=== PATIENT | female | born 1995 | race African-American/Black ===

== ENCOUNTER 2023-12-11 12:52 | Emergency (ER) | payer BC, SELFPAY ==
--- NOTE | ~2023-12-11 | US_ITS ---
EXAMINATION: US OB <=14 wk fetus w TV INDICATION: cramping, bleeding, abnormal US TECHNIQUE: Sonography of the pelvis was performed by transabdominal and transvaginal techniques. COMPARISON: None. RESULT: Uterus: 9.9 x 5.8 x 6.2 cm. Anteverted. Small volume endometrial fluid. Homogenous myometrium. Intrauterine gestational sac: Single present. Mean Sac Diameter: 0.96 cm, corresponding gestational age 5 week 5 days. Yolk sac: Not visualized. Embryo: Not seen. Subgestational hematoma: Absent . Right ovary: 2.5 x 0.7 x 1.5 cm. Vascular flow is present. Large ovarian cyst measuring 12.5 cm x 10.3 x 9.8, mostly anechoic, increased through transmission, thin imperceptible wall, thin avascular septum. Left ovary: 4.3 x 2.5 x 3.1 cm. Vascular flow is present. 1.2 cm simple cyst or dominant follicle. Pelvis free fluid: None. IMPRESSION: Intrauterine of uncertain viability, possibly due to early gestational age. Estimated Gestational Age: 5 weeks, 5 days by mean gestational sac diameter. GUILLE by ultrasound 5. Small volume endometrial fluid, likely blood given the history of hemorrhage. 12.5 cm minimally complicated right ovarian cyst, likely benign. Recommend serial beta-hCG and short-term follow-up ultrasound to establish viability, at which time t he the right ovarian cyst can also be reassessed. Typically the follow-up recommendation for such a c yst would be in 2-6 months so additional follow-up may be required after the viability scan. Reviewed, dictated and finalized at location K. IMPRESSION: Intrauterine of uncertain viability, possibly due to early gestationa l age. Estimated Gestational Age: 5 weeks, 5 days by mean gestational sac diameter. E DD by ultrasound 08/07/24. Small volume endometrial fluid, likely blood given the history of hemorrhage. 12.5 cm minimally complicated right ovarian cyst, likely benign. Recommend serial beta-hCG and short-term follow-up ultrasound to establish viab ility, at which time the the right ovarian cyst can also be reassessed. Typical ly the follow-up recommendation for such a cyst would be in 2-6 months so addit ional follow-up may be required after the viability scan.
[2023-12-11 12:57] VITALS: BP 149/93; PULSE 99; RESP 20; TEMP 36.8; O2SAT 100
--- NOTE | 2023-12-11 13:00 | ED.RECABL ---
HPI - Recheck/Abnormal Lab/Rx General Chief Complaint: Recheck/Abnormal Lab/Rx Stated Complaint: request US for Time Seen by Provider: 12/11/23 13:00 Focused HPI: This is a 28-year-old female, about 8 weeks by LMP, that presents to the emergency department for an abnormal outpatient ultrasound. Reports she has had positive serum test with her OB. She went today for an elective outpatient OB ultrasound which did not show an intrauterine . She was prompted to be seen in the ER. She has been having some spotting and mild cramping. GENERAL: Well-appearing, well-nourished, and in no acute distress. HEAD: Normocephalic, atraumatic. CHEST: Clear to auscultation. ?No respiratory distress. HEART: Regular rate and rhythm.? NEURO: ?Alert and oriented x3. Patient screened in triage and initial orders placed.? ?Additional care and disposition to be based upon?diagnostic testing and treatment. Source: patient Mode of arrival: ambulatory Limitations: no limitations Related Data Allergies Allergy/AdvReac Type Severity Reaction Status Date / Time No Known Allergies Allergy Verified 12/11/23 12:59 Review of Systems Review of Systems: CONSTITUTIONAL: Denies fever GASTROINTESTINAL: Reports pelvic cramping. All systems reviewed & are unremarkable except as noted in HPI and below PMFSH Past Medical History Medical History (Updated 12/11/23 @ 16:31 by Raquel Dooley PA-C) History of hypertension Social History Social History (Updated 12/11/23 @ 13:29 by Raquel Dooley PA-C) Substance use: never Exam Narrative: GENERAL: Well-appearing, well-nourished, and in no acute distress. HEAD: Normocephalic, atraumatic. EYES: EOMI. CHEST: Clear to auscultation. No respiratory distress. No wheezes rales or rhonchi HEART: Regular rate and rhythm. No murmur heard. Normal peripheral pulses. ABDOMEN: Soft, nontender, nondistended, normal active bowel sounds. EXTREMITIES: Normal range of motion. No edema. SKIN: Warm, dry, no rash. NEURO: No focal deficits. Alert and oriented x3. PSYCH: Normal mood and affect Course Course Emergency Course: patient updated on workup and agrees with plan of care Vital Signs Vital signs: Vital Signs Temperature 98.3 F 12/11/23 12:57 Pulse Rate 99 12/11/23 12:57 Respiratory Rate 20 12/11/23 12:57 Blood Pressure 149/93 H 12/11/23 12:57 Pulse Oximetry 100 12/11/23 12:57 Oxygen Delivery Room Air 12/11/23 12:57 Temperature 98.3 F 12/11/23 12:57 Pulse Rate 99 12/11/23 12:57 Respiratory Rate 20 12/11/23 12:57 Blood Pressure 149/93 H 12/11/23 12:57 Pulse Oximetry 100 12/11/23 12:57 Oxygen Delivery Room Air 12/11/23 12:57 MDM - Recheck/Abnormal Lab/Rx MDM Narrative Medical decision making narrative: Patient presents to the emergency department for an abnormal outpatient ultrasound. Has had positive serum test with her OB. Had an elective outpatient ultrasound imaging center which did not show an intrauterine . She was prompted to be seen in the ER. She is afebrile and nontoxic appearing. CBC and metabolic panel without concerning findings. Quantitative beta-hCG 24,869. Patient is O positive. She was reporting some mild spotting. Obstetric ultrasound shows intrauterine of uncertain viability. Also shows an ovarian cyst. Patient reports this is known to her. Patient updated on her workup and agrees with plan of care. Will be given order for repeat quantitative beta hCG. Instructed to have close follow-up with her OB and on pelvic rest. She was given warnings to return to the ER Differential Diagnosis Differential diagnosis: Likely other ( miscarriage, threatened miscarriage, ovarian cyst) Lab Data Attestation: I reviewed the patient's lab results. 12/11/23 13:17 12/11/23 13:17 Labs: Lab Results 12/11/23 Range/Units 13:17 WBC 5.5 (4.5-10.0) K
[2023-12-11 13:29] LABS: Basophils Percent Auto 0.5 % (0.2-1.2); Eosinophils Absolute Auto 0.1 K/mm3 (0-0.3); Eosinophils Percent Auto 1.6 % (0-4.4); Hemoglobin 13.6 g/dL (12.0-15.0); Immature Granulocyte Absolute 0.02 K/mm3 (0.00-0.031); Immature Granulocyte Percent A 0.4 % (0-0.5); Lymphocytes Absolute Auto 1.47 K/mm3 (0.9-3.2); Lymphocytes Percent Auto 26.6 % (18.3-44.2); Mean Corpuscular HGB Conc 32.4 g/dl (32-36); Mean Corpuscular Hemoglobin 26.3 pg (26-34); Mean Corpuscular Volume 81.1 fl (80-100); Mean Platelet Volume 9.3 fl (7.4-10.4); Monocytes Absolute Auto 0.5 K/mm3 (0.1-0.6); Monocytes Percent Auto 8.9 % (2.6-8.5); Neutrophils Absolute Auto 3.4 K/mm3 (1.3-6.7); Platelet Count Result 283 k/mm3 (150-375); Red Blood Count 5.18 M/mm3 (4.2-5.4); Red Cell Distribution Width 13.3 % (11.5-14.5); White Blood Count 5.5 K/mm3 (4.5-10.0)
[2023-12-11 13:43] LABS: Alanine Aminotransferase 32 U/L (6-35); Albumin Level 4.8 g/dL (3.5-5.1); Alkaline Phosphatase 55 U/L (38-126); Anion Gap 11 mmol/L (4-12); Aspartate Amino Transferase 29 U/L (14-36); Bilirubin,Total 1.2 mg/dL (0.2-1.3); Blood Urea Nitrogen 7 mg/dL (7-17); Calcium 9.6 mg/dL (8.4-10.2); Carbon Dioxide 21 mmol/L (22-30); Chloride 105 mmol/L (98-107); Estimated CRCL calculation 93 ml/min; Estimated Glomerular Filt Rate > 60; Glucose 82 mg/dL (65-110); Potassium 3.8 mmol/L (3.4-5.0); Sodium 137 mmol/L (137-145)
[2023-12-11 16:41] VITALS: BP 129/83; PULSE 71; RESP 16; TEMP 36.8; O2SAT 100
== END 2023-12-11 16:35 | disposition home or self-care (01) ==
PROVIDERS: Emergency Provider Physician Assistant
DX: O20.9 Hemorrhage in early pregnancy, unspecified (principal); O34.81 Maternal care for other abnormalities of pelvic organs, first trimester; N83.201 Unspecified ovarian cyst, right side; Z3A.01 Less than 8 weeks gestation of pregnancy
CPT/HCPCS: 36415; 76801; 76817; 80053; 84702; 85025; 85461; 86850; 86900; 86901; 99284

== ENCOUNTER 2024-04-24 17:32 | Emergency (ER) | payer BC, SELFPAY ==
[2024-04-24 17:39] VITALS: BP 167/100; PULSE 95; RESP 16; TEMP 36.4; O2SAT 100
[2024-04-24 18:38] VITALS: BP 154/95; PULSE 98; RESP 16; O2SAT 99
[2024-04-24 19:23] VITALS: BP 135/85; PULSE 85; RESP 20; TEMP 36.6; O2SAT 99
[2024-04-24 19:24] VITALS: PULSE 85
[2024-04-24 20:12] LABS: Add Urine Microscopic? YES; Appearance Urine Clear (Clear); Bacteria Urine None Seen /hpf; Bilirubin Urine Negative (Negative); Blood Urine Negative (Negative); Color Urine Yellow (Yellow); Glucose Urine UA Negative (Negative); Ketones Urine Negative (Negative); Leukocyte Esterase Ur Trace LEU/UL (Negative); Nitrate Urine Negative (Negative); Non Pathogenic Casts 0-2; Protein Urine Negative (Negative); RBC Urine 0-2 /hpf (0-2); Specific Grav Ur 1.012 (1.001-1.035); Squamous Epithelial Cell Urine Few /hpf (Few); Urobilinogen Urine 0.2 mg/dL (<2.0); WBC Urine 0-5 /hpf (0-3)
--- NOTE | 2024-04-24 20:25 | ED.RECABL ---
HPI - Recheck/Abnormal Lab/Rx General Chief Complaint: Recheck/Abnormal Lab/Rx Stated Complaint: htn 6 weeks Time Seen by Provider: 04/24/24 19:24 Source: patient Mode of arrival: ambulatory Limitations: no limitations History of Present Illness HPI narrative: This is a 29-year-old female, with history of preeclampsia, who presents to emergency department at recommendation of her OB for elevated blood pressure. The patient states earlier today she had a headache. Her blood pressure the time was 160/100. She took 20 mg of oral labetalol at the recommendation of her OB and presented for evaluation. She states her headache has since resolved. She denies lower extremity swelling, chest pain, shortness of breath, change of vision and has no other complaints at this time. Related Data Allergies Allergy/AdvReac Type Severity Reaction Status Date / Time No Known Allergies Allergy Verified 12/11/23 12:59 Review of Systems Review of Systems: All systems reviewed & are unremarkable except as noted in HPI and below PMFSH Past Medical History Medical History History of hypertension Preeclampsia Surgical History Surgical History No significant past surgical history Social History Social History Smoking status: Never smoker Alcohol intake: never Substance use: never Exam Narrative: GENERAL: Well-developed, well-nourished, and in no acute distress. HEAD: Normocephalic, atraumatic. EYES: PERRLA and EOMI. CHEST: Clear to auscultation. No respiratory distress. No wheezes rales or rhonchi HEART: Regular rate and rhythm. No murmur heard. Normal peripheral pulses. ABDOMEN: Soft, nontender, nondistended, normal active bowel sounds. EXTREMITIES: Normal range of motion. No edema. SKIN: Warm, dry, no rash. NEURO: Alert and oriented x3. No focal deficit. Moving all 4 limbs spontaneously PSYCH: Normal mood and affect. Course Course Emergency Course: 20:30 - UA demonstrates trace leukocyte esterase but is otherwise unremarkable, including negative for bacteria and protein. The patient's blood pressure improved to 135/85 with most recent measurement of 144/85. I discussed the patient with on-call OB physician, Dr. Ramon who agrees with outpatient follow-up. I discussed the findings and recommendations with The patient. Discussed return and emergency precautions including signs/symptoms of stroke, preeclampsia and eclampsia. The patient voiced understanding and agreement with the plan. All questions answered to her satisfaction. Vital Signs Vital signs: Vital Signs Temperature 97.6 F 04/24/24 17:39 Pulse Rate 95 04/24/24 17:39 Respiratory Rate 16 04/24/24 17:39 Blood Pressure 167/100 H 04/24/24 17:39 Pulse Oximetry 100 04/24/24 17:39 Temperature 97.8 F 04/24/24 19:23 Pulse Rate 85 04/24/24 19:24 Respiratory Rate 20 04/24/24 19:23 Blood Pressure 135/85 04/24/24 19:23 Pulse Oximetry 99 04/24/24 19:23 MDM - Recheck/Abnormal Lab/Rx MDM Narrative Medical decision making narrative: Plan: Labs, observation, reassess Differential Diagnosis Differential diagnosis: Likely other (Preeclampsia, hypertension, other) Lab Data Labs: Lab Results 04/24/24 Range/Units 19:39 Urine Color Yellow (Yellow) Urine Appearance Clear (Clear) Urine pH 7.0 (5.0-9.0) Ur Specific [place] 1.012 (1.001-1.035) Urine Protein Negative (Negative) mg/dL Urine Glucose (UA) Negative (Negative) mg/dL Urine Ketones Negative (Negative) mg/dL Ur Blood (Man) Negative (Negative) Urine Nitrate Negative (Negative) Urine Bilirubin Negative (Negative) Urine Urobilinogen 0.2 (<2.0) mg/dL Leukocyte Esterase Rfl Trace H (Negative) ERIN/UL Urine RBC 0-2 (0-2) /hpf Urine WBC 0-5 (0-3) /hpf Ur Squamous Epith Cells Few (Few) /hpf Urine Bacteria None seen /hpf Urine Casts 0-2 Discharge Plan Discharge Clinical Impression: Hypertension Patient Disposition: Home, Self-Care Condition: Stable Instructions: Antibiotic Form, Hypertension During (ED) Additional Instructions: You were seen in the emergency department. Your blood pressure improved with use of labetalol. Your urinalysis is not concerning for injury to the kidneys and your exam is not concerning other changes concerning for preeclampsia. I discussed your findings with your OB team. I recommend continued use of labetalol and follow-up with your OB. If you develop change/loss of vision, lower extremity swelling, chest pain, shortness of breath, bleeding, or if you have other emergent concerns for life, limb, or eyesight, return to the emergency department. Patient Language: [place] Follow-up/Referrals: Mesfin Kirk MD [Physician] - 1 Week UNKNOWN,DOCTOR [Primary Care Provider] - Time of Disposition: 20:32
== END 2024-04-24 20:40 | disposition home or self-care (01) ==
PROVIDERS: Emergency Provider Preventive Medicine Aerospace Medicine
DX: O16.1 Unspecified maternal hypertension, first trimester (principal); Z3A.01 Less than 8 weeks gestation of pregnancy
CPT/HCPCS: 81001; 99284

== ENCOUNTER 2024-09-03 12:04 | Outpatient (CLI) | payer OTHER, SELFPAY ==
--- NOTE | 2024-09-03 | ECG_ITS ---
Test Date: 2024-09-03 12:27:05 Measurements Intervals [place] Rate: 88 P: 55 WI: 159 QRS: 33 QRSD: 77 T: 5 QT: 357 QTc: 433 Interpretive Statements SINUS RHYTHM POSSIBLE LEFT ATRIAL ENLARGEMENT [-0.1mV P-WAVE IN V1/V2] NONSPECIFIC ST AND T-WAVE ABNORMALITY No previous ECG available for comparison Electronically Signed On 09-03-2024 15:49:59 MEDICAL RADIATION DOSIMETRIST by Yamileth Starr M.D.
--- OUTSIDE RECORDS SUMMARY | 2024-09-03 13:36 | XMS_ITS | Clinical Summary ---
Author Organization [facility] Address [address] [place] [address] Care Team Providers Care Digital Pre Press Operator Name Role Phone Unavailable Primary Care Provider Unavailabl e Source Comments [facility],non-owned Affiliates and Associated Physician Practices is amultiple site organization consisting of ambulatory clinics and hospital sitesin [place], [place], [place] and [place]. This disclosure is being madepursuant to the Care Everywhere program and may not contain all information available regarding this patient. Last updated 18.[facility] Allergies No known active allergies Medications * Be aware that medications may not be up to date on this document. Alwaysverify current medications with the patient. Medication Sig Dispensed Refills Start Date End Date Status Vit-DSS-Fe Fum-FA ( VITAMIN WITH IRON) tabletIndications:Pre gnancy Take 1 (one) tablet by mouth once daily Reasons: Active iron polysaccharides (NIFEREX 150) 150 MG capsule Take 1 (one) capsule by mouth once daily 100 capsule 09/19/2020 Active Additional Information Patient not taking.Reported on 12/20/2023 ibuprofen (MOTRIN) 600 MG tablet Take 1 (one) tablet by mouth every 6 hours as needed for Pain 40 tablet 1 09/19/2020 Active Additional Information Patient not taking.Reported on 12/20/2023 docusate sodium (COLACE) 100 MG capsule Take 1 (one) capsule by mouth 2 times daily 60 capsule 1 09/19/2020 Active Additional Information Patient not taking.Reported on 12/20/2023 amLODIPine (Norvasc) 10 MG tablet Take 1 (one) tablet by mouth once daily 07/26/2023 Active Active Problems Problem Noted Date Diagnosed Date Pre-eclampsia in third trimester 09/16/2020 Elevated blood pressure read ing without diagnosis of hypertension 09/15/2020 Chest pain 09/15/2020 Gestational diabetes mellitus (GDM), antepartum 08/31/2020 Overview (09/01/2020): GCT: 183, 08/09 GTT: 96, 187, 160, 166, 08/12 Assessment & Plan (09/15/2020 4:57 PM CDT): Accelerated AC noted two weeks ago, overall EFW: 0g, 73%. Hyperglycemia noted with fasting glucoses. Sporadic after meal elevations. Completing testing with primary [facility] twice weekly. Strong efforts with dietary changes. MFM recommendations: 1. Encouraged to check glucose 4x daily, fasting and one hour after each meal. 2. Close contact with our CDE, on at least a weekly basis. 3. Recommend twice daily kick counts--explained. 4. Twice weekly NST from 34 or 36 weeks until delivery, depending if medications are needed for treatment of GDM. BPP to be added at 36 weeks due to co-morbidity of obesity. 5. Serial Ultrasound assessment of growth every 3-4 weeks is recommended, with a reassessment between 37-38 weeks for mode of delivery planning. 6. Recommend initiation of delivery at 39 weeks. 7. Encourage 2 hour GTT at 4 weeks PP, to be reviewed at 6 week PP exam. 8. recommended and encouraged today, reviewed both maternal and benefits. Assessment & Plan (09/01/2020 12:32 PM OBSTETRICS TECH): Accelerated AC noted today, overall EFW: 0g, 73%. ADRIANA: 14.9cm. To begin glucose monitoring today. Has been making dietary modifications for the past 3 weeks. MFM recommendations: 1. Encouraged to check glucose 4x daily, fasting and one hour after each meal. Reviewed what fasting glucoses show us in comparison to after meal check in terms of effects on the fetus. 2. Close contact with our CDE, on at least a weekly basis. 3. Recommend twice daily kick counts--explained. 4. Twice weekly NST from 34 or 36 weeks until delivery, depending if medications are needed for treatment of GDM. BPP to be added at 36 weeks due to co-morbidity of obesity. 5. Serial Ultrasound assessment of growth every 3-4 weeks is recommended, with a reassessment between 37-38 weeks for mode of delivery planning. 6. Recommend initiation of delivery at 39 weeks. 7. Encourage 2 hour GTT at 4 weeks PP, to be reviewed at 6 week PP exam. 8. recommended and encouraged today, reviewed both maternal and benefits. Supervision of high-risk of young prim igravida 08/31/2020 Overview (08/31/2020): Dating: LMP c/w 8w4d u/s with CRL of 2.18cm, making GUILLE: 10/29/20 summary: O+/Imm/-/-HIV NR GC/CT: neg/neg 2/8: H/H: 10.9/32.3, HIV and TP-PA NR Obesity affecting , antepartum 09/01/19 Assessment & Plan (09/15/2020 5:10 PM CDT): Total weight gain thus far: 16 pounds Mild range blood pressure in office today. Negative urine protein, denies symptoms of preeclampsia. Complaints of intermittent chest pain today in office MFM recommendations: 1. Limit weight gain to 0-15 pounds. Active weight loss is not encouraged. 2. Reviewed healthy dietary choices today with patient in combination with CDE. 3. Serial growth ultrasounds. 4. Weekly testing to include 8 point BPP recommended at 36 weeks. 5. Educated on preeclampsia warnings today, handout also provided. 6. Late to care for ASA benefit. 7. DVT warnings reviewed and when to seek medical evaluation. 8. Sent to [facility] for evaluation of chest pain complaints, report called to Roselyn CEVALLOS in [place]. Primary OB also alerted of patient's complaints and I talked with Peyton at Dr. Portillo office. Assessment & Plan (09/01/2020 12:44 PM OBSTETRICS TECH): Total weight gain thus far: 12 pounds Normotensive. Negative urine protein or for preeclampsia symptoms. MFM recommendations: 1. Limit weight gain to 0-15 pounds. Active weight loss is not encouraged. 2. Reviewed healthy dietary choices today with patient in combination with CDE. 3. Serial growth ultrasounds. 4. Weekly testing to include 8 point BPP recommended at 36 weeks. 5. Educated on preeclampsia warnings today, handout also provided. 6. Late to care for ASA benefit. 7. DVT warnings reviewed and when to seek medical evaluation. Prediabetes 07/02/2019 Overview (09/15/2020): No treatment offered at time of diagnosis by PCP, no available Hemoglobin A1c available for review. Last hemoglobin A1c: 5.7%, 2018 Assessment & Plan (09/01/2020 12:29 PM OBSTETRICS TECH): No treatment offered at time of diagnosis by PCP, no available Hemoglobin A1c available for review. M recommendations: 1. Sent with lab requistion today for hemoglobin A1c, CMP. 2. Requested records from patient's PCP Dr. Kimble. 3. Consider echocardiogram if A1c is elevated, not all imaging obtained today. Irregular menses Resolved Problems Problem Noted Date Diagnosed Date Resolved Date Obesity 09/01/2020 Immunizations Name Administration Dates Next Due MMR 09/18/2020(Deferred: See Comment s - Pt rubella immunes) TDAP (7yrs+) 09/18/2020(Deferred: - taken at 28 weeks per pt) Family History Medical History Relation Name Comments Pulmonary Embolism Maternal Aunt treated with dialysis Sickle Cell Trait Sister 1 Relation Name Status Comments Brother Alive Maternal Aunt Sister 1 Alive Sister 2 Alive half-brother Alive Social History Tobacco Use Types Packs/Day Years Used Date Smoking Tobacco: Never Smokeless Tobacco: Never Alcohol Use Standard Drinks/Week Comments Not Currently 0 (1 standard drink = 0.6 oz pur e alcohol) AUDIT-C Answer Date Recorded Q1: How often do you have a drink containing alc ohol? Monthly or less 12/19/2023 Q2: How many drinks containi ng alcohol do you have on a typical day when you are drinking? 1 or 2 12/19/2023 Q3: How often do you have si x or more drinks on one occasion? Never 12/19/2023 Overall Financial Resource Strain (CARDIA) Answe r Date Recorded How hard is it for you to pa y for the very basics like food, housing, medical care, and heating? Not very hard 12/20/2023 [facility] Occupat ional [facility] - Occupational Stress Questionnaire Answer Date Recorded Do you feel stress - tense, restless, nervous, or anxious, or unable to sleep at night because your mind is troubled all the time - these days? Not at all 12/20/2023 Hunger Vital Sign Answer Date Recorded Within the past 12 months, y ou worried that your food would run out before you got the money to buy more. Never true 12/20/19 24 Within the past 12 months, t he food you bought just didn't last and you didn't have money to get more. Never true 12/20/2023 PRAPARE - Transportation Answer Date Re corded In the past 12 months, has l ack of transportation kept you from medical appointments or from getting medications? No 12/01 In the past 12 months, has l ack of transportation kept you from meetings, work, or from getting things needed for daily living? No 12/20/2023 Housing Stability Vital Sign Answer Lamont e Recorded In the last 12 months, was t here a time when you were not able to pay the mortgage or rent on time? No 12/20/2023 In the last 12 months, how many places have you lived? 1 12/20/2023 In the last 12 months, was t here a time when you did not have a steady place to sleep or slept in a half-way (including now)? No 12/20/2023 [place] Depression Scale Answer Date Recorded [place] Depression Scale Total 0 12/20/2023 The thought of harming myself has occurred to me . Never 12/20/2023 Sex and Gender Information Value Date Recorded Sex Assigned at Female 03/21/2021 1:30 PM CDT Gender Identity Female 03/21/2021 1:30 PM CDT Sexual Orientation Straight 03/21/2021 1: 30 PM CDT Last Filed Vital Signs Vital Sign Reading Time Taken Comments Blood Pressure 135/87 12/20/2023 11:33 AM CDT Pulse 84 12/20/2023 11:33 AM CDT Temperature 36.8 C (98.2 F) 09/19/2020 12:30 PM CDT Respiratory Rate 16 12/20/2023 11:33 AM CDT Oxygen Saturation 98% 09/19/2020 12:30 PM CDT Inhaled Oxygen Concentration - - Weight 108.4 kg (239 lb) 12/20/2023 11:33 AM CDT Height 154.9 cm (5' 1 ) 12/20/2023 11:33 AM CDT Body Mass Index 45.16 12/20/2023 11:33 AM CDT Plan of Treatment Health Maintenance Due Date Last Done Comments PAP SMEAR 1997 HIV SCREENING 02/06/2012 DTAP/TDAP/TD VACCINES (1 - Tdap) 02/06/2016 HEPATITIS B VACCINE (1 of 3 - 19+ 3-dose series) 02/06/2016 COVID-19 VACCINE (1 - 2023- season) 2024 INFLUENZA VACCINE (#1) 2024 3, 05/07/2022, 06/01/2020, Additional history exists DEPRESSION SCREENING 07/02/2024 12/20/2023 ZOSTER VACCINE (1 of 2) 2047 HEPATITIS C SCREENING Completed 09/16/2020 HIB VACCINE Aged Out No longer eligi ble based on patient's age to complete this topic HPV VACCINE Aged Out No longer eligi ble based on patient's age to complete this topic MENINGOCOCCAL (Group B) VACCINE Aged Out No longer eligible based on patient's age to complete this topic MENINGOCOCCAL VACCINE Aged Out No geovani adrienne eligible based on patient's age to complete this topic PNEUMOCOCCAL VACCINE Aged Out No long er eligible based on patient's age to complete this topic Procedures Procedure Name Priority Date/Time Associated Diagnosis Comments HEPATITIS SCREEN ACUTE Routine 09/16/2020 8:09 AM CDT from Last 3 Months or Most Recently Relevant to Health Maintenance Results * HEPATITIS SCREEN ACUTE (09/16/2020 8:09 AM CDT) HAV Antibody IgM Non Reactive Non Reactive 09/16/2020 10:17 AM CDT [facility] HBsAg Non Reactive Non Reactive 09/16/2020 10:17 AM CDT [facility] HBc Antibody IgM Non Reactive Non Reactive 09/16/2020 10:17 AM CDT [facility] HCV Antibody Screen Non Reactive Non Reactive 09/16/2020 10:17 AM CDT [facility] Blood BLOOD SPECIMEN / Unknown Lab Venipuncture / Unknown 09/16/2020 8:09 AM CDT 09/16/2020 9:22 AM CDT Narrative [facility] - 09/16/2020 10:17 AM CDT Non Reactive - Antibodies to Hepatitis C virus (HCV) were not detected, result does not exclude early acute HCV infection. Jamie Leija MD LAB - CHEMISTRY [facility] [address] [place] [address] from Last 3 Months or Most Recently Relevant to Health Maintenance Advance Directives * Full Code (Latest Code Status on File) Date Activated Date Inactivated Comments 09/16/2020 12:00 PM 09/19/2020 2:43 PM * Full Code Date Activated Date Inactivated Comments 09/15/2020 8:25 PM 09/16/2020 12:00 PM * Full Code Date Activated Date Inactivated Comments 09/15/2020 4:53 PM 09/15/2020 8:25 PM
--- OUTSIDE RECORDS SUMMARY | 2024-09-03 13:36 | XMS_ITS | Data Portability ---
Author Organization [facility] [address] [place] [address] Care Team Providers Care Shoe Lay Out Planner Name Role Phone EMMETT TORRE Primary Care Provider Assessment Encounter Date Assessment Date Assessment LastModified by Organization Details LastModified Time 01/18/2023 01/18/2023 27yo F w/ a PMH of dermoid cyst, DM2, HTN and morbid obesity presenting for back pain. [email or web address] Not available 01/22/2023 01:46:09 11/16/2023 11/16/2023 Will refer to high risk mfm due to hx htn. [email or web address] Not available 11/16/2023 14:36:43 12/14/2023 12/14/2023 After discussion about SAB risks, blighted ovum, early normal , etc we will have her keep her US apt for 12/27 at this point. We will discuss changing her BP med after that US shows viability [email or web address] Not available 12/14/2023 12:27:44 Plan of Treatment Reminders Order Date Submit Date Provider Last Modified By Organization Details Last Modified Time Details Appointments None recorde d. Lab HCG, intact + beta subunit , quant, serum or plasma 2023 024 [facility], [address] [address], [place], [address], 16:14:48 prenata l panel 2023 024 [facility], [address] [facility] [address], [place], [address], 4 16:14:42 drug screen, urine 2023 024 [facility], [address], [place], [address], 4 16:14:47 hemoglo bin S (hbs), presenc e, blood 2023 024 [facility], [address], [place], [address], 4 16:14:49 varicel la zoster virus IgG Ab, QN, IA, serum 2023 024 [facility], [address], [place], [address], 4 16:14:51 trichom onas vaginal is RNA 2023 024 [facility], [address], [place], [address], 4 16:14:46 hsv (1+2) igg, serum 2023 024 [facility], [address], [place], [address], 4 16:14:43 mycopla sma genital ium DNA, QL, KETURAH+pro be, urine 2023 024 [facility], [address], [place], [address], 4 16:14:45 rapid strep group A, throat 2022 023 ROBERT In-Office Order, Internal Use Only DO Not Attach Compendium DO Not Attach Compendium, Do Not Delete/merge, [id number] 3 15:03:09 rapid strep group A, throat 2022 023 [email or web address] In-Office Order, Internal Use Only DO Not Attach Compendium DO Not Attach Compendium, Do Not Delete/merge, [id number] 3 19:16:56 influen za virus A + B + SARS-Co V-2 (COVID1 9) Ag panel, rapid IA, upper respira tory specime n 2022 023 [email or web address] In-Office Order, Internal Use Only DO Not Attach Compendium DO Not Attach Compendium, Do Not Delete/merge, [id number] 3 19:16:56 Referral materna l & medicin e referra l 2023 024 [facility], [address] [place] [address], [address], 4 15:34:14 Procedures None recorde d. Surgeries None recorde d. Imaging US, obstetr ic, 1st trimest er 2023 024 [email or web address] Joni [facility]uling, [address] [facility], [place], [address], 4 10:21:32 Medication Orders ondanse adam 8 mg disinte grating tablet 2023 024 [facility], [address] [facility], [place], [address], 4 12:28:45 Prenata l 28 mg iron-80 0 mcg tablet 2023 024 [facility], [address] [facility], [place], [address], 4 12:39:31 amoxici llin 875 mg tablet 2022 023 [id number], [address] [facility], [place], [address], 4 11:10:56 cyclobe nzaprin e 5 mg tablet 2022 023 [email or web address] [id number], [address] [facility], [place], [address], 12:13:40 Patient TargetsNo targets recorded. Patient Instructions Encounter Date Encounter Id Patient Instructions Last Modified By Organization Details Last Modified Time 01/18/2023 [id number] back stretches: exercises [email or web address] Not available 01/22/2023 01:45:57 shoulder stretches: exercises [email or web address] Not available 01/22/2023 01:45:57 neck spasm: exercises [email or web address] Not available 01/22/2023 01:45:57 A healthy lifestyle: care instructions [email or web address] Not available 01/19/2023 11:26:15 Attending Physician Addendum I did not personally see or examine the patient with the resident. I was physically present to provide indirect supervision through entire encounter. I have reviewed the documentation and agree with the history, physical findings, work-up, and medical decision making as recorded. Mari Valentine MD [email or web address] Not available 01/22/2023 09:40:51 03/20/2023 [id number] Attending Physician Attestation I did not personally see or examine the patient with the resident. I was physically present to provide indirect supervision through entire encounter. I have reviewed the documentation and agree with the history, physical findings, work-up, and medical decision making as recorded. Jose Enrique Whittington MD [email or web address] Not available 03/20/2023 18:20:50 03/26/2023 [id number] On the date of this encounter, I was immediately available to assist the resident/fellow in the care of the patient, and have reviewed and agree with the resident s findings and plan of care. ~MD Tania [email or web address] Not available 03/26/2023 12:37:07 11/16/2023 [id number] extreme nausea and vomiting in : care instructions [email or web address] Not available 11/16/2023 12:28:39 high-risk : care instructions [email or web address] Not available 11/16/2023 12:28:40 Reason for Referral Maternal & Medicine Re ferral for High risk Referring Physician: Ericka Lamas, Communications Department Chair, Encounter Date: 11/16/2023 Results Created Date Observation Date Name Description Value Unit Range Abnormal Flag Note LastModifiedBy Organization Detail LastModifiedTime 03/20/2003/20/2023 influ myesha virus A + B + SARS- CoV-2 (COVI D19) Ag panel , rapid IA, upper respi rator y speci men Flu A negati ve Not Available In-Office Order Internal Use Only DO Not Attach Compendium DO Not Attach Compendium, Do Not Delete/merge, [id number] 03/20/2023 17:19:50 03/20/20 23 03/20/2023 influ myesha virus A + B + SARS- CoV-2 (COVI D19) Ag panel , rapid IA, upper respi rator y speci men Flu B negati ve Not Available In-Office Order Internal Use Only DO Not Attach Compendium DO Not Attach Compendium, Do Not Delete/merge, 03/20/2023 17:19:50 03/20/20 23 03/20/2023 influ myesha virus A + B + SARS- CoV-2 (COVI D19) Ag panel , rapid IA, upper respi rator y speci men Rapid SARS CoV 2 Ag, QL IA, respiratory specimen negati ve Not Available In-Office Order Internal Use Only DO Not Attach Compendium DO Not Attach Compendium, Do Not Delete/merge, 03/20/2023 17:19:50 03/20/20 23 03/20/2023 rapid strep group A, throa t Strep negati ve Not Available In-Office Order Internal Use Only DO Not Attach Compendium DO Not Attach Compendium, Do Not Delete/merge, 03/20/2023 16:57:58 03/26/20 23 03/26/2023 rapid strep group A, throa t Strep negati ve Not Available In-Office Order Internal Use Only DO Not Attach Compendium DO Not Attach Compendium, Do Not Delete/merge, 03/26/2023 12:05:12 11/16/19 24 11/20/2023 HGB FRACT IONAT ION CASCA DE HGB F 0.0 % 0.0-2. 0 Not Available [facility] [address] [facility] [address], [place], [address], 11/21/2023 16:14:41 11/16/19 24 11/20/2023 HGB FRACT IONAT ION CASCA DE HGB A 60.7 % 96.4-9 8.8 below low normal Not Available [facility] ([facility]) [address] [facility] [address], [place], [address], 11/21/2023 16:14:41 11/16/19 24 11/20/2023 HGB FRACT IONAT ION CASCA DE HGB A2 3.2 % 1.8-3. 2 Not Available [facility] ([facility]) [address] [facility] [address], [place], [address], 11/21/2023 16:14:41 11/16/19 24 11/20/2023 HGB FRACT IONAT ION CASCA DE HGB S 36.1 % 0.0 above high normal Not Available [facility] ([facility]) [address] [facility] [address], [place], [address], 11/21/2023 16:14:41 11/16/19 24 11/20/2023 HGB FRACT IONAT ION CASCA DE interpretati on: Commen t Hemog dejah rodriguez rn and lamine ntrat ions are consi stent with sickl e cell trait (hete rozyg ous). Sugge st clini ivette and hemat ologi c corre latio n. Sickl e Trait Inter preta tion Range s Hgb A 50.0 - 70.0% Hgb S 30.0 - 45.0% Hgb A2 1.8 - 4.0% Not Available [facility] ([facility]) [address] [facility] [address], [place], [address], 11/21/2023 16:14:41 11/16/19 24 11/17/2023 INTER PRETA TION: interpretati on: Commen t Not infec lion with HCV unles s early or acute infec tion is suspe cted (whic h may be delay ed in an immun ocomp romis ed indiv idual ), or other evide nce exist s to indic ate HCV infec tion. Not Available [facility] ([facility]) [address] [facility] [address], [place], [address], 11/21/2023 16:14:41 11/16/19 24 11/17/2023 PREGN SHELBIE, INITI AL SCREE N HBsAg screen NEGATI VE negati ve Not Available [facility] ([facility]) [address] [facility] [address], [place], [address], 11/21/2023 16:14:42 11/16/19 24 11/17/2023 PREGN SHELBIE, INITI AL SCREE N HCV Ab NON REACTI VE nonrea ctive Not Available [facility] ([facility]) [address] [facility] [address], [place], [address], 11/21/2023 16:14:42 11/16/19 24 11/17/2023 PREGN SHELBIE, INITI AL SCREE N RPR NON REACTI VE nonrea ctive Not Available [facility] ([facility]) [address] [place], [address], 11/21/2023 16:14:42 11/16/19 24 11/17/2023 PREGN SHELBIE, INITI AL SCREE N rubella antibodies, IgG 3.83 index immune >0.99 Non-i mmune <0.90 Equiv ocal 0.90 - 0.99 Immun e >0.99 Not Available [facility] ([facility]) [address] [place], [address], 11/21/2023 16:14:42 11/16/19 24 11/17/2023 PREGN SHELBIE, INITI AL SCREE N ABO grouping O Not Available [facility] ([facility]) [address] [place], [address], 11/21/2023 16:14:42 11/16/19 24 11/17/2023 PREGN SHELBIE, INITI AL SCREE N Rh factor POSITI VE Pleas e note: Prior recor ds for this patie nt's ABO / Rh type are not avail able for addit ional verif icati on. Not Available [facility] ([facility]) [address] [facility] [address], [place], [address], 11/21/2023 16:14:42 11/16/19 24 11/17/2023 PREGN SHELBIE, INITI AL SCREE N antibody screen NEGATI VE negati ve Not Available [facility] ([facility]) [address] [facility] [address], [place], [address], 11/21/2023 16:14:42 11/16/19 24 11/17/2023 PREGN SHELBIE, INITI AL SCREE N HIV Ab/P24 Ag screen NON REACTI VE nonrea ctive HIV Negat alexandra HIV-1 /HIV- 2 antib odies and HIV-1 p24 antig en were NOT detec lion. There is no labor atory evide nce of HIV infec tion. Not Available [facility] ([facility]) [address] [facility] [address], [place], [address], 11/21/2023 16:14:42 11/16/19 24 11/17/2023 PREGN SHELBIE, INITI AL SCREE N WBC 5.5 x10e3 /uL 3.4-10 .8 Not Available [facility] ([facility]) [address] [facility] [address], [place], [address], 11/21/2023 16:14:42 11/16/19 24 11/17/2023 PREGN SHELBIE, INITI AL SCREE N RBC 4.64 x10e6 /uL 3.77-5 .28 Not Available [facility] ([facility]) [address] [place], [address], 11/21/2023 16:14:42 11/16/19 24 11/17/2023 PREGN SHELBIE, INITI AL SCREE N hemoglobin 12.1 g/dL 11.1-1 5.9 Not Available [facility] ([facility]) [address] [facility] [address], [place], [address], 11/21/2023 16:14:42 11/16/19 24 11/17/2023 PREGN SHELBIE, INITI AL SCREE N hematocrit 36.8 % 34.0-4 6.6 Not Available [facility] ([facility]) [address] [place], [address], 11/21/2023 16:14:42 11/16/19 24 11/17/2023 PREGN SHELBIE, INITI AL SCREE N MCV 79 fL 79-97 Not Available [facility] ([facility]) [address] [place], [address], 11/21/2023 16:14:42 11/16/19 24 11/17/2023 PREGN SHELBIE, INITI AL SCREE N MCH 26.1 pg 26.6-3 3.0 below low normal Not Available [facility] ([facility]) [address] [place], [address], 11/21/2023 16:14:42 11/16/19 24 11/17/2023 PREGN SHELBIE, INITI AL SCREE N MCHC 32.9 g/dL 31.5-3 5.7 Not Available [facility] ([facility]) [address] [place], [address], 11/21/2023 16:14:42 11/16/19 24 11/17/2023 PREGN SHELBIE, INITI AL SCREE N RDW 13.2 % 11.7-1 5.4 Not Available [facility] ([facility]) [address] [place], [address], 11/21/2023 16:14:42 11/16/19 24 11/17/2023 PREGN SHELBIE, INITI AL SCREE N platelets 326 x10e3 /uL 150-45 0 Not Available [facility] ([facility]) [address] [place], [address], 11/21/2023 16:14:42 11/16/19 24 11/17/2023 PREGN SHELBIE, INITI AL SCREE N neutrophils 60 % notest ab. Not Available [facility] ([facility]) [address] [facility] [address], [place], [address], 11/21/2023 16:14:42 11/16/19 24 11/17/2023 PREGN SHELBIE, INITI AL SCREE N lymphs 28 % notest ab. Not Available [facility] ([facility]) [address] [facility] [address], [place], [address], 11/21/2023 16:14:42 11/16/19 24 11/17/2023 PREGN SHELBIE, INITI AL SCREE N monocytes 8 % notest ab. Not Available [facility] ([facility]) [address] [facility] [address], [place], [address], 11/21/2023 16:14:42 11/16/19 24 11/17/2023 PREGN SHELBIE, INITI AL SCREE N eos 2 % notest ab. Not Available [facility] ([facility]) [address] [facility] [address], [place], [address], 11/21/2023 16:14:42 11/16/19 24 11/17/2023 PREGN SHELBIE, INITI AL SCREE N basos 1 % notest ab. Not Available [facility] ([facility]) [address] [facility] [address], [place], [address], 11/21/2023 16:14:42 11/16/19 24 11/17/2023 PREGN SHELBIE, INITI AL SCREE N neutrophils (absolute) 3.4 x10e3 /uL 1.4-7. 0 Not Available [facility] ([facility]) [address] [place], [address], 11/21/2023 16:14:42 11/16/19 24 11/17/2023 PREGN SHELBIE, INITI AL SCREE N lymphs (absolute) 1.6 x10e3 /uL 0.7-3. 1 Not Available [facility] ([facility]) [address] [place], [address], 11/21/2023 16:14:42 11/16/19 24 11/17/2023 PREGN SHELBIE, INITI AL SCREE N monocytes(ab solute) 0.4 x10e3 /uL 0.1-0. 9 Not Available [facility] ([facility]) [address] [place], [address], 11/21/2023 16:14:42 11/16/19 24 11/17/2023 PREGN SHELBIE, INITI AL SCREE N eos (absolute) 0.1 x10e3 /uL 0.0-0. 4 Not Available [facility] ([facility]) [address] [facility] [address], [place], [address], 11/21/2023 16:14:42 11/16/19 24 11/17/2023 PREGN SHELBIE, INITI AL SCREE N baso (absolute) 0.0 x10e3 /uL 0.0-0. 2 Not Available [facility] ([facility]) [address] [place], [address], 11/21/2023 16:14:42 11/16/19 24 11/17/2023 PREGN SHELBIE, INITI AL SCREE N immature granulocytes 1 % notest ab. Not Available [facility] ([facility]) [address] [place], [address], 11/21/2023 16:14:42 11/16/19 24 11/17/2023 PREGN SHELBIE, INITI AL SCREE N immature grans (abs) 0.0 x10e3 /uL 0.0-0. 1 Not Available [facility] ([facility]) [address] [place], [address], 11/21/2023 16:14:42 11/16/19 24 11/17/2023 PREGN SHELBIE, INITI AL SCREE N specific gravity 1.019 1.005- 1.030 Not Available [facility] ([facility]) [address] [place], [address], 11/21/2023 16:14:42 11/16/19 24 11/17/2023 PREGN SHELBIE, INITI AL SCREE N pH 6.0 5.0-7. 5 Not Available [facility] ([facility]) [address] [place], [address], 11/21/2023 16:14:42 11/16/19 24 11/17/2023 PREGN SHELBIE, INITI AL SCREE N urine-color YELLOW yellow Not Available [facility] ([facility]) [address] [place], [address], 11/21/2023 16:14:42 11/16/19 24 11/17/2023 PREGN SHELBIE, INITI AL SCREE N appearance CLEAR clear Not Available [facility] ([facility]) [address] [place], [address], 11/21/2023 16:14:42 11/16/19 24 11/17/2023 PREGN SHELBIE, INITI AL SCREE N WBC esterase TRACE negati ve abnormal Not Available [facility] ([facility]) [address] [place], [address], 11/21/2023 16:14:42 11/16/19 24 11/17/2023 PREGN SHELBIE, INITI AL SCREE N protein NEGATI VE negati ve/tra ce Not Available [facility] ([facility]) [address] [place], [address], 11/21/2023 16:14:42 11/16/19 24 11/17/2023 PREGN SHELBIE, INITI AL SCREE N glucose NEGATI VE negati ve Not Available [facility] ([facility]) [address] [place], [address], 11/21/2023 16:14:42 11/16/19 24 11/17/2023 PREGN SHELBIE, INITI AL SCREE N ketones NEGATI VE negati ve Not Available [facility] ([facility]) [address] [place], [address], 11/21/2023 16:14:42 11/16/19 24 11/17/2023 PREGN SHELBIE, INITI AL SCREE N occult blood NEGATI VE negati ve Not Available [facility] ([facility]) [address] [place], [address], 11/21/2023 16:14:42 11/16/19 24 11/17/2023 PREGN SHELBIE, INITI AL SCREE N bilirubin NEGATI VE negati ve Not Available [facility] ([facility]) [address] [place], [address], 11/21/2023 16:14:42 11/16/19 24 11/17/2023 PREGN SHELBIE, INITI AL SCREE N urobilinogen ,semi-qn 1.0 mg/dL 0.2-1. 0 Not Available [facility] ([facility]) [address] [place], [address], 11/21/2023 16:14:42 11/16/19 24 11/17/2023 PREGN SHELBIE, INITI AL SCREE N nitrite, urine NEGATI VE negati ve Not Available [facility] ([facility]) [address] [place], [address], 11/21/2023 16:14:42 11/16/19 24 11/17/2023 PREGN SHELBIE, INITI AL SCREE N microscopic examination SEE BELOW: Micro scopi c was indic ated and was perfo rmed. Not Available [facility] ([facility]) [address] [place], [address], 11/21/2023 16:14:42 11/16/19 24 11/18/2023 PREGN SHELBIE, INITI AL SCREE N urine culture,pren atal, w/gbs FINAL REPORT Not Available [facility] ([facility]) [address] [facility] [address], [place], [address], 11/21/2023 16:14:42 11/16/19 24 11/21/2023 PREGN SHELBIE, INITI AL SCREE N chlamydia trachomatis, KETURAH NEGATI VE negati ve Not Available [facility] ([facility]) [address] [facility] [address], [place], [address], 11/21/2023 16:14:42 11/16/19 24 11/21/2023 PREGN SHELBIE, INITI AL SCREE N neisseria gonorrhoeae, KETURAH NEGATI VE negati ve Not Available [facility] ([facility]) [address] [facility] [address], [place], [address], 11/21/2023 16:14:42 11/16/19 24 11/17/2023 HSV 1 AND 2 AB, IGG hsv 1 IgG, type spec <0.91 index 0.00-0 .90 Negat alexandra <0.91 Equiv ocal 0.91 - 1.09 Posit alexandra >1.09 Note: Negat alexandra indic ates no antib odies detec lion to HSV-1 . Equiv ocal may sugge st early infec tion. If clini jovanna appro priat e, retes t at later date. Posit alexandra indic ates antib odies detec lion to HSV-1 . Not Available [facility] ([facility]) [address] [facility] [address], [place], [address], 11/21/2023 16:14:43 11/16/19 24 11/17/2023 HSV 1 AND 2 AB, IGG hsv 2 IgG, type spec <0.91 Negat alexandra <0.91 Equiv ocal 0.91 - 1.09 Posit alexandra >1.09 HSV-2 Antib jessica Inter preta tion: Curre nt guide lines and recom menda tions do not recom mend routi ne scree carlyn for HSV-2 in asymp tomat ic indiv idual s, inclu ding those that are pregn ant. A negat alexandra antib jessica resul t indic ates no detec table antib odies to HSV-2 were found . If recen t expos ure is suspe cted, retes t in 4 to 6 weeks . Equiv ocal sampl es shoul d be retes lion in 4 to 6 weeks . A posit alexandra resul t indic ates the prese nce of detec table IgG antib jessica to HSV-2 . FALSE POSIT ALEXANDRA RESUL TS MAY OCCUR . Repea t testi ng, or testi ng by a diffe rent carolo jimi, may be indic ated in some setti ngs (e.g. patie nts with low likel ihood of HSV infec tion) . If clini jovanna appro priat e, retes t 4 to 6 weeks later . HSV-2 IgG antib jessica testi ng resul ts shoul d be clini jovanna corre lated . Not Available [facility] ([facility]) [address] [place], [address], 11/21/2023 16:14:43 11/16/19 24 11/21/2023 M GENIT ALIUM KETURAH, URINE mycoplasma genitalium KETURAH NEGATI VE negati ve Not Available [facility] ([facility]) [address] [place], [address], 11/21/2023 16:14:45 11/16/19 24 11/21/2023 TRICH VAG BY KETURAH trich vag by KETURAH NEGATI VE negati ve Not Available [facility] ([facility]) [address] [place], [address], 11/21/2023 16:14:46 11/16/19 24 11/17/2023 MICRO SCOPI C EXAMI NATIO N WBC 0-5 /hpf 0-5 Not Available [facility] ([facility]) [address] [place], [address], 11/21/2023 16:14:47 11/16/19 24 11/17/2023 MICRO SCOPI C EXAMI NATIO N RBC None seen /hpf 0-2 Not Available [facility] ([facility]) [address] [facility], [place], [address], 11/21/2023 16:14:47 11/16/19 24 11/17/2023 MICRO SCOPI C EXAMI NATIO N epithelial cells (non renal) 0-10 /hpf 0-10 Not Available [facility] ([facility]) [address] [facility], [place], [address], 11/21/2023 16:14:47 11/16/19 24 11/17/2023 MICRO SCOPI C EXAMI NATIO N casts None seen /lpf nonese en Not Available [facility] ([facility]) [address] [facility] [address], [place], [address], 11/21/2023 16:14:47 11/16/19 24 11/17/2023 MICRO SCOPI C EXAMI NATIO N bacteria None seen nonese en/few Not Available [facility] ([facility]) [address] [facility] [address], [place], [address], 11/21/2023 16:14:47 11/16/19 24 11/17/2023 [id number] 9 10 DRUG- BUND amphetamines , urine NEGATI VE NG/mL cutoff =1000 Amphe tamin e test inclu sonal Amphe tamin e and Metha mphet amine . Not Available [facility] ([facility]) [address] [facility] [address], [place], [address], 11/21/2023 16:14:47 11/16/19 24 11/17/2023 [id number] 9 10 DRUG- BUND barbiturates NEGATI VE NG/mL cutoff =200 Not Available [facility] ([facility]) [address] [facility] [address], [place], [address], 11/21/2023 16:14:47 11/16/19 24 11/17/2023 [id number] 9 10 DRUG- BUND benzodiazepi duc NEGATI VE NG/mL cutoff =200 Not Available [facility] ([facility]) [address] [place], [address], 11/21/2023 16:14:47 11/16/19 24 11/17/2023 [id number] 9 10 DRUG- BUND cannabinoid NEGATI VE NG/mL cutoff =50 Not Available [facility] ([facility]) [address] [place], [address], 11/21/2023 16:14:47 11/16/19 24 11/17/2023 [id number] 9 10 DRUG- BUND cocaine (metab.) NEGATI VE NG/mL cutoff =300 Not Available [facility] ([facility]) [address] [place], [address], 11/21/2023 16:14:47 11/16/19 24 11/17/2023 [id number] 9 10 DRUG- BUND methaqualone NEGATI VE NG/mL cutoff =300 Not Available [facility] ([facility]) [address] [place], [address], 11/21/2023 16:14:47 11/16/19 24 11/17/2023 [id number] 9 10 DRUG- BUND opiates NEGATI VE NG/mL cutoff =2000 Opiat e test inclu sonal Codei ne and Morph ine only. Not Available [facility] ([facility]) [address] [place], [address], 11/21/2023 16:14:47 11/16/19 24 11/17/2023 [id number] 9 10 DRUG- BUND phencyclidin e NEGATI VE NG/mL cutoff =25 Not Available [facility] ([facility]) [address] [place], [address], 11/21/2023 16:14:47 11/16/19 24 11/17/2023 [id number] 9 10 DRUG- BUND methadone screen, urine NEGATI VE NG/mL cutoff =300 Not Available [facility] ([facility]) [address] [place], [address], 11/21/2023 16:14:47 11/16/19 24 11/17/2023 [id number] 9 10 DRUG- BUND propoxyphene , urine NEGATI VE NG/mL cutoff =300 Not Available [facility] ([facility]) [address] [place], [address], 11/21/2023 16:14:47 11/16/19 24 11/17/2023 HCG,B ETA SUBUN IT, QNT HCG,beta subunit,qnt, serum 622 mIU/m L Femal e (Non- pregn ant) 0 - 5 (Post menop ausal ) 0 - 8 Femal e (Preg nant) Weeks of Gesta tion 3 6 - 71 4 10 - 750 5 984 - 7692 6 158 - 31929 7 2717 -1518 63 8 00600 -9349 71 9 27937 -5399 10 10 27342 -7290 77 12 85371 -6144 12 14 92632 - 11457 15 68698 - 11184 16 5876 - 38691 17 0005 - 63657 18 5356 - 53368 Venancio ECLIA metho dolog y Not Available [facility] ([facility]) [address] [place], [address], 11/21/2023 16:14:48 11/16/19 24 11/19/2023 HB SOLU + RFLX FRAC hemoglobin (HGB) solubility POSITI VE negati ve abnormal Not Available [facility] ([facility]) [address] [place], [address], 11/21/2023 16:14:49 11/16/19 24 11/18/2023 RESUL T result 1 Commen t Mixed uroge nital lilia Great er than 100,0 00 colon y formi ng units per mL Not Available [facility] ([facility]) [address] [place], [address], 11/21/2023 16:14:51 11/16/19 24 11/17/2023 VARIC KINDRA- ZOSTE R V AB, IGG varicella zoster IgG 2100 index immune >165 Negat alexandra <135 Equiv ocal 135 - 165 Posit alexandra >165 A posit alexandra resul t gener ally indic ates expos ure to the patho gen or admin istra tion of speci fic immun oglob ulins , but it is not indic ation of activ e infec tion or stage of disea se. Not Available [facility] ([facility]) [address] [facility] [address], [place], [address], 11/21/2023 16:14:51 12/24/19 24 12/25/2023 HCG,B ETA SUBUN IT, QNT HCG,beta subunit,qnt, serum 8415 mIU/m L Femal e (Non- pregn ant) 0 - 5 (Post menop ausal ) 0 - 8 Femal e (Preg nant) Weeks of Gesta tion 3 6 - 71 4 10 - 750 5 217 - 7138 6 158 - 85846 7 3697 -1635 63 8 89794 -1495 71 9 57259 -1514 10 10 21247 1862 77 12 24585 -7286 12 14 25821 - 88196 15 51850 - 6644777 16 9040 97881 17 3475 - 04745 18 8029 - 77250 Venancio ECLIA metho dolog y Not Available [facility] ([facility]) [address] [facility] [address], [place], [address], 12/25/2023 16:13:14 12/26/19 24 12/27/2023 HCG,B ETA SUBUN IT, QNT HCG,beta subunit,qnt, serum 6499 mIU/m L Femal e (Non- pregn ant) 0 - 5 (Post menop ausal ) 0 - 8 Femal e (Preg nant) Weeks of Gesta tion 3 6 - 71 4 10 - 750 5 217 - 7138 6 158 - 69101 7 3697 -1635 63 8 46814 -1495 71 9 05041 -1514 10 10 36986 -1869 77 12 30628 -2106 12 14 04295 - 28305 15 49701 - 88218 16 9040 40395 17 8175 - 45100 18 8099 - 08337 Venancio ECLIA metho dolog y Not Available [facility] ([facility]) [address] [facility] [address], [place], [address], 12/27/2023 11:14:17 01/02/20 24 01/03/2024 HCG,B ETA SUBUN IT, QNT HCG,beta subunit,qnt,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 Tested BP Systolic BP Type 86 L arm 139 sitting Fetus Heart Rate Present Fetus Movement Comments Menstrual History Last Menstrual Date Menses Monthly On Bcp Conception Prior Menses Frequency Hcg Plus Date Menarche Onset Age 0410/14/2023 Genetic Screening And Infection History Question Response Note Patient's Age Will Be 35 Yea rs Or Older At Estimated Date of Delivery false Thalassemia (Yemeni, Tajik, Mediterranean, Or Background): MCV < 80 false Neural Tube Defect (Meningom yelocele, Spina Bifida, Or Anencephaly) false Congenital Heart Defect false Down Syndrome false Jl-Sachs (eg, Jain, Cajun , Somali-Welsh) false Nahun Disease false Sickle Cell Disease Or Trait () false mom's sister has trait Hemophilia Or Other Blood Disorders false Muscular Dystrophy false Cystic Fibrosis false Ephraim's Chorea false Mental Retardation/Autism true retard ation- dad's sister- also cerebral palsy If Yes, Was Person Tested For Fragile X? false unknown Other Inherited Genetic Or C hromosomal Disorder false Maternal Metabolic Disorder (eg, Type 1 Diabetes, PKU) false Patient Or Baby's Father Had A Child With Defects Not Listed Above false Recurrent Loss, Or A Stillbirth false Medications (including Suppl ements, Vitamins, Herbs, OTC Drugs), Illicit/Recreational Drugs, Alcohol true If Yes, Agent(s) And Strength/Dosage true claritin, amlodipine, vit d 50k units Any Other Genetic History false Live With Someone With TB Or Exposed To TB false Patient Or Partner Has Histo ry Of Genital Herpes false Rash Or Viral Illness Since Last Menstrual Period false History Of STD, Gonorrhea, C hlamydia, HPV, Syphilis false Other Infection History false History of HIV false History of Hepatitis false Prior GBS-infected child false Plans and Education First Trimester Discussed Date Discussion Item Discussion Note Discuss ed By 11/16/2023 Anticipated course of care deldredsmit 11/16/2023 Alcohol deldredsmit 11/16/2023 Intimate partner violence de ldredsmith 11/16/2023 Environmental/work hazards d eldredsmit 11/16/2023 Screening for aneuploidy del dredsmit 11/16/2023 Nutrition counseling ; special diet; dietary precautions (mercury, listeriosis) deldredsmit 11/16/2023 Childbirth classes/hospital facilities deldredsmith 11/16/2023 [facility] and other [facility]23 Risk factors identif ied by history [facility] 11/16/2023 Weight gain counseling [facility]/16/2023 Exercise [facility] 11/16/2023 Teratogens [facility] 11/16/2023 Use of any medicatio ns (including supplements, vitamins, herbs, or OTC drugs) [facility] 11/16/20[facility] 11/16/2023 Sexual activity [facility] 11/16/2023 Tobacco/smoking cess ation counseling (ask, advise, assess, assist, and arrange) [facility] 11/16/2023 Illicit/recreational drugs [facility] 11/16/2023 Dental care [facility] 11/16/2023 Travel [facility] 11/16/2023 Seat belt use [facility] 11/16/2023 Indications for ultrasonography [facility] 11/16/2023 Avoidance of saunas or hot tubs [facility] 11/16/2023 Toxoplasmosis precautions (cats/raw meat) [facility] Second Trimester Discussed Date Discussion Item Discussion Note Discuss ed By 11/16/2023 Selecting a care provider [facility] 11/16/[address] anning/tubal sterilization [facility] 11/16/2023 Depression screening (when indicated) [facility] 11/16/2023 [facility] 11/16/2023 Signs and symptoms of labor [facility] 11/16/2023 Intimate partner violence de ldredsmith 11/16/2023 Tobacco/smoking cess ation counseling (ask, advise, assess, assist, and arrange) [facility] Third Trimester Discussed Date Discussion Item Discussion Note Discuss ed By Delivery Information Delivery Date Delivery Type Labor Anesthesia Weeks Gestation Incision Type Labor Labor Length Hrs Delivered By Post Complications Tubal Sterilization Discharge Date Comments Discharge Information Feeding Method Contraceptive Method Maternal HG B and HCT Levels Ob Episode Information Episode Created Date Number of Fetuses Patient Bloodtype Patient rh Status Prepregnancy Weight lbs Domestic Partner Domestic Partner Phone Father Name Geriatric Social Work Professor Status 08/31/20 20 1 O Positive CLOSED Fetus Data First Name Last Name Admitted to NICU Weight (g) Sex Living Outcome Pediatric Complications Fetus ID Race Codes Race Delivery Type Madely nn Phelp s true 2404.03 78 F true Prematur e [id number] 2053- Black or Afric an Ameri can Vaginal Problems Problem Notes Quad screen declined 0 Problem Name Start Date End Date Resolution Snomed Code Not e Gestational diabetes mellitus 08/12/2020 [id number] [facility] treating. NSTs/BPPs at [facility]. IOL @ 39 wks Hirsutism [id number] Bacteriuria 03/16/2020 [id number] GBS, Tx 'd Administration of influenza vaccine 05/31/2020 [id number] Morbid obesity [id number] BMI = 43 Aaron Calculation Initial Aaron Date Initial Exam Date Initial Exam Provider Initial Ultrasound Date Last Menstrual Period Date Ultra Sound Weeks Gestation 10/29/2020 03/01/2020 03/23/2020 01/23/2020 8 Eighteen To Twenty Week Aaron Update Ultra Sound Date Fundal Height At Umbil Quickening Date Ultra Sound Latest Weeks Gestation Final Aaron Confirmed By Final Aaron Confirmed Date Final Aaron Date Ultra Sound Latest Days Gestation 0 [id number] 04/01/2020 10/30/19 21 0 Pre- Flowsheet Flowsheet Date 03/01/2020 Magallanes Score Blood Edema Fundus Height Fundus Units Glucose Ketones Leukocytes Nitrite Labor Signs Protein Cervic Dilation Cervic Effacement Cervic Station Type Weight in lbs Pre/Post Dialysis Refused BP Diastolic BP Location Tested BP Systolic BP Type Fetus Heart Rate Present Fetus Movement Comments Rx PNVs sent. Flowsheet Date 03/15/2020 Magallanes Score Blood Edema Fundus Height Fundus Units Glucose Ketones Leukocytes Nitrite Labor Signs Protein Cervic Dilation Cervic Effacement Cervic Station Type Weight in lbs Pre/Post Dialysis Refused With clothes 233.271385399846 BP Diastolic BP Location Tested BP Systolic BP Type 80 136 sitting Fetus Heart Rate Present Fetus Movement Comments folder given. Pren atal labs plus HbA1c ordered. Dating US ordered. Expected weight gain discussed, handout given. Telephone visit in 4 weeks. Flowsheet Date 04/12/2020 Magallanes Score Blood Edema Fundus Height Fundus Units Glucose Ketones Leukocytes Nitrite Labor Signs Protein Cervic Dilation Cervic Effacement Cervic Station Type Weight in lbs Pre/Post Dialysis Refused BP Diastolic BP Location Tested BP Systolic BP Type Fetus Heart Rate Present Fetus Movement Comments Telephone visit due to COVID -19 pandemic. Pt. without complaints. US c/w dates. labs reviewed, dwp. Pt. quest did not run UDS. Pt. to leave urine sample at [facility]. Order faxed. Pt. already called re GBS bacteruria and Rx at pharmacy. Telephone visit in 4 weeks, dwp. Flowsheet Date 05/10/2020 Magallanes Score Blood Edema Fundus Height Fundus Units Glucose Ketones Leukocytes Nitrite Labor Signs Protein Cervic Dilation Cervic Effacement Cervic Station Type Weight in lbs Pre/Post Dialysis Refused BP Diastolic BP Location Tested BP Systolic BP Type Fetus Heart Rate Present Fetus Movement Comments Telephone visit due to COVID -19 pandemic. Pt. doing well. RTO 3 weeks. Quad screen, flu shot, anatomy US order next visit, dwp. Flowsheet Date 05/31/2020 Magallanes Score Blood Edema Fundus Height Fundus Units Glucose Ketones Leukocytes Nitrite Labor Signs Protein Cervic Dilation Cervic Effacement Cervic Station none neg Type Weight in lbs Pre/Post Dialysis Refused With clothes 239.509281075633 BP Diastolic BP Location Tested BP Systolic BP Type 78 126 sitting Fetus Heart Rate Present A 145 Present Fetus Movement A No Comments Quad screen discussed, decli mark. Flu shot discussed, given. Anatomy US ordered. Telephone visit four weeks. Flowsheet Date 06/29/2020 Magallanes Score Blood Edema Fundus Height Fundus Units Glucose Ketones Leukocytes Nitrite Labor Signs Protein Cervic Dilation Cervic Effacement Cervic Station Type Weight in lbs Pre/Post Dialysis Refused BP Diastolic BP Location Tested BP Systolic BP Type Fetus Heart Rate Present Fetus Movement Comments Telephone visit due to COVID -19 pandemic. Pt. doing well. She had COVID 06/10/20 but did not get very sick. Continued covid precautions advised. PT. expressed understanding. RTO 5 weeks. Third trimester labs, TdaP next visit. Flowsheet Date 08/09/2020 Magallanes Score Blood Edema Fundus Height Fundus Units Glucose Ketones Leukocytes Nitrite Labor Signs Protein Cervic Dilation Cervic Effacement Cervic Station none neg Type Weight in lbs Pre/Post Dialysis Refused Weight 249.49782422390 BP Diastolic BP Location Tested BP Systolic BP Type 82 130 sitting Fetus Heart Rate Present A 140 Present Fetus Movement A Yes Comments Third trimester labs today. TdaP discussed, given. Anatomy US still incomplete and ADRIANA = low/normal. Repeat ordered. PT labor prec/kick counts discussed. RTO 2 weeks. Flowsheet Date 08/23/2020 Magallanes Score Blood Edema Fundus Height Fundus Units Glucose Ketones Leukocytes Nitrite Labor Signs Protein Cervic Dilation Cervic Effacement Cervic Station Type Weight in lbs Pre/Post Dialysis Refused Weight 247.763876987969 BP Diastolic BP Location Tested BP Systolic BP Type 80 130 sitting Fetus Heart Rate Present Fetus Movement Comments Elevated three hour GTT. Dx GDM d/w pt. Need to reduce carbohydrates discussed. ACOG handout given. Referral to [facility] generated. Pt. has not had repeat US yet. Will get one at [facility]. PT labor prec/kick counts discussed. RTO 2 weeks. Flowsheet Date 09/06/2020 Magallanes Score Blood Edema Fundus Height Fundus Units Glucose Ketones Leukocytes Nitrite Labor Signs Protein Cervic Dilation Cervic Effacement Cervic Station none neg Type Weight in lbs Pre/Post Dialysis Refused Weight 250.070851776656 BP Diastolic BP Location Tested BP Systolic BP Type 80 120 sitting Fetus Heart Rate Present A 140 Present Fetus Movement A Yes Comments Saw [facility] 09/01/20. glc QID. Say s glucose is all over the place. She has phone visit with DM nurse on 09/08/20. NSTs/BPPs weekly, dwp, ordered. PT labor prec/kick counts discussed. RTO 2 weeks. Flowsheet Date 09/27/2020 Magallanes Score Blood Edema Fundus Height Fundus Units Glucose Ketones Leukocytes Nitrite Labor Signs Protein Cervic Dilation Cervic Effacement Cervic Station Type Weight in lbs Pre/Post Dialysis Refused Weight 233.344961007476 BP Diastolic BP Location Tested BP Systolic BP Type 90 140 sitting Fetus Heart Rate Present Fetus Movement Comments Menstrual History Last Menstrual Date Menses Monthly On Bcp Conception Prior Menses Frequency Hcg Plus Date Menarche Onset Age 0701/23/2020 true false 0 14 Genetic Screening And Infection History Question Response Note Patient's Age Will Be 35 Yea rs Or Older At Estimated Date of Delivery false Thalassemia (Yemeni, Tajik, Mediterranean, Or Background): MCV < 80 false Neural Tube Defect (Meningom yelocele, Spina Bifida, Or Anencephaly) false Congenital Heart Defect false Down Syndrome false Jl-Sachs (eg, Jain, Cajun, Somali-Welsh) f alse Nahun Disease false Sickle Cell Disease Or Trait () false Hemophilia Or Other Blood Disorders false Muscular Dystrophy false Cystic Fibrosis false Ephraim's Chorea false Mental Retardation/Autism false fob si ster Other Inherited Genetic Or Chromosomal Disorder false Maternal Metabolic Disorder (eg, Type 1 Diabetes , PKU) true mob aunt has diabetes Patient Or Baby's Father Had A Child With Defects Not Listed Above false Recurrent Loss, Or A Stillbirth false Medications (including Suppl ements, Vitamins, Herbs, OTC Drugs), Illicit/Recreational Drugs, Alcohol false Any Other Genetic History false Live With Someone With TB Or Exposed To TB false Patient Or Partner Has History Of Genital Herpes false Rash Or Viral Illness Since Last Menstrual Perio d false History Of STD, Gonorrhea, Chlamydia, HPV, Syphi lis false Other Infection History false History of HIV false History of Hepatitis false Prior GBS-infected child false Delivery Information Delivery Date Delivery Type Labor Anesthesia Weeks Gestation Incision Type Labor Labor Length Hrs Delivered By Post Complications Tubal Sterilization Discharge Date Comments 1 [facility] Dr[facility] Anderson 09/19/2020 Discharge Information Feeding Method Contraceptive Method Maternal HG B and HCT Levels Breast
--- OUTSIDE RECORDS SUMMARY | 2024-09-03 13:36 | XMS_ITS | Clinical Summary ---
Author Organization [facility] Address [address] [place] [address] Phone Care Team Providers Care Excel Analyst Name Role Phone Shantel Calero MD Primary Care Provider Allergies No known active allergies Medications No known medications Active Problems Problem Noted Date Diagnosed Date PTSD (post-traumatic stress disorder) 09/13/2021 SAYDA (obstructive sleep apnea) 04/11/2018 Morbid obesity 04/11/2018 Family History Medical History Relation Name Comments No Known Problems Brother 1 No Known Problems Brother 2 No Known Problems Father Lupus Mother No Known Problems Sister 1 No Known Problems Sister 2 No Known Problems Sister 3 No Known Problems Sister 4 Relation Name Status Comments Brother 1 Alive Brother 2 Alive Father Alive Mother Alive Sister 1 Alive Sister 2 Alive Sister 3 Alive Sister 4 Alive Social History Tobacco Use Types Packs/Day Years Used Date Smoking Tobacco: Never Smokeless Tobacco: Never Tobacco Cessation:Counseling Given: Yes Alcohol Use Standard Drinks/Week Comments Yes 0 (1 standard drink = 0.6 oz pur e alcohol) 2x/wk about 2x glasses PHQ-2 Answer Date Recorded Total Score - Questions 1-9 0 08/30 Sexually Active Control Partners Comments Yes None Comments No Sex and Gender Information Value Date Recorded Sex Assigned at Not on file Legal Sex Female 11:14 PM CDT Gender Identity Not on file Sexual Orientation Not on file Last Filed Vital Signs Vital Sign Reading Time Taken Comments Blood Pressure 122/84 04/11/2018 2:36 PM CDT Pulse 83 04/11/2018 2:36 PM CDT Temperature 36.3 C (97.3 F) 04/11/2018 2:36 PM CDT Respiratory Rate 16 04/11/2018 2:36 PM CDT Oxygen Saturation 98% 04/11/2018 2:36 PM CDT Inhaled Oxygen Concentration - - Weight 104.9 kg (231 lb 4.8 oz) 04/11/2018 2:36 PM CDT Height 154.9 cm (5' 1 ) 04/11/2018 2:36 PM CDT Body Mass Index 43.7 04/11/2018 2:36 PM CDT Plan of Treatment Health Maintenance Due Date Last Done Comments Hepatitis C Virus (HCV) Screening 1997 Pap Smear 2018 Influenza Immunization (#1) 2024 12/0 07/2019, 03/20/2017, 05/25/2014, Additional history exists SARS-COV-2 Immunization ( season) 2024 10/26/2020, 10/04/2020 Respiratory Syncytial Virus (RSV) Immunization (Adult) (1 - 1-dose 75+ series) 02/06/2072 Hepatitis B Immunization Completed 998, 1997, 1997 Human Papillomavirus (HPV) Immunization Discontinued 02/16/2009, 02/28/2007 Meningococcal Immunization (ACWY) Completed 04/21/2013, 06/09/2008 DTaP/Tdap/Td Immunization Discontinued 2020, 08/17/2017, 02/28/2007, Additional history exists TdaP Immunization Completed 08/09/2020, , 02/28/2007 Pneumococcal Immunization Combined Aged Out No longer eligible based on patient's age to complete this topic Rotavirus Immunization Aged Out No lo nger eligible based on patient's age to complete this topic Goals Goal Patient Goal Type Associated Problems Recent Progress Patient-Stated? Author I don't want my daughter to have problems because of my trauma. Behavioral Health Improving( 4:17 PM CDT) Yes Odessa Quinn, TOWER CONTROL OPERATOR Note: Goal Reviewed with: patient Readiness to change: Ready to change Department associated with goal: [facility] Steps to achieve goal: will identify and verbalize how she would like her relationships with her daughter to be. will identify three ways/habits/skills she believes may have a positive impact on strengthening the relationship she has with her daughter. 3. Will attend individual and/or group therapy at least 1x/month for 8-10 sessions Trauma Behavioral Health Improving( 4:16 PM CDT) Odessa Rebolledo, ENRIQUE Note: Cheryl will gain insight regarding impact of trauma and gain relief from traumatic stress. Goal Reviewed with: patient today Readiness to change: Ready to change Department associated with goal: [facility] Steps to achieve goal: will share personal trauma story in counseling/psychotherapy sessions. will learn/identify how trauma has impacted personal life, physical health and behavioral health. will identify and practice, at least two, skills/activities/routines, to gain relief from the impact of trauma. Will attend individual or group sessions 1x/mo for at least 8-10 sessions Care Teams Excel Analyst Relationship Specialty Start Date End Date Shantel Calero MD [address] [place] [address] [address] [place] [address] PCP - General Family Medicine 04/03/17
--- OUTSIDE RECORDS SUMMARY | 2024-09-03 13:36 | XMS_ITS | Referral Summary ---
[facility] Address [address] [place] [address] Care Team Providers Care Wire Spinner Name Role Phone Bradly Davis MD Unavailable Kole Shahid MD Unavailable [phone] Ericka Lamas NP Unavailable [phone] Patrick Lopez MD Primary Care Provider + Allergies No known active allergies Medications amLODIPine (NORVASC) 10 mg tablet Take 0.5 tablets (5 mg total) by mouth daily 15 tablet 11 2 Active Additional Information Patient taking differently: 10 mgoral Daily, Reported on 05/08/2023 metFORMIN XR (GLUCOPHAGE XR) 500 mg 24 hr tabletIndicatio ns:PCOS (polycystic ovarian syndrome),Pre-d iabetes Take 1 tablet (500 mg total) by mouth daily 90 tablet 1 3 Active ergocalciferol (VITAMIN D) 50,000 unit capsuleIndicati ons:Vitamin D deficiency Take 1 capsule (50,000 Units total) by mouth once a week 4 capsule 2 3 Active amoxicillin (AMOXIL) 875 mg tablet Take 1 tablet (875 mg total) by mouth every 12 (twelve) hours for 7 days 3 Active cyclobenzaprine (FLEXERIL) 5 mg tablet 3 Active Microgestin 1/20, 21, 1-20 mg-mcg per tablet Take 1 tablet by mouth once daily 21 tablet 4 Active Active Problems Problem Noted Date Diagnosed Date Cyst of right ovary 03/26/2023 PCOS (polycystic ovarian syndrome) 11/28/2022 Assessment & Plan (05/08/2023 3:17 PM STUDENT SERVICES ADVISOR): Chronic problem, not at goal. Unfortunately she was unable to tolerate low dose metformin. She is interested now in considering control, prefers non-implantable option at this time. I sent in rx for OCP, she follows regularly with her SAFETY BELT INSTALLER and is current on her pap smear. AEs discussed. We also reviewed continued need for lifestyle modification with healthy diet and regular exercise as treatment for PCOS. We briefly discussed GLP1a (could see if her insurance covers Wegovy) but she was not interested in injectable therapy. Assessment & Plan (11/28/2022 3:36 PM CDT): Reviewed patient recent hormonal test results Highly suspect PCOS, prediabetes, insulin resistance with morbid obesity - PERES Rx -- DIET and EXERCISE - Recommend to cut back on Sugars and Processed food - learn to eat lot of fresh vegetables and fruits - portion control - lean protein and include fatty fish - cut back on red meat - advise good oral hydration ( water is your best friend ) - work on stress and good quality sleep - medication helps - to stabilize the hormones - be very physically active - include HIIT work outs 5 x weekly and also include weight training 2 x weekly - work on abdominal exercises - start Metformin XR 500 mg oral daily after a meal - do not shave the hair - go for threading or waxing , or laser treatment for hair - patient deferred to try OCPs Pre-diabetes 11/28/2022 Assessment & Plan (11/28/2022 3:35 PM CDT): Recent A1c 5.9% Counseled on diet and exercise increase start metformin XR 500 mg 1 tablet oral daily Recommend to work on healthy weight loss goal Vitamin D deficiency 11/28/2022 Assessment & Plan (11/28/2022 3:40 PM CDT): Severely low vitamin-D levels Worsening Start patient on replacement therapy Abdominal pain 12/18/2021 Morbid obesity with BMI of 40.0-44.9, adult 11/30 Assessment & Plan (11/28/2022 3:35 PM CDT): Counseled on diet and exercise Ascending cholangitis 12/18/2021 Elevated LFTs 12/17/2021 Overview (12/20/2021): Added automatically from request for surgery [id number] SAYDA (obstructive sleep apnea) 04/11/2018 Resolved Problems Problem Noted Date Diagnosed Date Resolved Date Acute cholecystitis 12/17/2021 01/06/20 Overview (12/20/2021): Added automatically from request for surgery [id number] Pre-eclampsia in third trimester 09/16/2020 11/28/2022 Gestational diabetes mellitu s (GDM), antepartum 08/31/2020 11/28/2022 Overview (10/08/2020): GCT: 183, 08/09 GTT: 96, 187, 160, 166, 08/12 Last Assessment & Plan: Accelerated AC noted two weeks ago, overall EFW: 2040g, 73%. Hyperglycemia noted with fasting glucoses. Sporadic after meal elevations. Completing testing with primary Resident Hall Director twice weekly. Strong efforts with dietary changes. [...] encouraged today, reviewed both maternal and benefits. Social History Tobacco Use Types Packs/Day Years Used Date Smoking Tobacco: Never Smokeless Tobacco: Never Tobacco Cessation:Counseling Given: Not Answered AUDIT-C Answer Date Recorded Q1: How often do you have a drink containing alc ohol? Monthly or less 12/18/2021 Average Number of Drinks Not on file 022 Frequency of Binge Drinking Not on file 11/30 Comments No Sex and Gender Information Value Date Recorded Sex Assigned at Not on file Legal Sex Female 1:32 PM STUDENT SERVICES ADVISOR Gender Identity Not on file Sexual Orientation Not on file Last Filed Vital Signs Vital Sign Reading Time Taken Comments Blood Pressure 128/70 05/08/2023 1:44 PM STUDENT SERVICES ADVISOR Pulse 93 05/08/2023 1:44 PM STUDENT SERVICES ADVISOR Temperature 36 C (96.8 F) 01/05/2022 1:04 PM CDT Respiratory Rate 12 11/28/2022 1:20 PM CDT Oxygen Saturation 96% 01/05/2022 1:04 PM CDT Inhaled Oxygen Concentration - - Weight 107.6 kg (237 lb 3.2 oz) 05/08/2023 1:44 PM STUDENT SERVICES ADVISOR Height 157.5 cm (5' 2 ) 05/08/2023 1:44 PM STUDENT SERVICES ADVISOR Body Mass Index 43.38 05/08/2023 1:44 PM STUDENT SERVICES ADVISOR Plan of Treatment Not on file Procedures Procedure Name Priority Date/Time Associated Diagnosis Comments HEPATITIS PANEL, ACUTE STAT 12/18/2021 5:00 AM CDT from Last 3 Months or Most Recently Relevant to Health Maintenance Results * Hepatitis panel, acute (12/18/2021 5:00 AM CDT) Hep A IgM Nonreactive Nonreactive ARIEL GOLDEN (JONI) Comment: Interpretive Data: If Hep A IgM Ab is reported as Equivocal, a new sample should be drawn in two weeks for testing. Current interpretive data was last revised on 19. Testing performed by: [address] [place] [address] Hep B core IgM Nonreactive Nonreactive Ton GOLDEN (JONI) Comment: Interpretive Data If HepB Core IgM Ab is reported as Equivocal, a new sample should be drawn in two weeks for testing. Current interpretive data was last revised on 19. Testing performed by: [address] [address] Hep C Ab Nonreactive Nonreactive ARIEL GOLDEN (JONI) Comment: Interpretive Data Nonreactive: Antibodies to HCV not detected. Does NOT exclude the possibility of recent exposure to HCV. Equivocal: Equivocal for HCV antibodies. Supplemental molecular testing will be automatically performed to determine infection status in accordance with current CDC screening recommendations. Reactive: Positive for HCV antibodies. This may represent current or past HCV infection. Supplemental molecular testing will be automatically performed to determine current infection status in accordance with current CDC screening recommendations. Interpretive data was last revised on 2019. Testing performed by: [facility], [address] [place] [address]., [id number] HepBsAg Nonreactive Nonreactive ARIEL GOLDEN (JONI) Comment:Testing performed by : [address] [address] Blood 12/18/2021 5:00 AM CDT 12/18/2021 1:49 PM CDT Breonna Stallings MD LAB MICROBIOLOGY - GENER AL ORDERABLES Final Result ARIEL GOLDEN (JONI) [facility] [place] [address] from Last 3 Months or Most Recently Relevant to Health Maintenance Insurance [employer] Advance Directives For more information, please contact: [phone] * Full Code (Latest Code Status on File) Date Activated Date Inactivated Comments 12/21/2021 1:48 PM 12/22/2021 7:39 PM * Full Code Date Activated Date Inactivated Comments 12/18/2021 6:27 AM 12/21/2021 1:48 PM Care Teams Wire Spinner Relationship Specialty Start Date End Date Ericka Lamas NP [address] [place] [address] [place] [address] PCP - delivery associate Nurse Practitioner 11/13/22 Patrick Lopez MD [address] [place] [address] [address] [place] [address] PCP - General Family Medicine 01/16/23 Bradly Davis MD Consulting Physician General Surgery 12/22/21 Kole Shahid MD Consulting Physician Gastroenterology 12/22/21
--- OUTSIDE RECORDS SUMMARY | 2024-09-03 13:36 | XMS_ITS | Referral Summary ---
Author Organization [facility] Address [address] [place] [address] Care Team Providers Care Assistant Manager Airside Operations Name Role Phone Unavailable Primary Care Provider Unavailabl e Source Comments [facility],non-owned Affiliates and Associated Physician Practices is amultiple site organization consisting of ambulatory clinics and hospital sitesin [place], [place], [place] and [place]. This disclosure is being madepursuant to the Care Everywhere program and may not contain all information available regarding this patient. Last updated 18.[facility] Allergies No known active allergies Medications * [...] after meal elevations. Completing testing with primary Social Services Coordinator twice weekly. Strong efforts with dietary changes. [...] benefits. Assessment & Plan (09/01/2020 12:32 PM TRAVOGRAPH OPERATOR): Accelerated AC noted today, overall EFW: 0g, [...] to seek medical evaluation. 8. Sent to [facility] for evaluation of chest pain complaints, report called to Roselyn CEVALLOS in [place]. Primary OB also alerted of patient's complaints and I talked with Peyton at Dr. Portillo office. Assessment & Plan (09/01/2020 12:44 PM TRAVOGRAPH OPERATOR): Total weight gain thus far: 12 pounds [...] 2018 Assessment & Plan (09/01/2020 12:29 PM TRAVOGRAPH OPERATOR): No treatment offered at time of diagnosis [...] - taken at 28 weeks per pt) Social History Tobacco Use Types Packs/Day Years [...] care, and heating? Not very hard 12/20/2023 [facility] [place] of Occupat ional Health - Occupational Stress [...] place to sleep or slept in a correction (including now)? No 12/20/2023 [place] Depression Scale Answer Date Recorded [place] Depression Scale Total 0 12/20/2023 The thought [...] Mass Index 45.16 12/20/2023 11:33 AM CDT Functional Status Functional Status Response Date of Assess ment Is person deaf or have serious hearing difficult y? No 09/16/2020 Is person blind or have serious difficulty seein g? No 09/16/2020 Does person have serious dif ficulty walking/climbing stairs? No 09/16/2020 Does person have difficulty dressing/bathing? No 09/16/2020 Does person have difficulty doing errands alone? No 09/16/2020 Cognitive Status Response Date of Assessm ent Does person have difficulty concentrating/remembering/making decisions? No 09/16/2020 Plan of Treatment Not on file Procedures Procedure Name Priority Date/Time Associated Diagnosis Comments HEPATITIS SCREEN ACUTE Routine 09/16/2020 8:09 AM CDT from Last 3 Months or Most Recently Relevant to Health Maintenance Results * HEPATITIS SCREEN ACUTE (09/16/2020 8:09 AM CDT) Pathologist [facility] Antibody IgM Non Reactive Non Reactive 09/16/2020 10:17 AM CDT [facility] HBsAg Non Reactive Non Reactive 09/16/2020 10:17 AM CDT [facility] HBc Antibody IgM Non Reactive Non Reactive 09/16/2020 10:17 AM CDT [facility] HCV Antibody Screen Non Reactive Non Reactive 09/16/2020 10:17 AM CDT [facility] Blood BLOOD SPECIMEN / Unknown Lab Venipuncture / Unknown 09/16/2020 8:09 AM CDT 09/16/2020 9:22 AM CDT Narrative [facility] - 09/16/2020 10:17 AM CDT Non Reactive - Antibodies to Hepatitis C virus (HCV) were not detected, result does not exclude early acute HCV infection. Jamie Leija MD LAB - CHEMISTRY [facility] Organization Address City/State/ZIP Co de Phone Number [facility] [address] [place] [address] from Last 3 Months or Most Recently [...]
--- OUTSIDE RECORDS SUMMARY | 2024-09-03 13:36 | XMS_ITS | Continuity of Care Document ---
Author Organization 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 Discussed plan. Not available 09/03/2024 12:37:39 Plan of Treatment Reminders Order Date Submit Date Provider Last Modified By Organization Details Last Modified Time Details Appointments U/S OB BASELIN E 2024 10:00A M ULTRASOUND Not available Not available Not available OB ROUTINE 2024 10:45A M Yamileth Villegas CNM Not available Not available Not available OB ROUTINE 2024 10:15A M CHAPO DAUGHERTY MD Not available Not available Not available Lab None recorde d. Referral None recorde d. Procedures None recorde d. Surgeries None recorde d. Imaging None recorde d. Medication Orders None recorde d. Patient TargetsNo targets recorded. Patient InstructionsNo instructions recorded. Reason for Referral None Reported. Results Created Date Observation Date Name Description Value Unit Range Abnormal Flag Note LastModifiedBy Organization Detail LastModifiedTime 06/11/2006/11/2024 US, obste tric, nucha l trans lucen cy No observ ation record ed. [facility] [address], [place], [address], 06/11/2024 13:11:53 06/11/20 06/11/2024 US, obste tric, nucha l trans lucen cy No observ ation record ed. [email or web address] [place] [address], [place], [address], 06/12/2024 14:13:26 08/06/19 25 08/06/2024 US, obste tric, 2nd or 3rd trime ster No observ ation record ed. [email or web address] [place] [address], [place], [address], 08/06/2024 13:26:37 08/06/19 25 08/06/2024 US, obste tric, follo w-up No observ ation record ed. [email or web address] [place] [address], [place], [address], 08/12/2024 22:27:50 09/04/19 US, obste tric, follo w-up No observ ation record ed. [email or web address] [place] [address], [place], [address], 09/03/2024 11:45:25 09/04/19 25 09/03/2024 US, obste tric, follo w-up No observ ation record ed. [email or web address] [place] [address], [place], [address], 09/03/2024 12:45:13 Result Notes None recorded. Problems Name Problem SNOMED Code Status Onset Date Resolution Date Notes Provider Name and Address Organization Details Recorded Time 35911041 Active 2023 Romi payne, [facility] 4 12:48:54 Essential hypertens ion 35656762 Active labetalol 600mg TID, 32 week testing, 37 week delivery CHAPO DAUGHERTY MD [address], [place], [address], [facility] 5 12:26:42 Prediabet es 962532423 Active A1c 6.0%, early 1h GCT at 20 weeks Failed early 1hr gtt sched 3hr gtt unable to complete 3hr gtt - Checking BS QID Myranda Lion elmer, [facility] 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 5 09:37:09 Alpha thalassem ia 89491757 Active + carrier low risk Myranda Lion null, [facility] 5 09:41:56 Alpha thalassem ia 97155474 Active + carrier low risk Myranda Lion null, [facility] 5 09:41:56 Hypertens kriss disorder 77722883 Active 2024 Valeria Rivera null, [facility] 5 12:28:09 Choroid plexus cyst 080964439 Active resolved Yamileth Villegas, [facility] [address], [place], [address], [facility] 5 12:40:02 Gestation al diabetes mellitus 02050608 Active 2024 BS QID, serial growth DT referral faxed to [facility] 08/20 DT on 08/25 Lantus pen 5u @ bedtime 08/26 increased to 8u @ HS 09/02/24 increase to 12u @ HS Myranda Lion elmer, [facility] 5 17:35:32 Gestation al diabetes mellitus 72609138 Active 2024 BS QID, serial growth DT referral faxed to [facility] 08/20 DT on 08/25 Lantus pen 5u @ bedtime 08/26 increased to 8u @ HS 09/02/24 increase to 12u @ HS Myranda payne [facility] 5 17:35:32 Body mass index 40+ - severely obese 774472008 Active BMI 45 Myranda payne [facility] 5 13:08:36 Body mass index 40+ - severely obese 279311964 Active BMI 45 Myranda payne, [facility] 5 13:08:36 Notes:Chronic Hypertension - 05/21/24 MM increased labetalol to 600mg TID Some problems listed in Document: #[id number] could not be added to this patient's chart. Please review this document and add these problems to the patient's chart manually as needed. Problem Notes None recorded. Procedures Surgical History Date Name Laterality Status Provider Name and Address Organization Details Recorded Time 03/02/20 24 extraction of wisdom tooth completed Valeria Rivera [facility] 08/06/2024 12:30:03 12/19/19 22 Cholecystectomy completed Romi Xiao [facility] 05/07/2024 16:37:13 Imaging Results None recorded. Procedure Notes None recorded. Medical Equipment None Reported. Allergies No known drug allergies Medications Name Sig Start Date Stop Date Status Note LastModified by Organization Details LastModified Time amoxicillin 500 mg capsule TAKE 1 CAPSULE BY MOUTH THREE TIMES DAILY UNTIL GONE 05/07 completed Not Available Not Available Not Available labetalol 200 mg tablet TAKE 3 TABLETS BY MOUTH THREE TIMES DAILY DIRECTED active Not Available Not Available No t Available ibuprofen 800 mg tablet TAKE 1 TABLET BY MOUTH EVERY 6 HOURS WITH FOOD 05/07 completed Not Available Not Available Not Available triazolam 0.125 mg tablet TAKE 1 TABLET BY MOUTH 1 HOUR BEFORE APPOINTME NT 05/07 completed Not Available Not Available Not Available acetaminoph en 300 mg-codeine 30 mg tablet TAKE 1 TABLET BY MOUTH EVERY 6 HOURS NEEDED FOR PAIN 05/07 completed Not Available Not Available Not Available ondansetron 8 mg disintegrat ing tablet active Not Available Not Available N ot Available OneTouch Ultra Test strips USE STRIP TO CHECK GLUCOSE 4 TIMES DAILY DIRECTED active Not Available Not Available No t Available amlodipine 10 mg tablet TAKE 1 TABLET BY MOUTH ONCE DAILY 05/07 completed Not Available Not Available Not Available ergocalcife rol (vitamin D2) 1,250 mcg (50,000 unit) capsule active Not Available Not Available Not Available Adult Aspirin 81 mg tablet active Not Available Not Available No t Available Microgestin 20 (21) 1 mg-20 mcg tablet TAKE 1 TABLET BY MOUTH ONCE DAILY 05/07 completed Not Available Not Available Not Available labetalol 09/03 completed Not Available Not Available Not Available Lantus Solostar U-100 Insulin 100 unit/mL (3 mL) subcutaneou s pen INJECT 5 UNITS SUBCUTANE OUSLY AT BEDTIME. DISCARD PEN AFTER 28 DAYS active Not Available Not Available No t Available Classic 28 mg iron-800 mcg tablet TAKE 1 TABLET BY MOUTH ONCE DAILY active Not Available Not Available No t Available One-A-Day Women's 1 active Not Available Not Available N ot Available OneTouch Ultra2 Meter USE DIRECTED active Not Available Not Available No t Available OneTouch Delica Plus Lancet 33 gauge USE DIRECTED active Not Available Not Available No t Available FreeStyle Jose Cruz [address] SENSOR AND CHANGE EVERY 15 DAYS active Not Available Not Available No t Available Vitals Date Recorded Body height Body mass index (BMI) Body weight Systolic blood pressure Diastolic blood pressure Provider Name and Address Organization Details Last Updated DateTime 09/03/2024 154.94 cm 46.9 kg/m2 059853.9 1 g 136 mm[Hg] 80 mm[Hg] Valeria Rivera [facility] 12:04:13 Social History Question Answer Notes LastModified by Organizat ion Details LastModified Time Tobacco Smoking Status Unknown If Ever Smoked Valeria Rivera [facility] 08/06/2024 12:29:37 Do You Have An Advance Directive? No [email or web address] Information not available 05/07/2024 What Is Your Level Of Alcohol Consumption? None [email or web address] Information not available 09/03/2024 If You Are , What Was Your Level Of Alcohol Consumption Prior To ? Occasional [email or web address] Information not available 08/06/2024 How Many Years Have You Consumed Alcohol? 6 [email or web address] Information not available 05/07/2024 Are You Blind Or Do You Have Difficulty Seeing? No [email or web address] Information not available 05/07/2024 What Is Your Level Of Caffeine Consumption? Moderate Information not available 05/07/2024 How Much Tobacco Do You Chew? None [email or web address] Information not available 05/07/2024 In The 14 Days Before Symptom Onset, Have You Had Close Contact With A Laboratory-confir med COVID-19 While That Case Was Ill? No [email or web address] Information not available 05/07/2024 In The 14 Days Before Symptom Onset, Have You Had Close Contact With A Person Who Is Under Investigation For COVID-19 While That Person Was Ill? No [email or web address] Information not available 05/07/2024 Have You Been To An Area Known To Be High Risk For COVID-19? No Information not available 05/07/2024 Are You Deaf Or Do You Have Serious Difficulty Hearing? No [email or web address] Information not available 05/07/2024 What Type Of Diet Are You Following? REGULAR [email or web address] Information not available 05/07/2024 What Is The Highest Grade Or Level Of School You Have Completed Or The Highest Degree You Have Received? 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 No [email or web address] Information not available 05/07/2024 Do You Use Protection During Sex? No [email or web address] Information not available 05/07/2024 Do You Use Your Seat Belt Or Car Seat Routinely? Yes [email or web address] Information not available 05/07/2024 Do You Have Smoke And Carbon Monoxide Detectors In Your Home? Yes [email or web address] Information not available 05/07/2024 How Much Tobacco Do You Smoke? No [email or web address] Information not available 05/07/2024 Do You Feel Stressed (tense, Restless, Nervous, Or Anxious, Or Unable To Sleep At Night)? [id number] [email or web address] Information not available 05/07/2024 Do You Use Any Illicit Or Recreational Drugs? No [email or web address] Information not available 05/07/2024 Do You Use Sunscreen Routinely? No [email or web address] Information not available 05/07/2024 Has Tobacco Cessation Counseling Been Provided? No [email or web address] Information not available 08/06/2024 Have You Used IV Drugs? No Information not available 05/07/2024 Do You Or Have You Ever Used Any Other Forms Of Tobacco Or Nicotine? No [email or web address] Information not available 08/06/2024 Sex: Unknown Functional Status Question Answer Note LastModified by Organizat ion Details LastModified Time Do you have difficulty walking or climbing stairs? No [email or web address] Information not available 08/06/2024 Are you able to walk? [email or web address] Information not available 05/07/2024 Are you able to care for yourself? Yes [email or web address] Information not available 08/06/2024 Do you have difficulty dressing or bathing? No [email or web address] Information not available 08/06/2024 What is your exercise level? Moderate [email or web address] Information not available 05/07/2024 Mental Status None recorded. Family History Relationship Description Onset Age of this Age Resolved Age Notes LastModified by Organization Details LastModified Time Maternal Aunt Diabetes mellitus [email or web address] Not available 2023 16:37:12 Mother High risk [email or web address] Not available 2023 16:37:49 Medical History Condition Response Allergies (Food, seasonal, environmental ) N Other N Breast Cancer N Drug/Latex Allergies/Reactions N Blood Transfusion N Lung Disease N Dermatologic Disorders N Defects or Inherited Disease Y Breast Problem N Gestational Diabetes Y Hematologic disorders N Anesthesia Complications N History of STI N Deep Vein Thrombosis N Polycystic ovary syndrome N Anxiety Disorder N Autoimmune disease Y Arthritis N Polyps N Infertility N History of abnormal pap N Acid Reflux (GERD) N Cancer N Varicosities N Stroke N Neurologic/Epilepsy N Endometriosis N High Cholesterol N Fibromyalgia N Headaches N Kidney Disease N Heart Problems N Kidney or Bladder Problems N Thyroid Problems N GI Problems N Eating Disorder N Anemia N Art (IVF or FET) N Psychiatric Illness N Ovarian Cancer N Diabetes Y Pulmonary (TB, Asthma) N Hepatitis/Liver Disease N No Past Medical History N Eczema N Urinary Tract Infection N Abuse/Domestic Violence N Asthma N Trauma/Violence N Depression/ depression N Heart Disease N Pre-Eclampsia Y Hypertension Y Osteoporosis N Thrombophilias N Gynecological History Statement/Question Response Date of Last Mammogram Date of LMP 03/16/2024 On BCP's at Conception? N Was last menstrual period normal Y STIs/STDs N Duration of Flow (days) 5 Current Control Method Age at First Child 26 Date of Last Colonoscopy Frequency of Cycle (Q days) 31 Sexually Active? Y Date of DEXA bone scan Age of first menstrual cycle 14 Date of Last Pap Smear Sexual Problems? N LMP Definite N Obstetrics History GPAL:G 3 P 0 1 1 1 Type Value Spontaneous 1 Premature 1 Living 1 Total 3 Past Encounters Encounter ID Performer Location Encounter Start Date Encounter Closed Date Diagnosis/Indication Diagnosis SNOMED-CT Code Diagnosis ICD10 Code Diagnosis Note [id number] [facility] [address],[place] [address] 08/06/2024 11:00:45 08/06/2024 12:37:01 screening for malformation 079697070 Z36.3 Z3A.20 [id number] Yamileth Villegas [facility] [address],[place] [address] 08/06/2024 11:04:02 08/06/2024 12:55:16 Gestation period, 20 weeks 00550783 Z3A.20 [id number] [facility] [address],[place] [address] 09/03/2024 11:02:57 09/03/2024 11:48:18 Gestational diabetes mellitus 71351968 O24.414 O35.8XX0 O10.012 O99.212 Z3A.24 [id number] Yamileth Villegas [facility] [address],[place] [address] 09/03/2024 11:04:18 09/03/2024 12:38:37 Gestation period, 24 weeks 784525580 Z3A.24 Type 2 lenka betes mellitus 99908441 E11.9 Chronic hy pertension complicating AND/OR reason for care during 99848706 O16.9 Health Concerns Section Related Observation LastModified by Organization Detai ls LastModified Time None Recorded Concern Status LastModified by Organization Details LastModified Time None Recorded Payers Encounter Date Sequence Insurance Name Policy Number Policy Singh Covered Member ID Singh Member ID Guarantor Name 09/03/2024 1 [facility] Cheryl Katzlps [id number] Cheryl Katzlps OBGyn Episode Ob Episode Information Episode Created Date Number of Fetuses Patient Bloodtype Patient rh Status Prepregnancy Weight lbs Domestic Partner Domestic Partner Phone Father Name Loom Fixer Status 06/11/20 24 1 O Positive 244 OPEN Fetus Data First Name Last Name Admitted to NICU Weight (g) Sex Living Outcome Pediatric Complications Fetus ID Race Codes Race Delivery Type [id number] Problems Problem Notes LVEIF Problem Name Start Date End Date Resolution Snomed Code Not e Choroid plexus cyst 221259757 resolved Gestational diabetes mellitus 08/20/2024 38890229 BS QID, serial growth DT referral faxed to [facility] 08/20DT on 08/25 Lantus pen 5u @ bedtime 08/26 increased to 8u @ HS 09/02/24 increase to 12u @ HS Body mass index 40+ - severely obese 979695525 BMI 45 Essential hypertension 8566731 0 labetalol 600mg TID, 32 week testing, 37 week delivery 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 220621265 redraw for ref lux to baby - pt discuss at OB appt Alpha thalassemia 77566137 + carrier low risk Prediabetes 095516769 A1c 6.0% , early 1h GCT at 20 weeks Failed early 1hr gtt sched 3hr gttunable to complete 3hr gtt - Checking BS QID Aaron Calculation Initial Aaron Date Initial Exam Date Initial Exam Provider Initial Ultrasound Date Last Menstrual Period Date Ultra Sound Weeks Gestation 12/21/2024 06/11/2024 05/07/2024 03/16/2024 6 Eighteen To Twenty Week Aaron Update Ultra Sound Date Fundal Height At Umbil Quickening Date Ultra Sound Latest Weeks Gestation Final Aaron Confirmed By Final Aaron Confirmed Date Final Aaron Date Ultra Sound Latest Days Gestation 0 [email or web address] 06/11/2024 12/22/19 25 0 Pre- Flowsheet Flowsheet Date 06/11/2024 Magallanes Score Blood Edema Fundus Height Fundus Units Glucose Ketones Leukocytes Nitrite Labor Signs Protein Cervic Dilation Cervic Effacement Cervic Station Type Weight in lbs Pre/Post Dialysis Refused Weight 244.655898764008 BP Diastolic BP Location Tested BP Systolic BP Type 87 L arm 133 sitting Fetus Heart Rate Present A 151 Fetus Movement Comments Patient presents to [facility] care. PMH significant for chronic HTN, well controlled on labetalol 400mg TID. Was previously on amlodipine prior to and switched to labetalol early in . Discussed baseline labs today. Plan for 32 week testing and delivery at 37 weeks. otherwise uncomplicated. No nausea or cramping. NT/NB wnl today, desires NIPT. Will draw today with new OB labs. RTC 4 weeks for routine care. Flowsheet Date 07/08/2024 Magallanes Score Blood Edema Fundus Height Fundus Units Glucose Ketones Leukocytes Nitrite Labor Signs Protein Cervic Dilation Cervic Effacement Cervic Station neg none Type Weight in lbs Pre/Post Dialysis Refused 246.103314414353 BP Diastolic BP Location Tested BP Systolic BP Type 79 L arm 122 sitting Fetus Heart Rate Present A 155 Fetus Movement A Yes Comments Patient c/o of slight upper crampings. Good movement. No cramping or bleeding. BP elevated to 140s-150s systolic at home, normotensive here. Will keep at 600 TID of labetalol, patient to bring her cuff next time to check against office cuff. Discussed early glucose next visit along with anatomy US. LR male NIPT! RTC 4 weeks. Flowsheet Date 08/06/2024 Magallanes Score Blood Edema Fundus Height Fundus Units Glucose Ketones Leukocytes Nitrite Labor Signs Protein Cervic Dilation Cervic Effacement Cervic Station Type Weight in lbs Pre/Post Dialysis Refused BP Diastolic BP Location Tested BP Systolic BP Type Fetus Heart Rate Present Fetus Movement Comments Flowsheet Date 08/06/2024 Magallanes Score Blood Edema Fundus Height Fundus Units Glucose Ketones Leukocytes Nitrite Labor Signs Protein Cervic Dilation Cervic Effacement Cervic Station neg none Type Weight in lbs Pre/Post Dialysis Refused 253.093070309902 BP Diastolic BP Location Tested BP Systolic BP Type 72 113 Fetus Heart Rate Present Fetus Movement A Yes Comments 600mg labetalol TID, doing w ell, reviewed US, LVEIF, 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, 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, taking BASA daily, precautions and education reviewed f/u 4 weeks with US, early GCT today Flowsheet Date 09/03/2024 Magallanes Score Blood Edema Fundus Height Fundus Units Glucose Ketones Leukocytes Nitrite Labor Signs Protein Cervic Dilation Cervic Effacement Cervic Station Type Weight in lbs Pre/Post Dialysis Refused BP Diastolic BP Location Tested BP Systolic BP Type Fetus Heart Rate Present Fetus Movement Comments Flowsheet Date 09/03/2024 Magallanes Score Blood Edema Fundus Height Fundus Units Glucose Ketones Leukocytes Nitrite Labor Signs Protein Cervic Dilation Cervic Effacement Cervic Station neg none Type Weight in lbs Pre/Post Dialysis Refused Weight 248.171488397291 BP Diastolic BP Location Tested BP Systolic BP Type 80 136 Fetus Heart Rate Present Fetus Movement A Yes Comments Patient trouble breathing, p ain, back pain and discharge. discussed sxs with dr. daugherty, plan stat EKG reviewed precautions, just increased insulin yesterday will have rn f/u on sunday. note given to d/c lifting over 25 lbs, plan f/u at [facility] for diabetes, lynsey is off it seems from fnger sticks under by about 20 points. f/u [address] daugherty Menstrual History Last Menstrual Date Menses Monthly On Bcp Conception Prior Menses Frequency Hcg Plus Date Menarche Onset Age 0903/16/2024 Delivery Information Delivery Date Delivery Type Labor Anesthesia Weeks Gestation Incision Type Labor Labor Length Hrs Delivered By Post Complications Tubal Sterilization Discharge Date Comments Discharge Information Feeding Method Contraceptive Method Maternal HG B and HCT Levels
--- OUTSIDE RECORDS SUMMARY | 2024-09-03 13:36 | XMS_ITS | Continuity of Care Document ---
Author Organization [facility] Address [address] [place] [address] Care Team Providers Care [employer] Caretaker Name Role Phone BENJAMÍN JOSE Primary Care Provider Assessment No assessment recorded. Plan of Treatment Reminders Order Date Submit [...] None recorde d. Imaging US, obstetr ic, follow- up 2024 03 025 [facility], [address], [address], [place], [address], 09/03/2024 13:06:13 Medication Orders None recorde d. Patient TargetsNo targets recorded. Patient InstructionsNo instructions recorded. Reason for Referral None Reported. Results Created Date Observation Date Name Description Value Unit Range Abnormal Flag Note LastModifiedBy Organization Detail LastModifiedTime 06/11/20 24 06/11/2024 US, obste tric, nucha l trans lucen cy No observ ation record ed. [facility] [address], [place], [address], 06/11/2024 13:11:53 06/11/20 24 06/11/2024 US, obste tric, nucha l trans lucen cy No observ ation record ed. [email or web address], [place], [address], 06/12/2024 14:13:26 08/06/19 25 08/06/2024 US, obste tric, 2nd or 3rd trime ster No observ ation record ed. [email or web address] [place] [address], [place], [address], 08/06/2024 13:26:37 08/06/19 25 08/06/2024 US, obste tric, follo w-up No observ ation record ed. [email or web address] [address], [place], [address], 08/12/2024 22:27:50 09/04/19 US, obste tric, follo w-up No observ ation record ed. [email or web address] [place] [address], [place], [address], 09/03/2024 11:45:25 09/04/19 25 09/03/2024 US, obste tric, follo w-up No observ ation record ed. [email or web address] [address], [place], [address], 09/03/2024 12:45:13 Result Notes None recorded. Problems Name Problem SNOMED Code Status Onset Date Resolution Date Notes Provider Name and Address Organization Details Recorded Time 06140971 Active 2023 Romi payne, [facility] 12:48:54 Essential hypertens ion 01612271 Active labetalol 600mg TID, 32 week testing, 37 week delivery CHAPO DAUGHERTY MD [address], [place], [address], [place] [facility] 5 12:26:42 Prediabet es 989137510 Active A1c 6.0%, early 1h GCT at 20 weeks Failed early 1hr gtt sched 3hr gtt unable to complete 3hr gtt - Checking BS QID Myranda Lion elmer, [facility] 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 5 09:37:09 Alpha thalassem ia 16083021 Active + carrier low risk Myranda Lion [facility], [facility] 5 09:41:56 Alpha thalassem ia 35608683 Active + carrier low risk Myranda Lion null, [facility] 5 09:41:56 Hypertens kriss disorder 72524813 Active 2024 Valeria Rivera null, [facility] 5 12:28:09 Choroid plexus cyst 040002004 Active resolved Yamileth Villegas CNM [address], [place], [address], [facility] 5 12:40:02 Gestation al diabetes mellitus 34206248 Active 2024 BS QID, serial growth DT referral faxed to [facility] 08/20 DT on 08/25 Lantus pen 5u @ bedtime 08/26 increased to 8u @ HS 09/02/24 increase to 12u @ HS Myranda Lion elmer, [facility] 5 17:35:32 Gestation al diabetes mellitus 17384434 Active 2024 BS QID, serial growth DT referral faxed to [facility] 08/20 DT on 08/25 Jesset pen 5u @ bedtime 08/26 increased to 8u @ HS 09/02/24 increase to 12u @ HS Myranda payne, [facility] 5 17:35:32 Body mass index 40+ - severely obese 225770430 Active BMI 45 Myranda payne, [facility] 5 13:08:36 Body mass index 40+ - severely obese 693121983 Active BMI 45 Myranda payne, [facility] 5 13:08:36 Notes:Chronic Hypertension - 05/21/24 MM increased labetalol to 600mg TID Some problems listed in Document: #[id number] could not be added to this patient's chart. Please review this document and add these problems to the patient's chart manually as needed. Problem Notes None recorded. Procedures Surgical History Date Name Laterality Status Provider Name and Address Organization Details Recorded Time 03/02/20 24 extraction of wisdom tooth completed Valeria Rivera [facility] 08/06/2024 12:30:03 12/19/19 22 Cholecystectomy completed Romi Xiao [facility] 05/07/2024 16:37:13 Imaging Results Imaging Date Name Status LastModified by Organiz ation Details LastModified Time 09/03/2024 US, obstetric, follow-up active [email or web address] [place] [address], [place], [address], 09/03/2024 11:45:25 Procedure Notes None recorded. Medical Equipment None [...] Available Not Available No t Available Microgestin 1/20 (21) 1 mg-20 mcg tablet TAKE 1 [...] Updated DateTime 09/03/2024 154.94 cm 46.9 kg/m2 776808.9 1 g 136 mm[Hg] 80 mm[Hg] Valeria Rivera [facility] 12:04:13 Social History Question Answer Notes LastModified by Organizat ion Details LastModified Time Tobacco Smoking Status Unknown If Ever Smoked Valeria Rivera [facility] 08/06/2024 12:29:37 Do You Have An Advance Directive? No [email or web address] Information not available 05/07/2024 What Is Your Level Of Alcohol Consumption? None Information not available 09/03/2024 If You Are , What Was Your Level Of Alcohol Consumption Prior To ? Occasional [email or web address] Information not available 08/06/2024 How Many Years Have You Consumed Alcohol? 6 [email or web address] Information not available 05/07/2024 Are You Blind Or Do You Have Difficulty Seeing? No Information not available 05/07/2024 What Is Your Level Of Caffeine Consumption? Moderate [email or web address] Information not available 05/07/2024 How Much Tobacco Do You Chew? None [email or web address] Information not available 05/07/2024 In The 14 Days Before Symptom Onset, Have You Had Close Contact With A Laboratory-confir med COVID-19 While That Case Was Ill? No [email or web address] Information not available 05/07/2024 In The 14 Days Before Symptom Onset, Have You Had Close Contact With A Person Who Is Under Investigation For COVID-19 While That Person Was Ill? No [email or web address] Information not available 05/07/2024 Have You Been To An Area Known To Be High Risk For COVID-19? No [email or web address] Information not available 05/07/2024 Are You Deaf Or Do You Have Serious Difficulty Hearing? No [email or web address] Information not available 05/07/2024 What Type Of Diet Are You Following? REGULAR [email or web address] Information not available 05/07/2024 What Is The Highest Grade Or Level Of School You Have Completed Or The Highest Degree You Have Received? 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 No [email or web address] Information not available 05/07/2024 Do You Use Protection During Sex? No Information not available 05/07/2024 Do You Use Your Seat Belt Or Car Seat Routinely? Yes [email or web address] Information not available 05/07/2024 Do You Have Smoke And Carbon Monoxide Detectors In Your Home? Yes [email or web address] Information not available 05/07/2024 How Much Tobacco Do You Smoke? No [email or web address] Information not available 05/07/2024 Do You Feel Stressed (tense, Restless, Nervous, Or Anxious, Or Unable To Sleep At Night)? [id number] [email or web address] Information not available 05/07/2024 Do You Use Any Illicit Or Recreational Drugs? No [email or web address] Information not available 05/07/2024 Do You Use Sunscreen Routinely? No [email or web address] Information not available 05/07/2024 Has Tobacco Cessation Counseling Been Provided? No [email or web address] Information not available 08/06/2024 Have You Used IV Drugs? No [email or web address] Information not available 05/07/2024 Do You Or Have You Ever Used Any Other Forms Of Tobacco Or Nicotine? No [email or web address] Information not available 08/06/2024 Sex: Unknown Functional Status Question Answer Note LastModified by Organizat ion Details LastModified Time Do you have difficulty walking or climbing stairs? No [email or web address] Information not available 08/06/2024 Are you able to walk? YESWOREST [email or web address] Information not available 05/07/2024 Are you able to care for yourself? Yes [email or web address] Information not available 08/06/2024 Do you have difficulty dressing or bathing? No [email or web address] Information not available 08/06/2024 What is your exercise level? Moderate [email or web address] Information not available 05/07/2024 Mental Status None recorded. Family History Relationship Description Onset Age of this Age Resolved Age Notes LastModified by Organization Details LastModified Time Maternal Aunt Diabetes mellitus [email or web address] Not available 2023 16:37:12 Mother High risk [email or web address] Not available 2023 16:37:49 Medical History Condition Response Allergies (Food, seasonal, environmental ) N Other N Breast Cancer N Drug/Latex Allergies/Reactions N Blood Transfusion N Dermatologic Disorders N Lung Disease N Defects or Inherited Disease Y Breast Problem N Gestational Diabetes Y Hematologic disorders N Anesthesia Complications N History of STI N Deep Vein Thrombosis N Polycystic ovary syndrome N Anxiety Disorder N Autoimmune disease Y Arthritis N Infertility N Polyps N Acid Reflux (GERD) N History of abnormal pap N Cancer N Stroke N Varicosities N Neurologic/Epilepsy N Endometriosis N High Cholesterol N Headaches N Fibromyalgia N Kidney Disease N Heart Problems N [...] SNOMED-CT Code Diagnosis ICD10 Code Diagnosis Note [id number] [place] [address],[place] [address] 08/06/2024 11:00:45 08/06/2024 12:37:01 screening for malformation 955850718 Z36.3 Z3A.20 [id number] [facility] [address] [place] [address] 08/06/2024 11:04:02 08/06/2024 12:55:16 Gestation period, 20 weeks 37030902 Z3A.20 140633 [facility] [address] [place] [address] 09/03/2024 11:02:57 09/03/2024 11:48:18 Gestational diabetes mellitus 90954052 O24.414 O35.8XX0 O10.012 O99.212 Z3A.24 633304 [facility] [address] [place] [address] 09/03/2024 11:04:18 09/03/2024 12:38:37 Gestation period, 24 weeks 126390461 Z3A.24 Type 2 lenka betes mellitus 57140271 E11.9 Chronic hy pertension complicating AND/OR reason for care during 47683958 O16.9 Health Concerns Section Related Observation LastModified by Organization Detai ls LastModified Time None Recorded Concern Status LastModified by Organization Details LastModified Time None Recorded Payers Encounter Date Sequence Insurance Name Policy Number Policy Singh Covered Member ID Singh Member ID Guarantor Name 09/03/2024 1 [facility] [employer] [id number] Cheryl Acosta OBGyn Episode Ob Episode Information Episode Created Date Number of Fetuses Patient Bloodtype Patient rh Status Prepregnancy Weight lbs Domestic Partner Domestic Partner Phone Father Name Ios Programmer Status 06/11/20 24 1 O Positive 244 OPEN Fetus Data First Name Last Name Admitted to NICU Weight (g) Sex Living Outcome Pediatric Complications Fetus ID Race Codes Race Delivery Type [id number] Problems Problem Notes LVEIF Problem Name Start Date End Date Resolution Snomed Code Not e Choroid plexus cyst 407957442 resolved Gestational diabetes mellitus 08/20/2024 58672425 BS QID, serial growth DT referral faxed to [facility] 08/20DT on 08/25 Lantus pen 5u @ bedtime 08/26 increased to 8u @ HS 09/02/24 increase to 12u @ HS Body mass index 40+ - severely obese 908559101 BMI 45 Essential hypertension 1114906 0 labetalol 600mg TID, 32 week testing, 37 week delivery 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 509022453 redraw for ref lux to baby - pt discuss at OB appt Alpha thalassemia 09675186 + carrier low risk Prediabetes 421985339 A1c 6.0% , early 1h GCT at [...] Date Ultra Sound Latest Days Gestation 0 [email or web address] 06/11/2024 12/22/19 25 0 Pre- Flowsheet Flowsheet Date 06/11/2024 Magallanes Score Blood Edema Fundus Height Fundus Units Glucose Ketones Leukocytes Nitrite Labor Signs Protein Cervic Dilation Cervic Effacement Cervic Station Type Weight in lbs Pre/Post Dialysis Refused Weight 244.332381296909 BP Diastolic BP Location Tested BP Systolic BP Type 87 L arm 133 sitting Fetus Heart Rate Present A 151 Fetus Movement Comments Patient presents to [facility] care. PMH significant for chronic HTN, [...] Type Weight in lbs Pre/Post Dialysis Refused 246.502221063586 BP Diastolic BP Location Tested BP Systolic [...] Type Weight in lbs Pre/Post Dialysis Refused 253.268133212207 BP Diastolic BP Location Tested BP Systolic BP Type 72 113 Fetus Heart Rate Present Fetus Movement A Yes Comments 600mg labetalol TID, doing w ell, reviewed US, LVEIF, unilateral card feeder, 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, taking BASA daily, [...] Weight in lbs Pre/Post Dialysis Refused Weight 248.890196703519 BP Diastolic BP Location Tested BP Systolic BP Type 80 136 Fetus Heart Rate Present Fetus Movement A Yes Comments Patient trouble breathing, p ain, back pain and discharge. discussed sxs with dr. daugherty, plan stat EKG reviewed precautions, just increased insulin yesterday will have rn f/u on sunday. note given to d/c lifting over 25 lbs, plan f/u at [facility], lynsey is off it [...]
--- OUTSIDE RECORDS SUMMARY | 2024-09-03 13:37 | XMS_ITS | Clinical Summary ---
Author Organization [facility] Address [address] [place] [address] Care Team Providers Care President Financial Institution Name Role Phone Bradly Davis MD Unavailable Kole Shahid MD Unavailable [phone] Ericka Lamas NP Unavailable [phone] Patrick Lopez MD Primary Care Provider + [...] 11/28/2022 Assessment & Plan (05/08/2023 3:17 PM VISUAL DESIGN LEAD): Chronic problem, not at goal. Unfortunately she was unable to tolerate low dose metformin. She is interested now in considering control, prefers non-implantable option at this time. I sent in rx for OCP, she follows regularly with her TRUSS BUILDER and is current on her pap smear. [...] (12/20/2021): Added automatically from request for surgery [id number] SAYDA (obstructive sleep apnea) 04/11/2018 Resolved Problems Problem Noted Date Diagnosed Date Resolved Date Acute cholecystitis 12/17/2021 01/06/20 Overview (12/20/2021): Added automatically from request for surgery [id number] Pre-eclampsia in third trimester 09/16/2020 11/28/2022 Gestational diabetes mellitu s (GDM), antepartum 08/31/2020 11/28/2022 Overview (10/08/2020): GCT: 183, 08/09 GTT: 96, 187, 160, 166, 08/12 Last Assessment & Plan: Accelerated AC noted two weeks ago, overall EFW: 2040g, 73%. Hyperglycemia noted with fasting glucoses. Sporadic after meal elevations. Completing testing with primary Pharmacy Consultant twice weekly. Strong efforts with dietary changes. [...] encouraged today, reviewed both maternal and benefits. Surgical History Surgery Date Site/Laterality Comments CHOLECYSTECTOMY 12/18/2021 Medical History Medical History Date Comments Gallstones Morbid obesity with BMI of 40.0-44.9, adult (HCC ) Vitamin D deficiency Hirsutism Pre-diabetes Elevated liver enzymes Family History Medical History Relation Name Comments Stomach cancer Maternal Grandfather Stroke Maternal Grandmother Thyroid disease Neg Hx Relation Name Status Comments Maternal Grandfather Maternal Grandmother Social History Tobacco Use Types Packs/Day Years [...] on file Legal Sex Female 1:32 PM VISUAL DESIGN LEAD Gender Identity Not on file Sexual Orientation Not on file Obstetrics History Para Term AB IAB SAB Ectopic Multiple Livin g Live Births 1 1 1 1 1 Date Outcome GA Total Labor Labor/2nd/3rd Weight Sex Type Anes PTL Clarisa A1 A5 Name Clin 2020 34w 0d 2.404 kg (5 lb 4.8 oz) F Vag-S pont Epidur al Y Livin g Yang Mandel MD Complications:None Delivery Location:[facility] Last Filed Vital Signs Vital Sign Reading Time Taken Comments Blood Pressure 128/70 05/08/2023 1:44 PM VISUAL DESIGN LEAD Pulse 93 05/08/2023 1:44 PM VISUAL DESIGN LEAD Temperature 36 C (96.8 F) 01/05/2022 1:04 PM CDT Respiratory Rate 12 11/28/2022 1:20 PM CDT Oxygen Saturation 96% 01/05/2022 1:04 PM CDT Inhaled Oxygen Concentration - - Weight 107.6 kg (237 lb 3.2 oz) 05/08/2023 1:44 PM VISUAL DESIGN LEAD Height 157.5 cm (5' 2 ) 05/08/2023 1:44 PM VISUAL DESIGN LEAD Body Mass Index 43.38 05/08/2023 1:44 PM VISUAL DESIGN LEAD Plan of Treatment Health Maintenance Due Date Last Done Comments Cervical Cancer Screening 1997 Depression Screening 1997 Varicella Vaccines (1 of 2 - 13+ 2-dose series) 06/22/2014 Regular Well Visit/Exam 18-64 2015 Covid-19 Vaccine ( season) 2024 10/26/2020, 10/04/2020 Influenza Vaccine (#1) 2024 2, 06/01/2020, 03/20/2017, Additional history exists DTaP/Tdap/Td Vaccine (9 - Td or Tdap) 08/09/2030 08/09/2020, 08/17/2017, 02/28/2007, Additional history exists Hepatitis B Screening Completed 02/02/1998 , 1997, 1997 HPV Vaccines Completed 02/16/2009, 03/2008, 02/28/2007 Hepatitis C Screening Completed 12/18/2021 Pneumococcal vaccine <65 Aged Out No longer eligible based on [...] last revised on 19. Testing performed by: [facility], [address] [place] [address]., [id number] Hep B core IgM Nonreactive Nonreactive Ton [facility] (JONI) Comment: Interpretive Data If HepB Core IgM Ab is reported as Equivocal, a new sample should be drawn in two weeks for testing. Current interpretive data was last revised on 19. Testing performed by: [facility], [address] [place] [address]., [id number] Hep C Ab Nonreactive Nonreactive [facility] ([place]ONI) Comment: Interpretive Data Nonreactive: Antibodies to [...] last revised on 2019. Testing performed by: [facility], [address] [place] [address]., [id number] HepBsAg Nonreactive Nonreactive [facility] (JONI) Comment:Testing performed by : [facility], [address] [place] [address]., [id number] Blood 12/18/2021 5:00 AM CDT 12/18/2021 1:49 PM CDT Breonna tSallings MD LAB MICROBIOLOGY - GENER AL ORDERABLES Final Result [facility] (JONI) [facility] Department of Laboratories [place], [place] [address] from Last 3 Months or Most Recently Relevant to Health Maintenance Insurance [place] [employer] [place] [employer] Advance Directives For more information, please contact: [phone] * Full Code (Latest Code Status on File) Date Activated Date Inactivated Comments 12/21/2021 1:48 PM 12/22/2021 7:39 PM * Full Code Date Activated Date Inactivated Comments 12/18/2021 6:27 AM 12/21/2021 1:48 PM Care Teams President Financial Institution Relationship Specialty Start Date End Date Ericka Lamas COSMETOLOGY TEACHER [address] [place] [address] [place] [address] 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
--- OUTSIDE RECORDS SUMMARY | 2024-09-03 13:37 | XMS_ITS | Patient Health Summary ---
Author Organization [facility] Music Messenger (MM) Address [address] 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 This disclosure is being madepursuant to the Care Everywhere program and may not contain all information available regarding this patient. Last updated 18.[facility] [employer] (MM) Allergies No known active allergies Medications * Be aware that medications may not be up to date on this document. Alwaysverify current medications with the patient. * Vit-DSS-Fe Fum-FA ( VITAMIN WITH IRON) tablet Take 1 (one) tablet by mouth once daily Reasons: * iron polysaccharides (NIFEREX 150) 150 MG capsule(Started 09/19/2020) Take 1 (one) capsule by mouth once daily * ibuprofen (MOTRIN) 600 MG tablet(Started 09/19/2020) Take 1 (one) tablet by mouth every 6 hours as needed for Pain 1 refill by 09/19/2021 * docusate sodium (COLACE) 100 MG capsule(Started 09/19/2020) Take 1 (one) capsule by mouth 2 times daily 1 refill by 09/19/2021 * amLODIPine (Norvasc) 10 MG tablet(Started 07/26/2023) Take 1 (one) tablet by mouth once daily Active Problems Problem Noted Date Diagnosed Date Pre-eclampsia in third trimester 09/16/2020 Elevated blood pressure read ing without diagnosis of hypertension 09/15/2020 Chest pain 09/15/2020 Gestational diabetes mellitus (GDM), antepartum 08/31/2020 Supervision of high-risk of young prim igravida 08/31/2020 Obesity affecting , antepartum 09/01/19 Prediabetes 07/02/2019 Irregular menses Resolved Problems Problem Noted Date Diagnosed Date Resolved Date Obesity 09/01/2020 Social History Tobacco Use Types Packs/Day Years [...] care, and heating? Not very hard 12/20/2023 [facility] - Occupational Stress [...] place to sleep or slept in a care home (including now)? No 12/20/2023 Haskins Depression Scale Answer Date Recorded Haskins Depression Scale Total 0 12/20/2023 The thought [...] Mass Index 45.16 12/20/2023 11:33 AM CDT Procedures * HCG URINE QUALITATIVE - POCT (IP) INTERFACED(Performed 12/20/2023) * SONOGRAM - TRANSVAGINAL(Performed 12/20/2023) * IMAGING/RADIOLOGY/XRAY RESULTS ORDER(Performed 09/20/2020) * COMPREHENSIVE METABOLIC PANEL(Performed 09/18/2020) * CBC W AUTO DIFFERENTIAL(Performed 09/18/2020) * GLUCOSE - POINT OF CARE(Performed 09/18/2020) * PATHOLOGY TISSUE EXAM (STL)(Performed 09/17/2020) Performed for Pre-eclampsia in third trimester (HCC) * BLOOD GASES CORD CAREN(Performed 09/17/2020) * GLUCOSE - POINT OF CARE(Performed 09/17/2020) * GLUCOSE - POINT OF CARE(Performed 09/17/2020) * GLUCOSE - POINT OF CARE(Performed 09/17/2020) * GLUCOSE - POINT OF CARE(Performed 09/17/2020) * GLUCOSE - POINT OF CARE(Performed 09/17/2020) * GLUCOSE - POINT OF CARE(Performed 09/17/2020) * GLUCOSE - POINT OF CARE(Performed 09/17/2020) * GLUCOSE - POINT OF CARE(Performed 09/17/2020) * GLUCOSE - POINT OF CARE(Performed 09/17/2020) * GLUCOSE - POINT OF CARE(Performed 09/17/2020) * GLUCOSE - POINT OF CARE(Performed 09/17/2020) * GLUCOSE - POINT OF CARE(Performed 09/17/2020) * GLUCOSE - POINT OF CARE(Performed 09/17/2020) * GLUCOSE - POINT OF CARE(Performed 09/17/2020) * GLUCOSE - POINT OF CARE(Performed 09/17/2020) * GLUCOSE - POINT OF CARE(Performed 09/17/2020) * GLUCOSE - POINT OF CARE(Performed 09/17/2020) * GLUCOSE - POINT OF CARE(Performed 09/17/2020) * GLUCOSE - POINT OF CARE(Performed 09/16/2020) * GLUCOSE - POINT OF CARE(Performed 09/16/2020) * NEURAXIAL BLOCK(Performed 09/16/2020) * GLUCOSE - POINT OF CARE(Performed 09/16/2020) * GLUCOSE - POINT OF CARE(Performed 09/16/2020) * GLUCOSE - POINT OF CARE(Performed 09/16/2020) * GLUCOSE - POINT OF CARE(Performed 09/16/2020) * GLUCOSE - POINT OF CARE(Performed 09/16/2020) * GLUCOSE - POINT OF CARE(Performed 09/16/2020) * GLUCOSE - POINT OF CARE(Performed 09/16/2020) * GLUCOSE - POINT OF CARE(Performed 09/16/2020) * GLUCOSE - POINT OF CARE(Performed 09/16/2020) * HEPATITIS SCREEN ACUTE(Performed 09/16/2020) * GLUCOSE - POINT OF CARE(Performed 09/16/2020) * COMPREHENSIVE METABOLIC PANEL(Performed 09/16/2020) Performed for Elevated blood pressure reading without diagnosis of hypertension * CBC W AUTO DIFFERENTIAL(Performed 09/16/2020) Performed for Elevated blood pressure reading without diagnosis of hypertension * TYPE + SCREEN PANEL(Performed 09/16/2020) Performed for Elevated blood pressure reading without diagnosis of hypertension * GLUCOSE - POINT OF CARE(Performed 09/15/2020) * GLUCOSE - POINT OF CARE(Performed 09/15/2020) * BLOOD TYPE VERIFICATION(Performed 09/15/2020) * LDH BLOOD(Performed 09/15/2020) * PROTEIN CREATININE RATIO URINE RANDOM PNL(Performed 09/15/2020) Performed for Elevated blood pressure reading without diagnosis of hypertension * COMPREHENSIVE METABOLIC PANEL(Performed 09/15/2020) Performed for Elevated blood pressure reading without diagnosis of hypertension * CBC W AUTO DIFFERENTIAL(Performed 09/15/2020) Performed for Elevated blood pressure reading without diagnosis of hypertension * URINE MICROSCOPIC ONLY REFLEX TO CULTURE(Performed 09/15/2020) Performed for Elevated blood pressure reading without diagnosis of hypertension * URINALYSIS REFLEX MICROSCOPIC REFLEX CULTURE(Performed 09/15/2020) Performed for Elevated blood pressure reading without diagnosis of hypertension * CULTURE URINE(Performed 09/15/2020) Performed for Elevated blood pressure reading without diagnosis of hypertension * GLUCOSE - POINT OF CARE(Performed 09/15/2020) * SONOGRAM - COMPLETE(Performed 09/01/2020) Performed for Gestational diabetes mellitus (GDM), antepartum, gestational diabetes method of control unspecified (HCC) Results * (ABNORMAL) HCG URINE QUALITATIVE - POCT (IP) INTERFACED (12/20/2023 11:54 AM CDT) HCG Qual Urine Positive(A ) Negative 12/20/2023 11:56 AM CDT [facility] Urine URINE / Unknown 12/20/2023 1 1:54 AM CDT 12/20/2023 11:56 AM CDT Christy Marx APRN-PUBLIC WORKS TECHNICIAN LAB - POINT OF CARE ORDERABLES [facility] [address] [place] [address] * SONOGRAM - TRANSVAGINAL (12/20/2023 10:44 AM CDT) Anatomical Region Laterality Modality Other 12/20/2023 10:4 4 AM CDT Narrative 12/20/2023 11:18 AM CDT [facility] PHONE: FAX: Pat. Name: CHERYL ACOSTA Pat. No: [id number] Study Date: 12/20/2023 10:44am , Age: 08 1995, 28 Height: 61 in Weight: 239 lb LMP: Unknown Referring MD: MD Hernandez, [facility] Basket Hand Braider: Samra Clinton RDMS CPT4: 14952,[id number] BMI: 45.15 Hist/Ind: Dating / Viability Iregular cycles HTN - meds Hx of Preclampsia with G1, del 34 weeks Obesity PROCEDURE, TECHNIQUE Technique: transabdominal, transvaginal MATERNAL ANATOMY Ovaries LxHxW (cm) Right 11.4 x 13.0 x 7.8 Vol: 605.3cc Desc: Contains multiple cysts Left 4.1 x 3.8 x 2.3 Vol: 18.8cc Desc: Contains a cyst Ovarian Cysts LxHxW (cm) R1: 9.8 x 7.4 x 6.6 Desc: Cyst with homogeneous internal echoes R2: 7.2 x 4.3 x 6.3 Desc: Cyst with homogeneous internal echoes L1: 1.3 x 1.2 x 1.0 Desc: Corpus Luteum CLINICAL SUMMARY TAUS and TVUS used to image the uterus. There is endometrial thickening noted. No clearly defined gestational sac is noted today though there is a small irregular echolucent area within the cavity without associated blood flow. There is no fluid in the pelvis. The right ovary was seen and contains two cysts with homogenous internal echos.. The left ovary was seen with a simple cyst consistent with a corpus luteum cyst. IMPRESSION: No overt evidence of IUP at this time Bilateral ovarian cysts, as above RECOMMEND: Clinical correlation with serum beta HCG Follow up ultrasound in 2 weeks for viability check (if HCG positive) Ovarian torsion precautions Thank you for allowing us the opportunity to take care of your patient Jonah Davila MD <Electronic Signature> 12/20/2023 11:17am Jose Eduardo Baca Josef ORDERABLES * IMAGING RADIOLOGY XRAY RESULTS ORDER (09/20/2020 12:27 PM CDT) Anatomical Region Laterality Modality Other Narrative 09/20/2020 12:27 PM CDT Ordered by an unspecified provider. Scanned Document IMAGING * (ABNORMAL) COMPREHENSIVE METABOLIC PANEL (09/18/2020 10:22 AM CDT) Only the most recent of3 resultswithin the time period is included. Glucose 162(H) 70 - 105 mg/dL 09/18/2020 11:19 AM CDT [facility] Sodium 134(L) 136 - 145 mmol/L 09/18/2020 11:19 AM CDT [facility] Potassium 3.9 3.5 - 5.1 mmol/L 09/18/2020 11:19 AM CDT [facility] Chloride 107 98 - 107 mmol/L 09/18/2020 11:19 AM CDT [facility] CO2 22(L) 23 - 31 mmol/L 09/18/2020 11:19 AM CDT [facility] Calcium 7.2(L) 8.4 - 10.4 mg/dL 09/18/2020 11:19 AM CDT [facility] Anion Gap 5(L) 8 - 18 mmol/L 09/18/2020 11:19 AM CDT [facility] Comment:Attention clinician: Reference Range change. BUN 5(L) 7 - 18.7 mg/dL 09/18/2020 11:19 AM CDT [facility] Creatinine 0.83 0.57 - 1.11 mg/dL 09/18/2020 11:19 AM CDT [facility] Alkaline Phosphatase 118 40 - 150 U/L 09/18/2020 11:19 AM CDT [facility] Comment:Attention clinician: Reference Range change. ALT 120(H) 0 - 61 U/L 09/18/2020 11:19 AM CDT [facility] AST 50(H) 5 - 34 U/L 09/18/2020 11:19 AM CDT [facility] Protein Total 5.6(L) 6.4 - 8.3 gm/dL 09/18/2020 11:19 AM CDT [facility] Albumin 2.8(L) 3.5 - 5.2 gm/dL 09/18/2020 11:19 AM CDT [facility] Bilirubin Total 0.6 0.2 - 1.2 mg/dL 09/18/2020 11:19 AM CDT [facility] Comment:Attention clinician: Reference Range change. eGFR by MDRD >60 >60 mL/min/1.7 3m2 09/18/2020 11:19 AM CDT [facility] eGFR by MDRD >60 >60 mL/min/1.7 3m2 09/18/2020 11:19 AM CDT [facility] Blood BLOOD SPECIMEN / Unknown Lab Venipuncture / Unknown 09/18/2020 10:22 AM CDT 09/18/2020 10:32 AM CDT Jamie Leija MD LAB - CHEMISTRY [facility] Organization Address City/State/[facility] Co de Phone Number [facility] [address] [place] [address] * (ABNORMAL) CBC W AUTO DIFFERENTIAL (09/18/2020 6:49 AM CDT) Only the most recent of3 resultswithin the time period is included. WBC 11.9(H) 4.4 - 10.7 x10E9/L 09/18/2020 7:19 AM CDT [facility] WBC Corrected 09/18/2020 7:19 AM CDT [facility] RBC 2.88(L) 3.80 - 5.20 x10E12/L 09/18/2020 7:19 AM CDT [facility] Hemoglobin 7.7(L) 12.0 - 15.6 gm/dL 09/18/2020 7:19 AM CDT [facility] Hematocrit 23.6(L) 35.9 - 45.5 % 09/18/2020 7:19 AM CDT [facility] MCV 81.9 80.7 - 98.3 fl 09/18/2020 7:19 AM CDT [facility] MCH 26.7 26.7 - 34.0 pg 09/18/2020 7:19 AM CDT [facility] MCHC 32.6 30.8 - 35.9 gm/dL 09/18/2020 7:19 AM CDT [facility] Platelet Count 207 153 - 416 x10E9/L 09/18/2020 7:19 AM CDT [facility] RDW-CV 12.8 12.1 - 14.9 % 09/18/2020 7:19 AM CDT [facility] MPV 11.0 9.4 - 12.9 fl 09/18/2020 7:19 AM CDT [facility] Neutrophils % 82.8(H) 44.0 - 73.0 % 09/18/2020 7:19 AM CDT [facility] Lymphocytes % 7.6(L) 20.0 - 43.0 % 09/18/2020 7:19 AM CDT [facility] Monocytes % 9.1 5.0 - 13.0 % 09/18/2020 7:19 AM CDT [facility] Eosinophils % 0.0 0.0 - 6.0 % 09/18/2020 7:19 AM CDT [facility] Basophils % 0.1 0.0 - 2.0 % 09/18/2020 7:19 AM CDT [facility] Immature Granulocytes 0.4 0 - 1 % 09/18/2020 7:19 AM CDT [facility] Neutrophil Absolute 9.82(H) 2.01 - 7.14 x10E9/L 09/18/2020 7:19 AM CDT [facility] Lymphocytes Absolute 0.90(L) 1.07 - 3.94 x10E9/L 09/18/2020 7:19 AM CDT [facility] Monocytes Absolute 1.08(H) 0.26 - 1.07 x10E9/L 09/18/2020 7:19 AM CDT [facility] Eosinophils Absolute 0.00 0 - 0.47 x10E9/L 09/18/2020 7:19 AM CDT [facility] Basophils Absolute 0.01 0 - 0.08 x10E9/L 09/18/2020 7:19 AM CDT [facility] Immature Granulocytes Absolute 0.05 0.00 - 0.06 x10E9/L 09/18/2020 7:19 AM CDT [facility] nRBC Auto 0 /100 WBC 09/18/2020 7:19 AM CDT [facility] Blood BLOOD SPECIMEN / Unknown Lab Venipuncture / Unknown 09/18/2020 6:49 AM CDT 09/18/2020 6:57 AM CDT Jamie Leija MD LAB - HEMATOLOGY ORD ERABLES Performing Organization Address [facility] Co de Phone Number [facility] [address] [place] [phone] * (ABNORMAL) GLUCOSE - POINT OF CARE (09/18/2020 6:33 AM CDT) Only the most recent of34 resultswithin the time period is included. Glucose WB/POC 116(H) 70 - 106 mg/dL 09/18/2020 6:39 AM CDT [facility] Specimen Type Arterial/C apillary 09/18/2020 6:39 AM CDT [facility] Blood BLOOD SPECIMEN / Unknown 09/18/2020 6:33 AM CDT 09/18/2020 6:39 AM CDT Jamie Leija MD LAB - POINT OF CARE ORDERABLES Performing Organization Address [facility] de Phone Number [facility] [address] [place] [phone] * PATHOLOGY TISSUE EXAM (STL) (09/17/2020 8:02 PM CDT) Case Report Surgical Pathology Report Case: [id number] Authorizing Provider: Dom Mandel MD Collected: 09/17/2020 08:02 PM Ordering Location: [facility] 5 LDR Received: 09/20/2020 07:58 AM Pathologist: Doug Jones MD Specimen: Placenta 3rd Trimester 09/21/2020 10:25 AM CDT [facility] Final Diagnosis Placenta, vaginal delivery: --Immature (34 and 0/7 gestational week age) placenta with: A) Trivascular umbilical cord negative for acute funisitis B) Placental membranes negative for meconium staining and acute chorioamnionitis C) Placental parenchyma with: 1. Negative for villitis, vasculopathy and infarcts 2. :placental ratio at the 60th% and placental weight at the 40th% of the GWA 09/21/2020 10:25 AM [facility] Clinical History This patient is a 25-year-old woman, , 34 weeks gestational DM, pre-eclampsia. 09/21/2020 10:25 AM [facility] Gross Description The requisition and specimen are identified with the patient's name and date of . Received in formalin, specimen A, placenta, is a placental disc with attached umbilical cord. The umbilical cord is inserted centrally, 5.7 cm from margin, measuring 17 cm in length and 1-1.1 cm in diameter. The cord is normally coiled and tri-vascular. The membranes are inserted marginally, and are quiros, opaque, with attached blood clot. The placental disc is 368 grams, measuring 18.5 x 14 x up to 3 cm thick. The surface is blue-quiros with normal vasculature and mild areas of fibrin around the periphery. The placental disc is disrupted, but appears complete with minimal quiros clot, but no indentation. Sectioning shows red-quiros, spongy cut surfaces. Trouble Shooting Mechanic sections submitted as follows: A1 - Umbilical cord and membrane roll A2 - Placental disc, central A3 - Placental disc, peripheral LJ/tc 09/21/2020 10:25 AM [facility] Microscopic Description Review confirms the final diagnosis. 09/21/2020 10:25 AM [facility] Disclaimer All histochemical and/or immunohistochemical results are interpreted with controls that demonstrate appropriate staining reactions before reporting results. Note on use of immunocytochemistry reagents: This test was developed and its performance characteristic determined by [facility], Department of Laboratory Medicine. It has not been cleared or approved by the U.S. Food and Drug Administration (FDA). The FDA has determined that such clearance or approval is not necessary. The test is used for clinical purpose. It should not be regarded as investigational or for research. This laboratory is certified to perform high complexity testing. The performance characteristics of the IHC/MIKIE assays have been validated on formalin-fixed paraffin embedded tissues only. The assays have not been validated on decalcified tissues. Results should be interpreted with caution. 09/21/2020 10:25 AM CDT [facility] Embedded Images 09/21/2020 10:25 AM CDT [facility] Pathology/Cytolo gy ENTIRE PLACENTA / Unknown Collection / Unknown 09/17/2020 8:02 PM CDT 09/20/2020 7:58 AM CDT Dom Mandel MD LAB - PATHOLOGY/CYTO LOGY ORDERABLES Performing Organization Address [facility] de Phone Number [facility] [address] [place] [phone] * BLOOD GASES CORD CAREN (09/17/2020 7:00 PM CDT) pH Cord Venous 7.35 7.28 - 7.40 pH 09/17/2020 7:05 PM CDT [facility] pCO2 Cord Venous 41 35 - 45 mm hg 09/17/2020 7:05 PM CDT [facility] pO2 Cord Venous 33 22 - 33 mm hg 09/17/2020 7:05 PM CDT [facility] HCO3 Cord Venous 22 22 - 24 mmol/L 09/17/2020 7:05 PM CDT [facility] Comment:L BE Cord Venous -3.1 mmol/L 09/17/2020 7:05 PM CDT [facility] O2 Saturation Cord Venous 76 % 09/17/2020 7:05 PM CDT [facility] Antonio's Test N/A 09/17/2020 7:05 PM CDT [facility] Sample Site Other 09/17/2020 7:05 PM CDT [facility] Sample Type Venous 09/17/2020 7:05 PM CDT [facility] RESP THERAPY Engine Inspector ID [id number] 09/17/2020 7:05 PM CDT [facility] Blood CORD BLOOD SPECIMEN / Unknown 09/17/2020 7:00 PM CDT 09/17/2020 7:00 PM CDT Yang Mandel MD LAB - BLOOD GASES OR DERABLES Performing Organization Address [facility] Co de Phone Number [facility] [address] [phone] * EPIDURAL BLOCK PERF (09/16/2020 10:04 PM CDT) Narrative William Fernandes APRN-CRNA - 09/16/2020 10:04 PM CDT William Fernandes APRN-CRNA 09/16/2020 10:05 PM Neuraxial Block Note Pre-Procedure: Procedure Name: Neuraxial Block Patient Location: OB Indications: at patient's request and labor analgesia Pre-Anesthetic Checklist: Patient identified, IV Checked, Risks and benefits discussed, Surgical consent verified, Monitors and equipment, Site examined, Pre-op evaluation done, Time-out performed, Informed consent obtained, Questions answered/anesthesia questions answered and Allergies reviewed Anticoagulation/ Anti-thrombosis status confirmed? Yes Monitors: BP and continuous pluse ox Patient Condition: awake Procedure: Block Type: Epidural Prep: Betadine Sterile Field: mask, cap/hat, sterile established and sterile gloves Approach: midline Skin was localized? Yes Skin localized with: lidocaine (XYLOCAINE) 1 % injection, 3 mL Epidural Block: Needle Type: Tuohy Needle gauge: 18 G Needle length: 90 mm Placement Site: L3-L4 Number of Attempts: 1 Loss of Resistance: 7 air Catheter length at skin (cm): 12 CSF Aspirated from catheter: No Blood Aspirated: No Test Dose: lidocaine 1.5% with 1-200,000 epinephrine 3 mL at 09/16/2020 10:00 PM Test Dose Response: No Epidural Infusion Medications: Ropivacaine: 0.2% with Fentanyl 2mcg/mL in NS , at 12 mL/hr Degree of difficulty: none Procedure Tolerance: tolerated well Position post procedure: left uterine displacement Vital Signs: Vital signs moniitored and stable throughout. See nursing vitals flowsheet for details. Start Time: 09/16/2020 9:56 PM End Time: 09/16/2020 10:05 PM Total Time: 9.15 Staff: Anesthesia Provider: William Fernandes APRN-CRNA - performed the procedure Additional Notes: Patient understood indications and complications of epidural placement. Patient and family in room had no further questions about epidural placement before procedure started. Patient coached through steps of epidural placement and tolerated procedure well. Good MATHEW felt and epidural placed through 18g tuohy needle without pain or parasthesia. Patient indicated test dose negative of circumoral numbness, tinnitus or increased HR/BP at time noted. Louis Jaimes MD GENERAL ANESTHESIA O RDERABLES * HEPATITIS SCREEN ACUTE (09/16/2020 8:09 AM CDT) HAV Antibody IgM Non Reactive Non Reactive 09/16/2020 10:17 AM CDT [facility] HBsAg Non Reactive Non Reactive 09/16/2020 10:17 AM CDT [facility] HBc Antibody IgM Non Reactive Non Reactive 09/16/2020 10:17 AM CDT [facility] HCV Antibody Screen Non Reactive Non Reactive 09/16/2020 10:17 AM CDT [facility] Blood BLOOD SPECIMEN / Unknown Lab Venipuncture / Unknown 09/16/2020 8:09 AM CDT 09/16/2020 9:22 AM CDT Narrative [facility] - 09/16/2020 10:17 AM CDT Non Reactive - Antibodies to Hepatitis C virus (HCV) were not detected, result does not exclude early acute HCV infection. Jamie Leija MD LAB - CHEMISTRY [place] Performing Organization Address City/[facility]/ZIP Co de Phone Number [facility] [address] [place] [address] * TYPE + SCREEN PANEL (09/16/2020 12:23 AM CDT) Pathologist [facility] ABO Rh O POS 09/16/2020 1:28 AM CDT [facility] Comment:No history; collect retype. Antibody Screen NEG 1:28 AM CDT [facility] Blood Bank BLOOD SPECIMEN / Unknown Venipuncture / Unknown 09/16/2020 12:23 AM CDT 09/16/2020 12:53 AM CDT Jamie Leija MD LAB - BLOOD BANK ORD DIEGO [facility] [address] [phone] * BLOOD TYPE VERIFICATION (09/15/2020 6:00 PM CDT) ABO Rh O POS 09/16/2020 1:2 1 AM CDT [facility] Blood Bank BLOOD SPECIMEN / Unknown Lab Venipuncture / Unknown 09/15/2020 6:00 PM CDT 09/16/2020 1:01 AM CDT Jamie Leija MD LAB - BLOOD BANK ORD ERABLES Performing Organization Address City/[facility]/ZIP Co de Phone Number [facility] [address] [place] [address] * (ABNORMAL) PROTEIN CREATININE RATIO URINE RANDOM PNL (09/15/2020 5:35 PM CDT) [facility] Protein Urine 12.6(H) <11.9 mg/dL 09/15/2020 6:36 PM CDT [facility] Creatinine Urine 86.12 mg/dL 09/15/2020 6:36 PM CDT [facility] Protein/Creatin ine Ratio Urine 0.15 09/15/2020 6:36 PM CDT [facility] Urine URINE SPECIMEN OBTAINED BY CLEAN CATCH PROCEDURE / Unknown Collection / Unknown 09/15/2020 5:35 PM CDT 09/15/2020 6:00 PM CDT Jamie Leija MD LAB - URINE CHEMISTR Y ORDERABLES Performing Organization Address City/[facility] Co de Phone Number [facility] [address] [place] [address] * (ABNORMAL) LDH BLOOD (09/15/2020 5:35 PM CDT) Pathologist [facility] LDH 287(H) 125 - 220 U/L 09/16/2020 12:45 AM CDT [facility] Blood BLOOD SPECIMEN / Unknown Venipuncture / Unknown 09/15/2020 5:35 PM CDT 09/15/2020 6:00 PM CDT Jamie Leija MD LAB - CHEMISTRY ORDE RABLES [facility] [address] [place] [address] * (ABNORMAL) URINE MICROSCOPIC ONLY REFLEX TO CULTURE (09/15/2020 5:34 PM CDT) Reflex Status Culture to follow 09/15/2020 6:18 PM CDT [facility] RBC UA 0-2 None Seen, 0-2, 3-5 # /hpf 09/15/2020 6:18 PM CDT [facility] WBC UA 6-10(A) None Seen, 0-5 # /hpf 09/15/2020 6:18 PM CDT [facility] Bacteria UA Trace(A) None Seen 09/15/2020 6:18 PM CDT [facility] Squamous Epithelial Cells 11-20(A) None Seen, 0-2, 3-5 /hpf 09/15/2020 6:18 PM CDT [facility] Mucus UA 1+ /LPF 09/15/2020 6:18 PM CDT [facility] Hyaline Casts 0-2 None Seen, 0-2 # /lpf 09/15/2020 6:18 PM CDT [facility] Urine URINE SPECIMEN OBTAINED BY CLEAN CATCH PROCEDURE / Unknown Collection / Unknown 09/15/2020 5:34 PM CDT 09/15/2020 6:00 PM CDT Narrative [facility] - 09/15/2020 6:18 PM CDT Jamie Leija MD LAB - URINALYSIS ORD ERABLES [facility] [address] [place] [address] * (ABNORMAL) URINALYSIS REFLEX MICROSCOPIC REFLEX CULTURE (09/15/2020 5:34 PM CDT) Color UA Yellow Straw, Yellow 09/15/2020 6:17 PM CDT [facility] Clarity UA Cloudy(A) Clear 09/15/2020 6:17 PM CDT [facility] Glucose UA Negative Negative 09/15/2020 6:17 PM CDT [facility] Bilirubin UA Negative Negative 09/15/2020 6:17 PM CDT [facility] Ketone UA Trace(A) Negative 09/15/2020 6:17 PM CDT [facility] Specific [place] UA 1.013 1.005 - 1.030 09/15/2020 6:17 PM CDT [facility] Blood UA Negative Negative 09/15/2020 6:17 PM CDT [facility] pH UA 6.0 5.0 - 8.0 pH 09/15/2020 6:17 PM CDT [facility] Protein UA Negative Negative 09/15/2020 6:17 PM CDT [facility] Urobilinogen UA Negative Negative mg/dL 09/15/2020 6:17 PM CDT [facility] Nitrite UA Negative Negative 09/15/2020 6:17 PM CDT [facility] Leukocyte UA Trace(A) Negative 09/15/2020 6:17 PM CDT [facility] Urine Microscopy Urine microscopy to follow 09/15/2020 6:17 PM CDT [facility] Reflex Status Culture to follow 09/15/2020 6:17 PM CDT [facility] Urine URINE SPECIMEN OBTAINED BY CLEAN CATCH PROCEDURE / Unknown Collection / Unknown 09/15/2020 5:34 PM CDT 09/15/2020 6:00 PM CDT Narrative [facility] - 09/15/2020 6:17 PM CDT Ascorbic Acid can cause false negative urine strip tests for blood, glucose, nitrite, and bilirubin. Jamie Leija MD LAB - URINALYSIS ORD ERABLES Performing Organization Address City/[facility]/ZIP Co de Phone Number [facility] [address] [place] [id number] * CULTURE URINE (09/15/2020 5:34 PM CDT) Culture Urine 10,000-50,000 CFU/mL urogenital lilia GEM 09/17/2020 6:45 AM CDT [facility] Urine URINE SPECIMEN OBTAINED BY CLEAN CATCH PROCEDURE / Unknown Collection / Unknown 09/15/2020 5:34 PM CDT 09/15/2020 6:00 PM CDT Jamie Leija MD LAB - MICROBIOLOGY O RDERABLES [facility] [address] [place] [address], [facility] [phone] * SONOGRAM - COMPLETE (09/01/2020 8:25 AM EXPERIMENTAL ELECTRONICS DEVELOPER) Anatomical Region Laterality Modality Other 09/01/2020 8:25 AM EXPERIMENTAL ELECTRONICS DEVELOPER Narrative 09/01/2020 6:07 PM EXPERIMENTAL ELECTRONICS DEVELOPER [facility] PHONE: FAX: Pat. Name: CHERYL ACOSTA Pat. No: [id number] Study Date: 09/01/2020 8:25am , Age: 10 1995, 25 Pregnancies: 1 Height: 62 in Weight: 247 lb LMP: 01/23/2020 GA by LMP: 31w5d GA by US: 31w5d GUILLE: 10/29/2020 GA Selected: 31w5d (LMP) GUILLE: 10/29/2020 Referring MD: Haven Portillo MD Basket Hand Braider: Sophie Marcial RDMS CPT4: 17735 BMI: 45.17 Hist/Ind: Class III Obesity GDM MEASUREMENTS & AGE GROWTH EVALUATION Measurement GA Range Srce %for GA Ratios ----- ---- ------- BPD 7.8 cm 31w1d (45p9z-05m2k) Hadl BPD 25% FL/BPD 0.81 (0.71 - 0.87) HC 28.3 cm 31w1d (51i8r-51z1i) Hadl HC 5% FL/AC 0.21 (0.20 - 0.24) AC 29.5 cm 33w3d (41a3b-37j3r) Hadl AC 90% HC/AC 0.96 (0.96 - 1.15) FL 6.3 cm 32w4d (11o7b-03p8l) Hadl FL 60% CI 0.78 (0.70 - 0.86) HL 5.8 cm 33w3d (56h7p-67c4j) Jett HL 79% GA for sonogram 31w5d (80w8e-15b7y) Weight Estimate: based on (BPD,HC,AC,FL) Hadlock Weight: 2040 gm (1742-2338gm) Had : 4lbs, 7oz Normal: 1892 gm (1419-2365gm) Had Wt% 73% for 31w5d Heart Rate: 167 bpm Amniotic Fluid Index: 14.9cm (08.7-24.1) Q1: 4.3cm Q2: 2.2cm Q3: 1.7cm Q4: 6.8cm EVAL, PLACENTA Heart Rate: 167 bpm MATERNAL ANATOMY Ovarian Cysts LxHxW (cm) R1: 2.5 x 2.2 x 2.4 Desc: Echogenic mass Anatomy!Normal!Abnormal!Suboptimal!Prev. Seen!Comments Cranium ! x ! ! ! ! Mdl (CSP/Thal! x ! ! ! ! Ventricles ! x ! ! ! ! Choroid Plexu! ! ! x ! ! Cerebellum ! ! ! x ! ! Cerebellar Ve! ! ! x ! ! Cisterna M. ! ! ! x ! ! Orbits ! x ! ! ! ! Profile ! x ! ! ! ! Nasal Bone ! x ! ! ! ! Lip ! ! ! x ! ! Maxilla ! x ! ! ! ! Mandible ! x ! ! ! ! Neck ! ! ! x ! ! Spine ! ! ! x ! ! Lungs ! x ! ! ! ! 4 Chamber Hea! ! ! x ! ! LVOT ! x ! ! ! ! RVOT ! x ! ! ! ! 3 Vessel View! ! ! x ! ! 3 Vessel Trac! ! ! x ! ! Cross-over ! x ! ! ! ! Ductal Arch ! ! ! x ! ! Aortic Arch ! x ! ! ! ! Caval View ! ! ! x ! ! Situs ! x ! ! ! ! Diaphragm ! x ! ! ! ! Stomach ! x ! ! ! ! Liver ! x ! ! ! ! Bowel ! x ! ! ! ! Kidneys ! x ! ! ! ! Bladder ! x ! ! ! ! 3 Vessel Cord! ! ! x ! ! Cord In! ! ! x ! ! Upper Extremi! ! ! x ! ! Hands ! ! ! x ! ! Lower Extremi! ! ! x ! ! Feet ! ! ! x ! ! External Sammi! x ! ! ! ! Placental Cor! ! ! x ! ! CLINICAL SUMMARY Study Number: 1 A single fetus is seen in N/A presentation. The measurements today are consistent with appropriate interval growth. The GUILLE is based on LMP and a prior ultrasound. The amniotic fluid volume is within normal limits. The anatomy was limited by challenging maternal acoustic properties and gestational age. 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 RECOMMEND: Ultrasound follow up in 1 month for growth, anatomy, and right ovarian tumor Thank you for allowing us they opportunity to care for your patient Khanh Huggins MD <Electronic Signature> 09/01/2020 06:06pm Ordering Provider Unlisted MD JOLANTA LOPEZ
== END 2024-09-03 12:05 | disposition home or self-care (01) ==
PROVIDERS: Visit Provider Advanced Practice Midwife
DX: R07.9 Chest pain, unspecified (principal)
CPT/HCPCS: 93005

== ENCOUNTER 2024-09-11 13:30 | Outpatient (RCR) | payer OTHER, SELFPAY | END 2024-11-10 09:28 | disposition home or self-care (01) | LOC: ANHDMC 13:30 | PROVIDERS: Visit Provider Advanced Practice Midwife | DX: O24.419 Gestational diabetes mellitus in pregnancy, unspecified control (principal); Z3A.00 Weeks of gestation of pregnancy not specified; Z71.89 Other specified counseling | CPT/HCPCS: G0108 ==

== ENCOUNTER 2024-09-27 20:07 | Outpatient (CLI) | payer OTHER, SELFPAY ==
--- OUTSIDE RECORDS SUMMARY | 2024-09-27 20:13 | XMS_ITS | Clinical Summary ---
Author Organization [facility] Address [address] [place] [address] Phone Care Team Providers Care Shift Engineer Name Role Phone Shantel Calero MD Primary [...] Comments Hepatitis C Virus (HCV) Screening 1995 Influenza Immunization (#1) 2024 12/0 07/2019, 03/20/2017, [...] Improving( 4:17 PM CDT) Yes Odessa Quinn, ACID CUTTER Note: Goal Reviewed with: patient Readiness to change: Ready to change Department associated with goal: [facility] Steps to achieve goal: [...] Health Improving( 4:16 PM CDT) Odessa Rebolledo, ACID CUTTER Note: Cheryl will gain insight regarding impact of trauma and gain relief from traumatic stress. Goal Reviewed with: patient today Readiness to change: Ready to change Department associated with goal: [facility] Steps to achieve goal: will share personal trauma story in counseling/psychotherapy sessions. will learn/identify how trauma has impacted personal life, physical health and behavioral health. will identify and practice, at least two, skills/activities/routines, to gain relief from the impact of trauma. Will attend individual or group sessions 1x/mo for at least 8-10 sessions Care Teams Shift Engineer Relationship Specialty Start Date End Date Dinesh Shantel Franklin MD [address] [place] [address] [address] [place] [address] PCP - General Family Medicine 04/03/17
--- OUTSIDE RECORDS SUMMARY | 2024-09-27 20:13 | XMS_ITS | Referral Summary ---
[facility] Organization [facility] Address [address] [place] [address] Care Team Providers Care Slab Installer Name Role Phone Bradly Davis MD Unavailable Kole Shahid MD Unavailable [phone] Ericka Lamas NP Unavailable [phone] Patrick Lopez MD Primary Care Provider + [...] 11/28/2022 Assessment & Plan (05/08/2023 3:17 PM HEAD CAGER): Chronic problem, not at goal. Unfortunately she was unable to tolerate low dose metformin. She is interested now in considering control, prefers non-implantable option at this time. I sent in rx for OCP, she follows regularly with her SUPPLY ANALYST and is current on her pap smear. [...] (12/20/2021): Added automatically from request for surgery [id number] SAYDA (obstructive sleep apnea) 04/11/2018 Resolved Problems Problem Noted Date Diagnosed Date Resolved Date Acute cholecystitis 12/17/2021 01/06/20 Overview (12/20/2021): Added automatically from request for surgery [id number] Pre-eclampsia in third trimester 09/16/2020 11/28/2022 Gestational diabetes mellitu s (GDM), antepartum 08/31/2020 11/28/2022 Overview (10/08/2020): GCT: 183, 08/09 GTT: 96, 187, 160, 166, 08/12 Last Assessment & Plan: Accelerated AC noted two weeks ago, overall EFW: 2040g, 73%. Hyperglycemia noted with fasting glucoses. Sporadic after meal elevations. Completing testing with primary Manager Internal twice weekly. Strong efforts with dietary changes. [...] on file Legal Sex Female 1:32 PM HEAD CAGER Gender Identity Not on file Sexual Orientation Not on file Last Filed Vital Signs Vital Sign Reading Time Taken Comments Blood Pressure 128/70 05/08/2023 1:44 PM HEAD CAGER Pulse 93 05/08/2023 1:44 PM HEAD CAGER Temperature 36 C (96.8 F) 01/05/2022 1:04 PM CDT Respiratory Rate 12 11/28/2022 1:20 PM CDT Oxygen Saturation 96% 01/05/2022 1:04 PM CDT Inhaled Oxygen Concentration - - Weight 107.6 kg (237 lb 3.2 oz) 05/08/2023 1:44 PM HEAD CAGER Height 157.5 cm (5' 2 ) 05/08/2023 1:44 PM HEAD CAGER Body Mass Index 43.38 05/08/2023 1:44 PM HEAD CAGER Plan of Treatment Not on file Procedures [...] last revised on 19. Testing performed by: [address] [place] [address] Hep B core IgM Nonreactive Nonreactive Ton GOLDEN (JONI) Comment: Interpretive Data If HepB Core IgM Ab is reported as Equivocal, a new sample should be drawn in two weeks for testing. Current interpretive data was last revised on 19. Testing performed by: [address] [address] Hep C Ab Nonreactive Nonreactive ARIEL GOLDEN [...] last revised on 2019. Testing performed by: [facility], [address] [place] [address]., [id number] HepBsAg Nonreactive Nonreactive ARIEL GOLDEN (JONI) Comment:Testing performed by : [address] [address] Blood 12/18/2021 5:00 AM CDT 12/18/2021 1:49 PM CDT Breonna Stallings MD LAB MICROBIOLOGY - GENER AL ORDERABLES Final Result ARIEL GOLDEN (JONI) 1 [facility] [place] [address] from Last 3 Months or Most Recently Relevant to Health Maintenance Insurance [employer] OOS [employer] OOS Advance Directives For more information, please contact: [phone] * Full Code (Latest Code Status on File) Date Activated Date Inactivated Comments 12/21/2021 1:48 PM 12/22/2021 7:39 PM * Full Code Date Activated Date Inactivated Comments 12/18/2021 6:27 AM 12/21/2021 1:48 PM Care Teams Slab Installer Relationship Specialty Start Date End Date Ericka Lamas NP [address] [place] [address] [place] [address] PCP - drug coordinator Nurse Practitioner 11/13/22 Patrick Lopez MD [address] [place] [address] [address] [place] [address] PCP - General Family Medicine 01/16/23 Bradly Davis MD Consulting Physician General Surgery 12/22/21 Kole Shahid MD Consulting Physician Gastroenterology 12/22/21
--- OUTSIDE RECORDS SUMMARY | 2024-09-27 20:13 | XMS_ITS | Clinical Summary ---
Author Organization [facility] Address [address] [place] [address] Care Team Providers Care Electric Knife Operator Name Role Phone Bradly Davis MD Unavailable Kole Shahid MD Unavailable [phone] Ericka Lamas NP Unavailable [phone] Patrick Lopez MD Primary Care Provider + [...] 11/28/2022 Assessment & Plan (05/08/2023 3:17 PM CHILD SUPPORT OFFICER): Chronic problem, not at goal. Unfortunately she was unable to tolerate low dose metformin. She is interested now in considering control, prefers non-implantable option at this time. I sent in rx for OCP, she follows regularly with her HAND I BLOCKER and is current on her pap smear. [...] (12/20/2021): Added automatically from request for surgery [id number] SAYDA (obstructive sleep apnea) 04/11/2018 Resolved Problems Problem Noted Date Diagnosed Date Resolved Date Acute cholecystitis 12/17/2021 01/06/20 Overview (12/20/2021): Added automatically from request for surgery [id number] Pre-eclampsia in third trimester 09/16/2020 11/28/2022 Gestational diabetes mellitu s (GDM), antepartum 08/31/2020 11/28/2022 Overview (10/08/2020): GCT: 183, 08/09 GTT: 96, 187, 160, 166, 08/12 Last Assessment & Plan: Accelerated AC noted two weeks ago, overall EFW: 2040g, 73%. Hyperglycemia noted with fasting glucoses. Sporadic after meal elevations. Completing testing with primary Linseed Oil Boiler twice weekly. Strong efforts with dietary changes. [...] on file Legal Sex Female 1:32 PM CHILD SUPPORT OFFICER Gender Identity Not on file Sexual Orientation [...] Livin g Yang Mandel MD Complications:None Delivery Location:[facility] Last Filed Vital Signs Vital Sign Reading Time Taken Comments Blood Pressure 128/70 05/08/2023 1:44 PM CHILD SUPPORT OFFICER Pulse 93 05/08/2023 1:44 PM CHILD SUPPORT OFFICER Temperature 36 C (96.8 F) 01/05/2022 1:04 PM CDT Respiratory Rate 12 11/28/2022 1:20 PM CDT Oxygen Saturation 96% 01/05/2022 1:04 PM CDT Inhaled Oxygen Concentration - - Weight 107.6 kg (237 lb 3.2 oz) 05/08/2023 1:44 PM CHILD SUPPORT OFFICER Height 157.5 cm (5' 2 ) 05/08/2023 1:44 PM CHILD SUPPORT OFFICER Body Mass Index 43.38 05/08/2023 1:44 PM CHILD SUPPORT OFFICER Plan of Treatment Health Maintenance Due Date [...] last revised on 19. Testing performed by: [facility], [address] [place] [address]., [id number] Hep B core IgM Nonreactive Nonreactive Ton [facility] (JONI) Comment: Interpretive Data If HepB Core IgM Ab is reported as Equivocal, a new sample should be drawn in two weeks for testing. Current interpretive data was last revised on 19. Testing performed by: [facility], [address] [place] [address]., [id number] Hep C Ab Nonreactive Nonreactive ARIEL [facility] (JONI) Comment: Interpretive Data Nonreactive: Antibodies [...] last revised on 2019. Testing performed by: [facility], [address] [place] [address]., [address] HepBsAg Nonreactive Nonreactive ARIEL GOLDEN (JONI) Comment:Testing performed by : [facility], [address] [place] [address]., [address] Blood 12/18/2021 5:00 AM CDT 12/18/2021 1:49 PM CDT Breonna Stallings MD LAB MICROBIOLOGY - GENER AL ORDERABLES Final Result ARIEL GOLDEN (JONI) 1 [facility] Department of Laboratories [place], [place] [id number] from Last 3 Months or Most Recently Relevant to Health Maintenance Insurance [employer] OOS [employer] Advance Directives For more information, please contact: [phone] * Full Code (Latest Code Status on File) Date Activated Date Inactivated Comments 12/21/2021 1:48 PM 12/22/2021 7:39 PM * Full Code Date Activated Date Inactivated Comments 12/18/2021 6:27 AM 12/21/2021 1:48 PM Care Teams Electric Knife Operator Relationship Specialty Start Date End Date Ericka Lamas RETIREMENT PLAN COUNSELOR [address] [place] [address] [place] [address] PCP - brim pouncer machine operator Nurse Practitioner 11/13/22 Patrick Lopez MD [address] [place] [address] [address] [facility] [place] [address] PCP - General Family Medicine 01/16/23 Bradly Davis MD Consulting Physician General Surgery 12/22/21 Kole Shahid MD Consulting Physician Gastroenterology 12/22/21
--- OUTSIDE RECORDS SUMMARY | 2024-09-27 20:13 | XMS_ITS | Clinical Summary ---
Author Organization [facility] Address [address] [place] [address] Phone Care Team Providers Care Addiction Professional Name Role Phone Unavailable Primary Care Provider Unavailabl e Medications Insulin Fifty Six, Disposable, (BD Sarah 2nd Gen Pen Needle) 32 gauge x 5/32 NeedleIndication s:Insulin controlled gestational diabetes mellitus (GDM) during , antepartum Use 4 pen needles per day with insulin injection 100 Each 6 5 Active insulin lispro (HumaLOG KwikPen Insulin) 100 unit/mL pen syringeIndicatio ns:Insulin controlled gestational diabetes mellitus (GDM) during , antepartum Inject 6U SQ before breakfast, lunch and dinner. Max dose of 50U/day 15 mL 6 5 Active Additional Information Patient taking differently: Inject 6U SQ before breakfast,12U SQ before lunch and 8U SQ before dinner. Max dose of 50U/day, Reported on 09/22/2024 insulin glargine (Lantus Solostar U-100 Insulin) 100 unit/mL pen syringeIndicatio ns:Insulin controlled gestational diabetes mellitus (GDM) during , antepartum Inject 18 units SQ qHS. Max dose 50U/day 15 mL 6 5 Active Additional Information Patient taking differently: Inject 20 units SQ qHS. Max dose 50U/day, Reported on 09/22/2024 Encounters Date Type Department Care Team Description 09/22/2024 Abstract [facility] M[facility] and Medicine - [facility] [place] [facility] [address] [place] [address] 09/22/2024 Chart Note [facility] - [facility] [place] [facility] [address] [place] [address] Sylvia Parnell MD Gestational Diabetes 09/17/2024 External Device Data ST[facility] ABSTRACTION Provider, Abstract 09/17/2024 External Device Data [facility] ABSTRACTION Provider, Abstract 09/16/2024 External Device Data [facility] ABSTRACTION Provider, Abstract 09/15/2024 Chart Note [facility] and Medicine - Medical [place] [facility] [address] [place] [phone] Lacey Hill MD Gestational Diabetes 09/12/2024 Chart Note [facility] and Medicine - Medical [place] [facility] [address] [place] [address] Sylvia Parnell MD Gestational Diabetes 09/11/2024 9:15 AM CDT - 09/11/2024 11:59 PM CDT Hospital Encounter [facility] [address] [place] [address] Yamileth Villegas NP Discharge Disposition: Home or Self Care 09/09/2024 Telephone [facility] Maternal Medicine [address] [place] [address] José Iqbal MD Diabetes 09/05/2024 Chart Note [facility] and Medicine - Medical [place] [facility] [address] [place] [address] Sylvia Parnell MD Gestational Diabetes 09/05/2024 Orders Only [facility] Maternal Medicine [address] [place] [address] Sylvia Parnell MD GDM, class A1 (Primary Dx) 09/04/2024 Abstract [facility] Maternal and Medicine - [facility] [address] [place] [address] Erin Diaz RN 09/04/2024 Orders Only [facility] M[facility] and Ground [facility] [address] [place] [address] Yamileth Villegas NP Chronic hypertension in (Primary Dx); Gestational diabetes mellitus (GDM), antepartum, gestational diabetes method of control unspecified from Last 3 Months Social History Tobacco Use Types Packs/Day Years Used Date Smoking Tobacco: Never Assessed Estimated Date of Delivery Comme nts Yes 12/21/2024 Sex and Gender Information Value Date Recorded Sex Assigned at Not on file Legal Sex Female 7:31 AM [employer] Gender Identity Not on file Sexual Orientation Not on file Plan of Treatment Upcoming Encounters Date Type Department Care Team (Late st Contact Info) Description 10/07/2024 1:00 PM CDT Initial [facility] and [facility] - [facility] [place] [facility] [address], [place] [address] 10/07/2024 3:15 PM CDT Appointment [facility] Maternal and Ground Floor [address] [facility] [address] [place] [address] Khanh Arcos MD [address] [place] [address] Health Maintenance Due Date Last Done Comments DTAP/TDAP/TD VACCINES (1 - Tdap) 02/06/2016 HEPATITIS B VACCINES (1 of 3 - 19+ 3-dose series) 02/06/2016 CERVICAL CANCER SCREENING 2018 HPV/Cotest (21-29) 2018 PAP SMEAR 2018 INFLUENZA VACCINE (#1) 2024 HPV VACCINES Aged Out No longer eligi ble based on patient's age to complete this topic RSV VACCINE (60+ or ) (No Doses Required) Completed Procedures Procedure Name Priority Date/Time Associated Diagnosis Comments US OB DETAIL SINGLE GEST Routine 09/11/2024 10:30 AM CDT Chronic hypertension affecting screening for malformation using ultrasonics from Last 3 Months Results * US OB DETAIL SINGLE GEST (09/11/2024 10:30 AM CDT) Anatomical Region Laterality Modality Pelvis Ultrasound 09/11/2024 9:26 AM CDT Narrative 09/11/2024 10:38 AM CDT STL COMP ----- Pat. Name: CHERYL ABBOTT Study Date: 09/11/2024 9:26am Pat. NO: [id number] Referring MD: Site: [place] Supervisor [employer]: Amanda Farmer RDMS : 1995 Age: 29 ----- INDICATION ----- Anatomy Survey Low risk NIPT Maternal Obesity (BMI>40) Complicating Chronic Hypertension (HTN) CODING ----- Diagnoses Z3A.25: Weeks of gestation O10.012: Pre-existing essential hypertension complicating O99.212: Obesity complicating Z36.3: Encounter for screening for malformations Procedures 88483: Ultrasound, uterus, real time with image documentation, and maternal evaluation plus detailed anatomic examination, transabdominal approach HISTORY ----- OB History 1 MATERNAL ASSESSMENT ----- Physical Exam Initial weight 112 kg, 248 lb. Initial BMI 45.36 kg/m METHOD ----- Transabdominal ultrasound examination ----- Patiño . Number of fetuses: 1 DATING ----- Method of dating: based on stated GUILLE GA by prior assessment 25 w + 4 d GUILLE by prior assessment: 12/21/2024 Ultrasound examination on: 09/11/2024 GA by U/S based upon: AC, BPD, EFW, Femur, HC GA by U/S 25 w + 5 d GUILLE by U/S: 12/20/2024 Assigned: based on stated GUILLE, selected on 09/11/2024 Assigned GA 25 w + 4 d Assigned GUILLE: 12/21/2024 BIOMETRY ----- BPD 65.5 mm 26w 3d 71% Hadlock OFD 85.4 mm 27w 4d 95% Valdemar HC 242.4 mm 26w 2d 54% Hadlock Cerebellum tr 28.9 mm 26w 5d 58% Chow Nuchal fold 5.1 mm AC 213.7 mm 25w 6d 51% Hadlock Femur 44.3 mm 24w 4d 12% Hadlock Humerus 44.8 mm 26w 4d 75% Valdemar HC / AC 1.13 55% Nicolaides Weight Calculation: EFW 816 g 25w 2d 36% Hadlock EFW (lb,oz) 1 lb 13 oz EFW by Hadlock ([id number]) Head / Face / Neck Biometry: Sustainability Project Coordinator 4.3 mm CM 5.3 mm 22% Nicolaides Inner IOD 18.5 mm Nasal 8.7 mm bone Extremities / Bony Struc Biometry: FL / BPD 0.68 FL / HC 0.18 FL / AC 0.21 Tibia 40.1 mm 25w 2d 37% Valdemar GENERAL EVALUATION ----- Cardiac activity present. FHR 151 bpm. movements: present. Presentation: breech Placenta: Placental site: left lateral Umbilical cord: Cord vessels: 3 vessel cord. Insertion site: placental insertion: normal Amniotic fluid: Amount of AF: normal amount. MVP 5.1 cm ANATOMY ----- The following structures appear normal: Head / Neck Cranium. Lateral ventricles. Choroid plexus. Midline falx. Cavum septi pellucidi. Cerebellum. Cisterna magna. Thalami. Nuchal fold. Face Lips. Profile. Nose. Orbits. Heart / Thorax 4-chamber view. RVOT view. LVOT view. 3-vessel view. 5-epseku-uquyalb view. Situs. Ductal arch view. Superior vena cava. Inferior vena cava. High short axis view. Cardiac rhythm. Diaphragm. Abdomen Abdominal wall. Cord insertion. Stomach. Kidneys. Bladder. Genitals. Spine Cervical spine. Thoracic spine. Lumbar spine. Extremities / Arms. Right hand. Left hand. Legs. Left foot. Skeleton The following structures could not be adequately visualized: Face Palate. Heart / Thorax Aortic arch view. Spine Sacral spine. Extremities / Right foot. Skeleton sex: male. MATERNAL STRUCTURES ----- Cervix Visualized Approach - Transabdominal Right Ovary Visualized Size 61 mm x 65 mm x 49 mm. Vol 99.7 cm Cyst(s) Size 61 mm x 48 mm x 64 mm. Mean 57.7 mm. Vol 98.118 cm Left Ovary Suboptimal GROWTH OVERVIEW ----- Exam date GA BPD (mm) HC (mm) AC (mm) FL (mm) HL (mm) EFW (g) 09/11/2024 25w 4d 65.5 71% 242.4 54% 213.7 51% 44.3 12% 44.8 75% 816 36% COMMENT ----- Patient's name and date of were verified by the facility specialist before the exam IMPRESSION ----- Summary of Findings: A detailed anatomic survey was performed. Ultrasound was used to both evaluate structural abnormalities and to evaluate more subtle features of the face and extremities that could indicate aneuploidy. Detailed anatomic survey was performed due to maternal obesity and chronic hypertension. 1. Single living fetus with gestational age of 25w 4d, (GUILLE = 12/21/2024), based on the reported clinical dates. 2. Detailed anatomic survey is incomplete due to maternal acoustics and position. No structural abnormalities are identified. Palate, right foot, sacral spine and AA suboptimal. 3. The amniotic fluid volume is normal with maximum vertical pocket of 5.1 cm. 4. Estimated weight is 816 g (36%ile). 5. Placenta is left lateral; no previa. Normal cord insert. 6. Right ovary noted with homogeneous cyst with internal echoes measuring 4.71 cm x 5.65 cm x 3.99 cm. Patient's records demonstrate history of possible dermoid in right ovary since [address] scan. The presence of a normal anatomic survey does not rule out genetic, chromosomal or structural anomalies. Recommendation: - Follow up ultrasound for growth and completion of anatomic views in 4 weeks. Thank you for inviting us to participate in your patient's care. Procedure Note Jennifer Guerra MD - 09/11/2024 STL COMP ----- Pat. Name:aJel ABBOTT Date:09/11/2024 9:26am Pat. NO: [id number] : [facility]Amanda Farmer RDMS :1995Age:29 ----- INDICATION ----- Anatomy Survey Low risk NIPT Maternal Obesity (BMI>40) Complicating Chronic Hypertension (HTN) CODING ----- Diagnoses Z3A.25: Weeks of gestation O10.012: Pre-existing essential hypertensioncomplicating O99.212: Obesity complicating Z36.3: Encounter for screening formalformations Procedures [id number]: Ultrasound, uterus, real time withimage documentation, and maternal evaluation plus detailed anatomic examination,transabdominal approach HISTORY ----- OB History 1 MATERNAL ASSESSMENT ----- Physical Exam Initial weight 112 kg, 248 lb. Initial BMI 45.36kg/m METHOD ----- Transabdominal ultrasound examination ----- Patiño . Number of fetuses: 1 DATING ----- Method of dating:based on stated GUILLE GA by prior cpifetfsyp14 w + 4 d GUILLE by prior assessment:12/21/2024 Ultrasound examination on:09/11/2024 GA by U/S based upon:AC, BPD, EFW, Femur, HC GA by U/S25 w + 5 d GUILLE by U/S:12/20/2024 Assigned:based on stated GUILLE, selected on 09/11/2024 Assigned GA25 w + 4 d Assigned GUILLE:12/21/2024 BIOMETRY ----- BPD 65.5 mm 26w 3d71% Hadlock OFD 85.4 mm 27w 4d95% Valdemar HC 242.4 mm 26w 2d54% Hadlock Cerebellum tr 28.9 mm 26w 5d58% Chow Nuchal fold 5.1 mm AC 213.7 mm 25w 6d51% Hadlock Femur 44.3 mm 24w 4d12% Hadlock Humerus 44.8 mm 26w 4d75% Valdemar HC / AC 1.13 55%Beatriz Weight Calculation: EFW 816 g 25w 2d 36%Hadlock EFW (lb,oz) 1 lb 13 oz EFW by Hadlock ([id number]) Head / Face / Neck Biometry: Sustainability Project Coordinator 4.3 mm CM 5.3 mm 22%Nicosteffanieides Inner IOD 18.5 mm Nasal 8.7 mm bone Extremities / Bony Struc Biometry: FL / BPD 0.68 FL / HC 0.18 FL / AC 0.21 Tibia 40.1 mm 25w 2d 37%Valdemar GENERAL EVALUATION ----- Cardiac activity present. FHR 151 bpm. movements: present.Presentation: breech Placenta: Placental site: left lateral Umbilical cord: Cord vessels: 3 vessel cord. Insertion site: placentalinsertion: normal Amniotic fluid: Amount of AF: normal amount. MVP 5.1 cm ANATOMY ----- The following structures appear normal: Head / Neck Cranium. Lateral ventricles. Choroid plexus.Midline falx. Cavum septi pellucidi. Cerebellum. Cisterna magna. Thalami. Nuchal fold. Face Lips. Profile. Nose. Orbits. Heart / Thorax 4-chamber view. RVOT view. LVOT view. 3-vesselview. 1-khbqgy-hsfkshf view. Situs. Ductal arch view. Superior vena cava. Inferior vena cava. High shortaxis view. Cardiac rhythm. Diaphragm. Abdomen Abdominal wall. Cord insertion. Stomach. Kidneys.Bladder. Genitals. Spine Cervical spine. Thoracic spine. Lumbar spine. Extremities / Arms. Right hand. Left hand. Legs. Left foot. Skeleton The following structures could not be adequately visualized: Face Palate. Heart / Thorax Aortic arch view. Spine Sacral spine. Extremities / Right foot. Skeleton sex: male. MATERNAL STRUCTURES ----- Cervix Visualized Approach - Transabdominal Right Ovary Visualized Size 61 mm x 65 mm x 49 mm. Vol 99.7 cm Cyst(s) Size 61 mm x 48 mm x 64 mm. Mean 57.7 mm.Vol 98.118 cm Left Ovary Suboptimal GROWTH OVERVIEW ----- Exam date GA BPD (mm) HC (mm) AC (mm) FL(mm) HL (mm) EFW (g) 09/11/2024 25w 4d 65.5 71% 242.4 54% 213.7 51%44.3 12% 44.8 75% 816 36% COMMENT ----- Patient's name and date of were verified by the facility specialist beforethe exam IMPRESSION ----- Summary of Findings: A detailed anatomic survey was performed.Ultrasound was used to both evaluate structural abnormalities and to evaluate more subtle features of the face andextremities that could indicate aneuploidy. Detailed anatomic survey was performed due to maternal obesity and chronichypertension. 1. Single living fetus with gestational age of 25w 4d, (GUILLE = 12/21/2024),based on the reported clinical dates. 2. Detailed anatomic survey is incomplete due to maternal acoustics andfetal position. No structural abnormalities are identified. Palate, right foot, sacral spine and AA suboptimal. 3. The amniotic fluid volume is normal with maximum vertical pocket of 5.1cm. 4. Estimated weight is 816 g (36%ile). 5. Placenta is left lateral; no previa. Normal cord insert. 6. Right ovary noted with homogeneous cyst with internal echoes measuring4.71 cm x 5.65 cm x 3.99 cm. Patient's records demonstrate history of possible dermoid in right ovary since 2021 CTscan. The presence of a normal anatomic survey does not rule out genetic,chromosomal or structural anomalies. Recommendation: - Follow up ultrasound for growth and completion of anatomic views in 4weeks. Thank you for inviting us to participate in your patient's care. us Yamileth Villegas NP US ORDERABLES Final Result from Last 3 Months Insurance [facility] CHOICE [id number]
--- OUTSIDE RECORDS SUMMARY | 2024-09-27 20:13 | XMS_ITS | Data Portability ---
Author Organization [facility] Address [address] [facility] [place] [address] Care Team Providers Care Mechanical Engineering Specialist Name Role Phone EMMETT TORRE Primary Care Provider Assessment Encounter Date Assessment Date Assessment LastModified by Organization Details LastModified Time 01/18/2023 01/18/2023 27yo F w/ a PMH of dermoid cyst, DM2, HTN and morbid obesity presenting for back pain. [email or web address] Not available 01/22/2023 01:46:09 11/16/2023 11/16/2023 Will [...] or plasma 2023 024 [facility], [address] [address], [place], [address], 16:14:48 prenata l panel 2023 024 [facility], [address] [facility] [address], [place], [address], 4 16:14:42 drug screen, urine 2023 024 [facility], [address], [place], [address], 4 16:14:47 hemoglo bin S (hbs), presenc e, blood 2023 024 [facility], [address], [place], [address], 4 16:14:49 varicel la zoster virus IgG Ab, QN, IA, serum 2023 024 [facility], [address], [place], [address], 4 16:14:51 trichom onas vaginal is RNA 2023 024 [facility], [address], [place], [address], 4 16:14:46 hsv (1+2) igg, serum 2023 024 [facility], [address], [place], [address], 4 16:14:43 mycopla sma genital ium DNA, QL, KETURAH+pro be, urine 2023 024 [facility], [address], [place], [address], 4 16:14:45 rapid strep group A, throat 2022 023 [facility] In-Office Order, Internal Use Only DO Not Attach Compendium DO Not Attach Compendium, Do Not Delete/merge, [id number] 3 15:03:09 rapid strep group A, throat 2022 023 [email or web address] In-Office Order, Internal Use Only DO Not Attach Compendium DO Not Attach Compendium, Do Not Delete/merge, [id number] 3 19:16:56 influen za virus A + B + SARS-Co V-2 (COVID1 9) Ag panel, rapid IA, upper respira tory specime n 2022 023 [email or web address] In-Office Order, Internal Use Only DO Not Attach Compendium DO Not Attach Compendium, Do Not Delete/merge, [id number] 3 19:16:56 Referral materna l & medicin e referra l 2023 024 [facility], [address] [place] [address], [address], 4 15:34:14 Procedures None recorde d. Surgeries None recorde d. Imaging US, obstetr ic, 1st trimest er 2023 024 rashida Harm[facility]uling, [address], [place], [address], 4 10:21:32 Medication Orders ondanse adam 8 mg disinte grating tablet 2023 024 [facility], [address] [facility], [place], [address], 4 12:28:45 Prenata l 28 mg iron-80 0 mcg tablet 2023 024 [facility], [address] [facility], [place], [address], 4 12:39:31 amoxici llin 875 mg tablet 2022 023 [id number], [address] [facility], [place], [address], 4 11:10:56 cyclobe nzaprin e 5 mg tablet 2022 023 [email or web address] [id number], [address] [facility], [place], [address], 12:13:40 Patient TargetsNo targets recorded. Patient Instructions Encounter Date Encounter Id Patient Instructions Last Modified By Organization Details Last Modified Time 01/18/2023 [id number] back stretches: exercises [email or web address] Not available 01/22/2023 01:45:57 shoulder stretches: exercises [email or web address] Not available 01/22/2023 01:45:57 neck spasm: exercises [email or web address] Not available 01/22/2023 01:45:57 A healthy lifestyle: care instructions [email or web address] Not available 01/19/2023 11:26:15 Attending Physician Addendum I did not personally see or examine the patient with the resident. I was physically present to provide indirect supervision through entire encounter. I have reviewed the documentation and agree with the history, physical findings, work-up, and medical decision making as recorded. Mari Valentine MD Not available 01/22/2023 09:40:51 03/20/2023 [id number] Attending Physician Attestation I did not personally see or examine the patient with the resident. I was physically present to provide indirect supervision through entire encounter. I have reviewed the documentation and agree with the history, physical findings, work-up, and medical decision making as recorded. Jose Enrique Whittington MD [email or web address] Not available 03/20/2023 18:20:50 03/26/2023 [id number] On the date of this encounter, I was immediately available to assist the resident/fellow in the care of the patient, and have reviewed and agree with the resident s findings and plan of care. ~MD Tania [email or web address] Not available 03/26/2023 12:37:07 11/16/2023 [id number] extreme nausea and vomiting in : care instructions [email or web address] Not available 11/16/2023 12:28:39 high-risk : care instructions [email or web address] Not available 11/16/2023 12:28:40 Reason for Referral Maternal & Medicine Re ferral for High risk Referring Physician: Ericka Lamas, Construction Teacher, Encounter Date: 11/16/2023 Results Created Date Observation [...] DO Not Attach Compendium, Do Not Delete/merge, [id number] 03/20/2023 17:19:50 03/20/20 23 03/20/2023 influ myesha [...] F 0.0 % 0.0-2. 0 Not Available [facility] [address] [facility] [address], [place], [address], 11/21/2023 16:14:41 11/16/19 24 11/20/2023 HGB FRACT IONAT ION CASCA DE HGB A 60.7 % 96.4-9 8.8 below low normal Not Available [facility] ([facility]) [address] [facility] [address], [place], [address], 11/21/2023 16:14:41 11/16/19 24 11/20/2023 HGB FRACT IONAT ION CASCA DE HGB A2 3.2 % 1.8-3. 2 Not Available [facility] ([facility]) [address] [facility] [address], [place], [address], 11/21/2023 16:14:41 11/16/19 24 11/20/2023 HGB FRACT IONAT ION CASCA DE HGB S 36.1 % 0.0 above high normal Not Available [facility] ([facility]) [address] [facility] [address], [place], [address], 11/21/2023 16:14:41 11/16/19 24 11/20/2023 HGB FRACT [...] A2 1.8 - 4.0% Not Available [facility] ([facility]) [address] [facility] [address], [place], [address], 11/21/2023 16:14:41 11/16/19 24 11/17/2023 INTER PRETA TION: interpretati on: Commen t Not infec lion with HCV unles s early or acute infec tion is suspe cted (whic h may be delay ed in an immun ocomp romis ed indiv idual ), or other evide nce exist s to indic ate HCV infec tion. Not Available [facility] ([facility]) [address] [facility] [address], [place], [address], 11/21/2023 16:14:41 11/16/19 24 11/17/2023 PREGN SHELBIE, INITI AL SCREE N HBsAg screen NEGATI VE negati ve Not Available [facility] ([facility]) [address] [facility] [address], [place], [address], 11/21/2023 16:14:42 11/16/19 24 11/17/2023 PREGN SHELBIE, INITI AL SCREE N HCV Ab NON REACTI VE nonrea ctive Not Available [facility] ([facility]) [address] [facility] [address], [place], [address], 11/21/2023 16:14:42 11/16/19 24 11/17/2023 PREGN SHELBIE, INITI AL SCREE N RPR NON REACTI VE nonrea ctive Not Available [facility] ([facility]) [address] [place], [address], 11/21/2023 16:14:42 11/16/19 24 11/17/2023 PREGN SHELBIE, INITI AL SCREE N rubella antibodies, IgG 3.83 index immune >0.99 Non-i mmune <0.90 Equiv ocal 0.90 - 0.99 Immun e >0.99 Not Available [facility] ([facility]) [address] [place], [address], 11/21/2023 16:14:42 11/16/19 24 11/17/2023 PREGN SHELBIE, INITI AL SCREE N ABO grouping O Not Available [facility] ([facility]) [address] [place], [address], 11/21/2023 16:14:42 11/16/19 24 11/17/2023 PREGN SHELBIE, INITI AL SCREE N Rh factor POSITI VE Pleas e note: Prior recor ds for this patie nt's ABO / Rh type are not avail able for addit ional verif icati on. Not Available [facility] ([facility]) [address] [facility] [address], [place], [address], 11/21/2023 16:14:42 11/16/19 24 11/17/2023 PREGN SHELBIE, INITI AL SCREE N antibody screen NEGATI VE negati ve Not Available [facility] ([facility]) [address] [facility] [address], [place], [address], 11/21/2023 16:14:42 11/16/19 24 11/17/2023 PREGN SHELBIE, INITI AL SCREE N HIV Ab/P24 Ag screen NON REACTI VE nonrea ctive HIV Negat alexandra HIV-1 /HIV- 2 antib odies and HIV-1 p24 antig en were NOT detec lion. There is no labor atory evide nce of HIV infec tion. Not Available [facility] ([facility]) [address] [facility] [address], [place], [address], 11/21/2023 16:14:42 11/16/19 24 11/17/2023 PREGN SHELBIE, INITI AL SCREE N WBC 5.5 x10e3 /uL 3.4-10 .8 Not Available [facility] ([facility]) [address] [facility] [address], [place], [address], 11/21/2023 16:14:42 11/16/19 24 11/17/2023 PREGN SHELBIE, INITI AL SCREE N RBC 4.64 x10e6 /uL 3.77-5 .28 Not Available [facility] ([facility]) [address] [place], [address], 11/21/2023 16:14:42 11/16/19 24 11/17/2023 PREGN SHELBIE, INITI AL SCREE N hemoglobin 12.1 g/dL 11.1-1 5.9 Not Available [facility] ([facility]) [address] [facility] [address], [place], [address], 11/21/2023 16:14:42 11/16/19 24 11/17/2023 PREGN SHELBIE, INITI AL SCREE N hematocrit 36.8 % 34.0-4 6.6 Not Available [facility] ([facility]) [address] [place], [address], 11/21/2023 16:14:42 11/16/19 24 11/17/2023 PREGN SHELBIE, INITI AL SCREE N MCV 79 fL 79-97 Not Available [facility] ([facility]) [address] [place], [address], 11/21/2023 16:14:42 11/16/19 24 11/17/2023 PREGN SHELBIE, INITI AL SCREE N MCH 26.1 pg 26.6-3 3.0 below low normal Not Available [facility] ([facility]) [address] [place], [address], 11/21/2023 16:14:42 11/16/19 24 11/17/2023 PREGN SHELBIE, INITI AL SCREE N MCHC 32.9 g/dL 31.5-3 5.7 Not Available [facility] ([facility]) [address] [place], [address], 11/21/2023 16:14:42 11/16/19 24 11/17/2023 PREGN SHELBIE, INITI AL SCREE N RDW 13.2 % 11.7-1 5.4 Not Available [facility] ([facility]) [address] [place], [address], 11/21/2023 16:14:42 11/16/19 24 11/17/2023 PREGN SHELBIE, INITI AL SCREE N platelets 326 x10e3 /uL 150-45 0 Not Available [facility] ([facility]) [address] [place], [address], 11/21/2023 16:14:42 11/16/19 24 11/17/2023 PREGN SHELBIE, INITI AL SCREE N neutrophils 60 % notest ab. Not Available [facility] ([facility]) [address] [facility] [address], [place], [address], 11/21/2023 16:14:42 11/16/19 24 11/17/2023 PREGN SHELBIE, INITI AL SCREE N lymphs 28 % notest ab. Not Available [facility] ([facility]) [address] [facility] [address], [place], [address], 11/21/2023 16:14:42 11/16/19 24 11/17/2023 PREGN SHELBIE, INITI AL SCREE N monocytes 8 % notest ab. Not Available [facility] ([facility]) [address] [facility] [address], [place], [address], 11/21/2023 16:14:42 11/16/19 24 11/17/2023 PREGN SHELBIE, INITI AL SCREE N eos 2 % notest ab. Not Available [facility] ([facility]) [address] [facility] [address], [place], [address], 11/21/2023 16:14:42 11/16/19 24 11/17/2023 PREGN SHELBIE, INITI AL SCREE N basos 1 % notest ab. Not Available [facility] ([facility]) [address] [facility] [address], [place], [address], 11/21/2023 16:14:42 11/16/19 24 11/17/2023 PREGN SHELBIE, INITI AL SCREE N neutrophils (absolute) 3.4 x10e3 /uL 1.4-7. 0 Not Available [facility] ([facility]) [address] [place], [address], 11/21/2023 16:14:42 11/16/19 24 11/17/2023 PREGN SHELBIE, INITI AL SCREE N lymphs (absolute) 1.6 x10e3 /uL 0.7-3. 1 Not Available [facility] ([facility]) [address] [place], [address], 11/21/2023 16:14:42 11/16/19 24 11/17/2023 PREGN SHELBIE, INITI AL SCREE N monocytes(ab solute) 0.4 x10e3 /uL 0.1-0. 9 Not Available [facility] ([facility]) [address] [place], [address], 11/21/2023 16:14:42 11/16/19 24 11/17/2023 PREGN SHELBIE, INITI AL SCREE N eos (absolute) 0.1 x10e3 /uL 0.0-0. 4 Not Available [facility] ([facility]) [address] [facility] [address], [place], [address], 11/21/2023 16:14:42 11/16/19 24 11/17/2023 PREGN SHELBIE, INITI AL SCREE N baso (absolute) 0.0 x10e3 /uL 0.0-0. 2 Not Available [facility] ([facility]) [address] [place], [address], 11/21/2023 16:14:42 11/16/19 24 11/17/2023 PREGN SHELBIE, INITI AL SCREE N immature granulocytes 1 % notest ab. Not Available [facility] ([facility]) [address] [place], [address], 11/21/2023 16:14:42 11/16/19 24 11/17/2023 PREGN SHELBIE, INITI AL SCREE N immature grans (abs) 0.0 x10e3 /uL 0.0-0. 1 Not Available [facility] ([facility]) [address] [place], [address], 11/21/2023 16:14:42 11/16/19 24 11/17/2023 PREGN SHELBIE, INITI AL SCREE N specific gravity 1.019 1.005- 1.030 Not Available [facility] ([facility]) [address] [place], [address], 11/21/2023 16:14:42 11/16/19 24 11/17/2023 PREGN SHELBIE, INITI AL SCREE N pH 6.0 5.0-7. 5 Not Available [facility] ([facility]) [address] [place], [address], 11/21/2023 16:14:42 11/16/19 24 11/17/2023 PREGN SHELBIE, INITI AL SCREE N urine-color YELLOW yellow Not Available [facility] ([facility]) [address] [place], [address], 11/21/2023 16:14:42 11/16/19 24 11/17/2023 PREGN SHELBIE, INITI AL SCREE N appearance CLEAR clear Not Available [facility] ([facility]) [address] [place], [address], 11/21/2023 16:14:42 11/16/19 24 11/17/2023 PREGN SHELBIE, INITI AL SCREE N WBC esterase TRACE negati ve abnormal Not Available [facility] ([facility]) [address] [place], [address], 11/21/2023 16:14:42 11/16/19 24 11/17/2023 PREGN SHELBIE, INITI AL SCREE N protein NEGATI VE negati ve/tra ce Not Available [facility] ([facility]) [address] [place], [address], 11/21/2023 16:14:42 11/16/19 24 11/17/2023 PREGN SHELBIE, INITI AL SCREE N glucose NEGATI VE negati ve Not Available [facility] ([facility]) [address] [place], [address], 11/21/2023 16:14:42 11/16/19 24 11/17/2023 PREGN SHELBIE, INITI AL SCREE N ketones NEGATI VE negati ve Not Available [facility] ([facility]) [address] [place], [address], 11/21/2023 16:14:42 11/16/19 24 11/17/2023 PREGN SHELBIE, INITI AL SCREE N occult blood NEGATI VE negati ve Not Available [facility] ([facility]) [address] [place], [address], 11/21/2023 16:14:42 11/16/19 24 11/17/2023 PREGN SHELBIE, INITI AL SCREE N bilirubin NEGATI VE negati ve Not Available [facility] ([facility]) [address] [place], [address], 11/21/2023 16:14:42 11/16/19 24 11/17/2023 PREGN SHELBIE, INITI AL SCREE N urobilinogen ,semi-qn 1.0 mg/dL 0.2-1. 0 Not Available [facility] ([facility]) [address] [place], [address], 11/21/2023 16:14:42 11/16/19 24 11/17/2023 PREGN SHELBIE, INITI AL SCREE N nitrite, urine NEGATI VE negati ve Not Available [facility] ([facility]) [address] [place], [address], 11/21/2023 16:14:42 11/16/19 24 11/17/2023 PREGN SHELBIE, INITI AL SCREE N microscopic examination SEE BELOW: Micro scopi c was indic ated and was perfo rmed. Not Available [facility] ([facility]) [address] [place], [address], 11/21/2023 16:14:42 11/16/19 24 11/18/2023 PREGN SHELBIE, INITI AL SCREE N urine culture,pren atal, w/gbs FINAL REPORT Not Available [facility] ([facility]) [address] [facility] [address], [place], [address], 11/21/2023 16:14:42 11/16/19 24 11/21/2023 PREGN SHELBIE, INITI AL SCREE N chlamydia trachomatis, KETURAH NEGATI VE negati ve Not Available [facility] ([facility]) [address] [facility] [address], [place], [address], 11/21/2023 16:14:42 11/16/19 24 11/21/2023 PREGN SHELBIE, INITI AL SCREE N neisseria gonorrhoeae, KETURAH NEGATI VE negati ve Not Available [facility] ([facility]) [address] [facility] [address], [place], [address], 11/21/2023 16:14:42 11/16/19 24 11/17/2023 HSV 1 [...] lion to HSV-1 . Not Available [facility] ([facility]) [address] [facility] [address], [place], [address], 11/21/2023 16:14:43 11/16/19 24 11/17/2023 HSV 1 [...] jovanna corre lated . Not Available [facility] ([facility]) [address] [place], [address], 11/21/2023 16:14:43 11/16/19 24 11/21/2023 M GENIT ALIUM KETURAH, URINE mycoplasma genitalium KETURAH NEGATI VE negati ve Not Available [facility] ([facility]) [address] [place], [address], 11/21/2023 16:14:45 11/16/19 24 11/21/2023 TRICH VAG BY KETURAH trich vag by KETURAH NEGATI VE negati ve Not Available [facility] ([facility]) [address] [place], [address], 11/21/2023 16:14:46 11/16/19 24 11/17/2023 MICRO SCOPI C EXAMI NATIO N WBC 0-5 /hpf 0-5 Not Available [facility] ([facility]) [address] [place], [address], 11/21/2023 16:14:47 11/16/19 24 11/17/2023 MICRO SCOPI C EXAMI NATIO N RBC None seen /hpf 0-2 Not Available [facility] ([facility]) [address] [facility] [facility] [address], [place], [address], 11/21/2023 16:14:47 11/16/19 24 11/17/2023 MICRO SCOPI C EXAMI NATIO N epithelial cells (non renal) 0-10 /hpf 0-10 Not Available [facility] ([facility]) [address] [facility] [facility] [address], [place], [address], 11/21/2023 16:14:47 11/16/19 24 11/17/2023 MICRO SCOPI C EXAMI NATIO N casts None seen /lpf nonese en Not Available [facility] ([facility]) [address] [facility] [address], [place], [address], 11/21/2023 16:14:47 11/16/19 24 11/17/2023 MICRO SCOPI C EXAMI NATIO N bacteria None seen nonese en/few Not Available [facility] ([facility]) [address] [facility] [address], [place], [address], 11/21/2023 16:14:47 11/16/19 24 11/17/2023 [id number] 9 10 DRUG- BUND amphetamines , urine NEGATI VE NG/mL cutoff =1000 Amphe tamin e test inclu sonal Amphe tamin e and Metha mphet amine . Not Available [facility] ([facility]) [address] [facility] [address], [place], [address], 11/21/2023 16:14:47 11/16/19 24 11/17/2023 [id number] 9 10 DRUG- BUND barbiturates NEGATI VE NG/mL cutoff =200 Not Available [facility] ([facility]) [address] [facility] [address], [place], [address], 11/21/2023 16:14:47 11/16/19 24 11/17/2023 [id number] 9 10 DRUG- BUND benzodiazepi duc NEGATI VE NG/mL cutoff =200 Not Available [facility] ([facility]) [address] [place], [address], 11/21/2023 16:14:47 11/16/19 24 11/17/2023 [id number] 9 10 DRUG- BUND cannabinoid NEGATI VE NG/mL cutoff =50 Not Available [facility] ([facility]) [address] [place], [address], 11/21/2023 16:14:47 11/16/19 24 11/17/2023 [id number] 9 10 DRUG- BUND cocaine (metab.) NEGATI VE NG/mL cutoff =300 Not Available [facility] ([facility]) [address] [place], [address], 11/21/2023 16:14:47 11/16/19 24 11/17/2023 [id number] 9 10 DRUG- BUND methaqualone NEGATI VE NG/mL cutoff =300 Not Available [facility] ([facility]) [address] [place], [address], 11/21/2023 16:14:47 11/16/19 24 11/17/2023 [id number] 9 10 DRUG- BUND opiates NEGATI VE NG/mL cutoff =2000 Opiat e test inclu sonal Codei ne and Morph ine only. Not Available [facility] ([facility]) [address] [place], [address], 11/21/2023 16:14:47 11/16/19 24 11/17/2023 [id number] 9 10 DRUG- BUND phencyclidin e NEGATI VE NG/mL cutoff =25 Not Available [facility] ([facility]) [address] [place], [address], 11/21/2023 16:14:47 11/16/19 24 11/17/2023 [id number] 9 10 DRUG- BUND methadone screen, urine NEGATI VE NG/mL cutoff =300 Not Available [facility] ([facility]) [address] [place], [address], 11/21/2023 16:14:47 11/16/19 24 11/17/2023 [id number] 9 10 DRUG- BUND propoxyphene , urine NEGATI VE NG/mL cutoff =300 Not Available [facility] ([facility]) [address] [place], [address], 11/21/2023 16:14:47 11/16/19 24 11/17/2023 HCG,B ETA SUBUN IT, QNT HCG,beta subunit,qnt, serum 622 mIU/m L Femal e (Non- pregn ant) 0 - 5 (Post menop ausal ) 0 - 8 Femal e (Preg nant) Weeks of Gesta tion 3 6 - 71 4 10 - 750 5 120 - 6694 6 158 - 71630 7 5628 -6033 63 8 32208 -4353 71 9 56139 -1846 10 10 67181 -9823 77 12 26041 -6352 12 14 61896 - 96093 15 48359 - 36620 16 5187 - 01357 17 0985 - 96385 18 8452 - 25136 Venancio ECLIA metho dolog y Not Available [facility] ([facility]) [address] [place], [address], 11/21/2023 16:14:48 11/16/19 24 11/19/2023 HB SOLU + RFLX FRAC hemoglobin (HGB) solubility POSITI VE negati ve abnormal Not Available [facility] ([facility]) [address] [place], [address], 11/21/2023 16:14:49 11/16/19 24 11/18/2023 RESUL T result 1 Commen t Mixed uroge nital lilia Great er than 100,0 00 colon y formi ng units per mL Not Available [facility] ([facility]) [address] [place], [address], 11/21/2023 16:14:51 11/16/19 24 11/17/2023 VARIC KINDRA- [...] stage of disea se. Not Available [facility] ([facility]) [address] [facility] [address], [place], [address], 11/21/2023 16:14:51 12/24/19 24 12/25/2023 HCG,B ETA SUBUN IT, QNT HCG,beta subunit,qnt, serum 8415 mIU/m L Femal e (Non- pregn ant) 0 - 5 (Post menop ausal ) 0 - 8 Femal e (Preg nant) Weeks of Gesta tion 3 6 - 71 4 10 - 750 5 217 - 7138 6 158 - 69603 7 3697 -1635 63 8 29281 -1495 71 9 45086 -1514 10 10 33051 1861 77 12 95459 -9826 12 14 98324 - 87230 15 29796 - 4946681 16 9040 56544 17 0375 - 83715 18 8074 - 82632 Venancio ECLIA metho dolog y Not Available [facility] ([facility]) [address] [facility], [place], [address], 12/25/2023 16:13:14 12/26/19 24 12/27/2023 HCG,B ETA SUBUN IT, QNT HCG,beta subunit,qnt, serum 6499 mIU/m L Femal e (Non- pregn ant) 0 - 5 (Post menop ausal ) 0 - 8 Femal e (Preg nant) Weeks of Gesta tion 3 6 - 71 4 10 - 750 5 217 - 7138 6 158 - 51952 7 3697 -1635 63 8 73757 -1495 71 9 15957 -1514 10 10 93043 -1869 77 12 36516 -2106 12 14 18771 - 52646 15 56865 - 82148 16 9040 19276 17 8175 - 08518 18 8099 - 35423 Venancio ECLIA metho dolog y Not Available [facility] ([facility]) [address] [facility], [place], [address], 12/27/2023 11:14:17 01/02/20 24 01/03/2024 HCG,B ETA SUBUN IT, QNT HCG,beta subunit,qnt, serum 1741 mIU/m L Femal e (Non- pregn ant) 0 - 5 (Post menop ausal ) 0 - 8 Femal e (Preg nant) Weeks of Gesta tion 3 6 - 71 4 10 - 750 5 090 - 1384 6 995 - 12645 7 0316 -0302 63 8 23529 -8550 71 9 28198 -4287 10 10 44149 -1723 77 12 52487 -6596 12 14 35057 - 72510 15 83995 - 40252 16 9040 - 89465 17 8120 - 95273 18 8099 - 37864 Venancio ECLIA metho dolog y Not Available [facility] [facility]) [address] [facility], [place], [address], 01/03/2024 16:10:37 Result Notes None recorded. Problems Name Problem SNOMED Code Status Onset Date Resolution Date Notes Provider Name and Address Organization Details Recorded Time Active or passive immuniza tion Completed 201707/04/2022 Patrick Lopez MD Attn: Accounting ,[address] [facility], [place], [address] , [place] [facility] 3 18:20:06 Serum creatini ne outside referenc e range 775646907 Active 2017 Shantel [place]ne, [place] [facility] 8 11:45:18 Fatigue 72170299 Active 2017 [place] [facility] 8 11:45:20 Pregnanc y 38513885 Completed 201909/27/2020 ADAM [place] [facility] 4 12:14:42 Morbid obesity 511418309 Completed BMI = 43 KITA [place] [facility] 1 10:58:49 Hirsutis m 121211483 Completed [place] [facility] 1 10:58:49 Bacteriu deanna 60264530 Completed 2019 GBS, Tx'd [place] [facility] 1 10:58:49 Administ ration of influenz a vaccine Completed 2019 [place] [facility] 1 10:58:49 Gestatio nal diabetes mellitus 36842098 Completed 2020 [facility] . NSTs/BPP s at [facility]. IOL @ 39 wks KITA [place] [facility] 1 10:58:48 Otalgia 12760954 Completed 08/18/2017 Sh[place]el [place] [facility] 8 17:37:22 [facility] hyperten sabine 84620244 Active 2022 Patrick Lopez MD Attn: Accounting ,[address] [place], [address] , [place] [facility] 3 16:16:54 Hyperbil irubinem ia 06400414 Active 2022 resolved - 07/04/22 2.0; rechecke d 08/11/22 0.7 Patrick Lopez MD Attn: Accounting ,[address] [place], [address] , [place] [facility] 3 09:45:25 Liver enzymes level above referenc e range 718310429 Active 2022 Patrick Lopez MD Attn: Accounting ,[address] [facility], [place], [address] , [place] [facility] 3 16:19:41 Microcyt osis 673219846 Active 202208/11/22- MCV 79 w/o anemia. 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 674819461 Active [place] [facility] 6 14:41:04 Bilatera l knee pain Active 2016 Shantel [place] [facility] 7 15:02:34 Body mass index 40+ - severely obese 161454947 Active 2016 Zak Gardner MD Attn: Accounting ,[address] [place], [address] , [place] [facility] 3 09:20:56 Adult health examinat ion Completed 201607/04/2022 Patrick Lopez MD Attn: Accounting ,[address] [place], [address] , [place] [facility] 3 18:20:12 Impacted cerumen 80215762 Completed 201607/04/2022 Patrick Lopez MD Attn: Accounting ,[address] [place], [address] , [place] [facility] 3 18:19:48 Prediabe mary grace 191446583 Active 2016 Shantel [place] [facility] 7 15:03:32 Paresthe brenda 72497926 Active 2016 Shantel [place] [facility] 7 00:46:39 Subclini ivette hypothyr oidism 15152797 Completed 201608/11/2022 Patrick Lopez MD Attn: Accounting ,[address], [place], [address] , [facility] - SI 16:18:24 Problem Notes None recorded. Procedures Surgical History Date Name Laterality Status Provider Name and Address Organization Details Recorded Time 11/04/19 Date of Last Pap Smear completed Susan Eric RN [place] [facility] 11/09/2021 10:01:49 03/11/20 19 Control Implant Removal completed Haven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
--- OUTSIDE RECORDS SUMMARY | 2024-09-27 20:13 | XMS_ITS | Clinical Summary ---
Author Organization [facility] Address [address] [place] [address] Care Team Providers Care Custodial Services Manager Name Role Phone Unavailable Primary Care Provider Unavailabl e Source Comments [facility],non-owned Affiliates and Associated Physician Practices is amultiple site organization consisting of ambulatory clinics and hospital sitesin [place], [place], [place] and [place]. This disclosure is being madepursuant to the Care Everywhere program and may not contain all information available regarding this patient. Last updated 18.[facility] Allergies No known active allergies Medications * [...] after meal elevations. Completing testing with primary Band Attacher twice weekly. Strong efforts with dietary changes. [...] benefits. 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 8. Sent to [facility] for evaluation of chest pain complaints, report called to Roselyn CEVALLOS in [place]. Primary OB also alerted of patient's complaints and I talked with Peyton at Dr. Portillo office. Assessment & Plan (09/01/2020 12:44 PM SPLITTING MACHINE TENDER): Total weight gain thus far: 12 pounds [...] 2018 Assessment & Plan (09/01/2020 12:29 PM SPLITTING MACHINE TENDER): No treatment offered at time of diagnosis [...] care, and heating? Not very hard 12/20/2023 [facility]at [facility] - Occupational Stress [...] place to sleep or slept in a penitentiary (including now)? No 12/20/2023 [place] Depression Scale Answer Date Recorded [place] Depression Scale Total 0 12/20/2023 The thought [...] 2023- season) 2024 INFLUENZA VACCINE (#1) 2024 , 05/07/2022, 06/01/2020, Additional history exists DEPRESSION SCREENING 07/02/2024 12/20/2023 ZOSTER VACCINE (1 of 2) 2047 HEPATITIS C SCREENING Completed 09/16/2020 HIB VACCINE Aged Out No longer eligi ble based on patient's age to complete this topic HPV VACCINE Aged Out No longer eligi ble based on patient's age to complete this topic MENINGOCOCCAL (Group B) VACCINE SHARED DECISION-MAKING Aged Out No longer eligible based on patient's age to complete this topic MENINGOCOCCAL GROUPS A/C/Y/W VACCINE Aged Out No longer eligible based [...] Reactive Non Reactive 09/16/2020 10:17 AM CDT [facility] HBsAg Non Reactive Non Reactive 09/16/2020 10:17 AM CDT [facility] HBc Antibody IgM Non Reactive Non Reactive 09/16/2020 10:17 AM CDT [facility] HCV Antibody Screen Non Reactive Non Reactive 09/16/2020 10:17 AM CDT [facility] Blood BLOOD SPECIMEN / Unknown Lab Venipuncture / Unknown 09/16/2020 8:09 AM CDT 09/16/2020 9:22 AM CDT Narrative [facility] - 09/16/2020 10:17 AM CDT Non Reactive - Antibodies to Hepatitis C virus (HCV) were not detected, result does not exclude early acute HCV infection. Jamie Leija MD LAB - CHEMISTRY [facility] [address] [place] [address] from Last 3 Months or Most Recently [...]
--- OUTSIDE RECORDS SUMMARY | 2024-09-27 20:13 | XMS_ITS | Data Portability ---
Author Organization [facility] [place] Address [address] [place] [address] Care Team Providers Care Mechanic Field Service Name Role Phone BENJAMÍN JOSE Primary Care Provider Assessment Encounter Date Assessment Date Assessment LastModified by Organization Details LastModified Time 08/06/2024 08/06/2024 Patient is _20__weeks . Discussed plan. Not available 08/06/2024 12:47:15 09/03/2024 09/03/2024 Patient is _24__weeks . Discussed plan. [email or web address] Not available 09/03/2024 12:37:39 Plan of Treatment Reminders Order Date Submit Date Provider Last Modified By Organization Details Last Modified Time Details Appointments OB ROUTINE 2024 10:15A Josef DAUGHERTY MD Not available Not available Not available Lab None recorded. Referral None recorded. Procedures None recorded. Surgeries None recorded. Imaging US, obstetric , follow-up 2024 025 ROBERT [place], [address], [place], [address], 09/03/2024 13:06:13 US, obstetric , 2nd or 3rd trimester 2024 025 [email or web address] [place], [address], [place], [address], 08/06/2024 20:09:28 Medication Orders None recorded. Patient TargetsNo targets recorded. Patient InstructionsNo instructions recorded. Reason for Referral None Reported. Results Created Date Observation Date Name Description Value Unit Range Abnormal Flag Note LastModifiedBy Organization Detail LastModifiedTime 06/16/20 24 06/16/2024 [UNIT Y] ANEUP LOIDY NIPT fraction 7.0% normal Not Available [facility] [address] , [place], [address], 06/16/2024 23:46:30 06/16/20 24 06/16/2024 [UNIT Y] ANEUP LOIDY NIPT 22Q11.2 microdeletio n LOW RISK <1 in 10,000 normal Not Available [facility] [address] , [place], [address], 06/16/2024 23:46:30 06/16/20 24 06/16/2024 [UNIT Y] ANEUP LOIDY NIPT sex chromosome aneuploidy NOT DETECT ED normal Not Available [facility] [address] [facility], [place], [address], 06/16/2024 23:46:30 06/16/20 24 06/16/2024 [UNIT Y] ANEUP LOIDY NIPT monosomy X LOW RISK <1 in 10,000 normal Not Available [facility] [address] , [place], [address], 06/16/2024 23:46:30 06/16/20 24 06/16/2024 [UNIT Y] ANEUP LOIDY NIPT trisomy 13 LOW RISK <1 in 10,000 normal Not Available [facility] [address] , [place], [address], 06/16/2024 23:46:30 06/16/20 24 06/16/2024 [UNIT Y] ANEUP LOIDY NIPT trisomy 18 LOW RISK <1 in 10,000 normal Not Available [facility] [address] , [place], [address], 06/16/2024 23:46:30 06/16/20 24 06/16/2024 [UNIT Y] ANEUP LOIDY NIPT trisomy 21 LOW RISK <1 in 10,000 normal Not Available [facility] [address], [place], [address], 06/16/2024 23:46:30 06/16/20 24 06/16/2024 [UNIT Y] ANEUP LOIDY NIPT sex MALE normal Not Available [facility] [address], [place], [address], 06/16/2024 23:46:30 06/16/20 24 06/16/2024 [UNIT Y] ANEUP LOIDY NIPT gestation SINGLE TON normal Not Available [facility] [address], [place], [address], 06/16/2024 23:46:30 06/16/20 24 06/16/2024 [UNIT Y] ANEUP LOIDY NIPT for detailed report, see pdf See PDF normal Not Available [facility] [address], [place], [address], 06/16/2024 23:46:30 07/09/19 25 07/09/2024 [UNIT Y] FABRICE Chau fraction 5.9% normal Not Available [facility] [address] [facility], [place], [address], 07/09/2024 10:21:44 07/09/19 25 07/09/2024 [UNIT Y] FABRICE Chau redraw requested? YES abnormal Not Available [facility] [address], [place], [address], 07/09/2024 10:21:44 07/09/19 25 07/09/2024 [UNIT Y] FABRICE Chau sickle cell disease/beta -thalassemia /hemoglobino pathies nipt result NO RESULT abnormal Not Available [facility] [address], [place], [address], 07/09/2024 10:21:44 07/09/19 25 07/09/2024 [UNIT Y] FABRICE Chau alpha-thalas semia nipt result LOW RISK 1 in 2,300 ( patern al ethnic ity); 1 in 14,000 (Gener al popula tion) normal Not Available [facility] [address], [place], [address], 07/09/2024 10:21:44 07/09/19 25 07/09/2024 [UNIT Y] FABRICE Chau sickle cell disease/beta -thalassemia /hemoglobino pathies carrier screen POSITI VE Sickle cell: c.20A> T (p.Glu 7Val) abnormal Not Available [facility] [address], [place], [address], 07/09/2024 10:21:44 07/09/19 25 07/09/2024 [UNIT Y] FABRICE Chau alpha-thalas semia carrier screen POSITI VE Silent ky r; aa/a- abnormal Not Available [facility] [address], [place], [address], 07/09/2024 10:21:44 07/09/19 25 07/09/2024 [UNIT Y] FABRICE Chau cystic fibrosis carrier screen NEGATI VE normal Not Available [facility] [address], [place], [address], 07/09/2024 10:21:44 07/09/19 25 07/09/2024 [UNIT Y] FABRICE Chau spinal muscular atrophy carrier screen NEGATI VE 3 SMN1 copies , SNP not presen t normal Not Available [facility] [address], [place], [address], 07/09/2024 10:21:44 07/09/19 25 07/09/2024 [UNIT Y] FABRICE Chau for detailed report, see pdf See PDF normal Not Available [facility] [address], [place], [address], 07/09/2024 10:21:44 06/11/20 24 06/11/2024 PROTE IN/CR EATIN INE RATIO , URINE creatinine, urine 163.3 mg/dL R-No refer ence range estab lishe d for this assay Not Available [facility] (Lab) [address], [place], [address], 06/12/2024 05:05:54 06/11/20 24 06/11/2024 PROTE IN/CR EATIN INE RATIO , URINE protein, urine 8 mg/dL R-No refer ence range estab lishe d for this assay Not Available [facility] (Lab) [address], [place], [address], 06/12/2024 05:05:54 06/11/20 24 06/11/2024 PROTE IN/CR EATIN INE RATIO , URINE protein/crea tinine ratio, urine 0.05 . No Refer ence Range avail able for Rando m Urine s. A prote in to creat inine ratio of >=0.1 9 is a good predi ctor of signi fican t prote inuri a. A level of <0.14 can rule out signi fican t prote inuri a. Not Available [facility] (Lab) [address], [place], [address], 06/12/2024 05:05:54 06/11/20 24 06/11/2024 CBC W/DIF F WBC 5.0 10'3/ uL 3.5-10 .5 Not Available [facility] (Lab) [address], [place], [address], 06/12/2024 11:33:17 06/11/20 24 06/11/2024 CBC W/DIF F RBC 4.77 10'6/ uL (based on docume nted legal sex) 3.80-5 .20 Not Available [facility] (Lab) [address], [place], [address], 06/12/2024 11:33:17 06/11/20 24 06/11/2024 CBC W/DIF F HGB 12.7 g/dL (based on docume nted legal sex) 11.6-1 5.4 Not Available [facility] (Lab) [address], [place], [address], 06/12/2024 11:33:17 06/11/20 24 06/11/2024 CBC W/DIF F HCT 38.8 % (based on docume nted legal sex) 34.0-4 5.0 Not Available [facility] (Lab) [address], [place], [address], 06/12/2024 11:33:17 06/11/20 24 06/11/2024 CBC W/DIF F MCV 81.3 fL 80.0-9 9.0 Not Available [facility] (Lab) [address], [place], [address], 06/12/2024 11:33:17 06/11/20 24 06/11/2024 CBC W/DIF F MCH 26.6 pg 27.0-3 4.0 low Not Available [facility] (Lab) [address], [place], [address], 06/12/2024 11:33:17 06/11/20 24 06/11/2024 CBC W/DIF F MCHC 32.7 g/dL 32.0-3 5.5 Not Available [facility] (Lab) [address], [place], [address], 06/12/2024 11:33:17 06/11/20 24 06/11/2024 CBC W/DIF F RDW 14.8 % 11.0-1 5.0 Not Available [facility] (Lab) [address], [place], [address], 06/12/2024 11:33:17 06/11/20 24 06/11/2024 CBC W/DIF F plt 265 10'3/ uL 150-40 0 Not Available [facility] (Lab) [address], [place], [address], 06/12/2024 11:33:17 06/11/20 24 06/11/2024 CBC W/DIF F MPV 10.2 fL 8.8-12 .1 Not Available [facility] (Lab) [address], [place], [address], 06/12/2024 11:33:17 06/11/20 24 06/11/2024 CBC W/DIF F NRBC's 0.0 % 0.0 Not Available [facility] (Lab) [address], [place], [address], 06/12/2024 11:33:17 06/11/20 24 06/11/2024 CBC W/DIF F absolute NRBCs 0.0 10'3/ uL no refere nce range establ ished Not Available [facility] (Lab) [address], [place], [address], 06/12/2024 11:33:17 06/11/20 24 06/11/2024 CBC W/DIF F neutrophils 69.3 % 34.0-7 3.0 Not Available [facility] (Lab) [address], [place], [address], 06/12/2024 11:33:17 06/11/20 24 06/11/2024 CBC W/DIF F lymphocytes 22.2 % 15.0-5 0.0 Not Available [facility] (Lab) [address], [place], [address], 06/12/2024 11:33:17 06/11/20 24 06/11/2024 CBC W/DIF F monocytes 6.9 % 1.0-15 .0 Not Available [facility] (Lab) [address], [place], [address], 06/12/2024 11:33:17 06/11/20 24 06/11/2024 CBC W/DIF F eosinophils 1.0 % 0.0-8. 0 Not Available [facility] (Lab) [address], [place], [address], 06/12/2024 11:33:17 06/11/20 24 06/11/2024 CBC W/DIF F basophils 0.4 % 0.0-2. 0 Not Available [facility] (Lab) [address] , [place], [address], 06/12/2024 11:33:17 06/11/20 24 06/11/2024 CBC W/DIF F immature granulocytes 0.2 % no define d refere nce range Not Available [facility] (Lab) [address], [place], [address], 06/12/2024 11:33:17 06/11/20 24 06/11/2024 CBC W/DIF F absolute neutrophils 3.5 10'3/ uL 1.5-8. 0 Not Available [facility] (Lab) [address], [place], [address], 06/12/2024 11:33:17 06/11/20 24 06/11/2024 CBC W/DIF F absolute lymphocytes 1.1 10'3/ uL 1.0-4. 0 Not Available [facility] (Lab) [address], [place], [address], 06/12/2024 11:33:17 06/11/20 24 06/11/2024 CBC W/DIF F absolute monocytes 0.4 10'3/ uL 0.2-1. 0 Not Available [facility] (Lab) [address], [place], [address], 06/12/2024 11:33:17 06/11/20 24 06/11/2024 CBC W/DIF F absolute eosinophils 0.1 10'3/ uL 0.0-0. 6 Not Available [facility] (Lab) [address], [place], [address], 06/12/2024 11:33:17 06/11/20 24 06/11/2024 CBC W/DIF F absolute basophils 0.0 10'3/ uL 0.0-0. 3 Not Available [facility] (Lab) [address], [place], [address], 06/12/2024 11:33:17 06/11/20 24 06/11/2024 CBC W/DIF F absolute immature granulocytes 0.0 10'3/ uL 0.00-0 .10 06/12 2:58 AM: P indic ates parti al resul ts on a panel have been relea sed. Addit ional resul ts will follo w. 06/12 2:58 AM: This resul t has been final verif ied. No addit ional or caba ed resul ts are expec lion. Not Available [facility] (Lab) [address], [place], [address], 06/12/2024 11:33:17 06/11/20 24 06/11/2024 CMP(C OMPRE HENSI VE METAB OLIC PANEL ) sodium 135 mmol/ L 133-14 6 Not Available [facility] (Lab) [address], [place], [address], 06/12/2024 11:33:18 06/11/20 24 06/11/2024 CMP(C OMPRE HENSI VE METAB OLIC PANEL ) potassium 3.9 mmol/ L 3.5-5. 1 Not Available [facility] (Lab) [address], [place], [address], 06/12/2024 11:33:18 06/11/20 24 06/11/2024 CMP(C OMPRE HENSI VE METAB OLIC PANEL ) chloride 101 mmol/ L 98-107 Not Available [facility] (Lab) [address] [place], [address], 06/12/2024 11:33:18 06/11/20 24 06/11/2024 CMP(C OMPRE HENSI VE METAB OLIC PANEL ) carbon dioxide 24 mmol/ L 21-31 Not Available [facility] (Lab) [address], [place], [address], 06/12/2024 11:33:18 06/11/20 24 06/11/2024 CMP(C OMPRE HENSI VE METAB OLIC PANEL ) anion gap 10 mmol/ L 4-13 Not Available [facility] (Lab) [address], [place], [address], 06/12/2024 11:33:18 06/11/20 24 06/11/2024 CMP(C OMPRE HENSI VE METAB OLIC PANEL ) blood urea nitrogen 7 mg/dL 7-25 Not Available [facility] (Lab) [address], [place], [address], 06/12/2024 11:33:18 06/11/20 24 06/11/2024 CMP(C OMPRE HENSI VE METAB OLIC PANEL ) creatinine 0.88 mg/dL 0.60-1 .30 Not Available [facility] (Lab) [address], [place], [address], 06/12/2024 11:33:18 06/11/20 24 06/11/2024 CMP(C OMPRE HENSI VE METAB OLIC PANEL ) egfrcr (CKD-epi 2020) >90 mL/mi n/1.7 3_m2 >=60 Not Available [facility] (Lab) [address], [place], [address], 06/12/2024 11:33:18 06/11/20 24 06/11/2024 CMP(C OMPRE HENSI VE METAB OLIC PANEL ) calcium 9.6 mg/dL 8.3-10 .5 Not Available [facility] (Lab) [address], [place], [address], 06/12/2024 11:33:18 06/11/20 24 06/11/2024 CMP(C OMPRE HENSI VE METAB OLIC PANEL ) glucose 77 mg/dL 70-100 Not Available [facility] (Lab) [address], [place], [address], 06/12/2024 11:33:18 06/11/20 24 06/11/2024 CMP(C OMPRE HENSI VE METAB OLIC PANEL ) protein, total 7.5 g/dL 6.4-8. 3 Not Available [facility] (Lab) [address], [place], [address], 06/12/2024 11:33:18 06/11/20 24 06/11/2024 CMP(C OMPRE HENSI VE METAB OLIC PANEL ) albumin 4.2 g/dL 3.5-5. 0 Not Available [facility] (Lab) [address], [place], [address], 06/12/2024 11:33:18 06/11/20 24 06/11/2024 CMP(C OMPRE HENSI VE METAB OLIC PANEL ) ALT 31 units /L 9-43 Not Available [facility] (Lab) [address], [place], [address], 06/12/2024 11:33:18 06/11/20 24 06/11/2024 CMP(C OMPRE HENSI VE METAB OLIC PANEL ) alkaline phosphatase 43 units /L 34-104 Not Available [facility] (Lab) [address], [place], [address], 06/12/2024 11:33:18 06/11/20 24 06/11/2024 CMP(C OMPRE HENSI VE METAB OLIC PANEL ) AST 24 units /L 13-39 Not Available [facility] (Lab) [address], [place], [address], 06/12/2024 11:33:18 06/11/20 24 06/11/2024 CMP(C OMPRE HENSI VE METAB OLIC PANEL ) bilirubin, total 1.0 mg/dL 0.2-1. 2 Not Available [facility] (Lab) [address], [place], [address], 06/12/2024 11:33:18 06/11/20 24 06/11/2024 URIC ACID uric acid 5.9 mg/dL 2.3-6. 6 Not Available [facility] (Lab) [address], [place], [address], 06/12/2024 11:33:18 06/11/20 24 06/11/2024 HEPAT ITIS C ANTIB DOUGLAS SCREE N, REFLE X TO CONFI RMATI ON hepatitis C antibody Non-re active non-re active Antib odies to HCV Not Detec lion, does not exclu de the possi bilit y of expos ure to HCV. Not Available [facility] (Lab) [address], [place], [address], 06/12/2024 11:33:19 06/11/20 24 06/11/2024 HEPAT ITIS B SURFA CE ANTIG EN hepatitis B surface antigen Non-re active non-re active This assay was perfo rmed using [employer] ratio n reage nts and test kits. Value s obtai mark with other assay metho ds or kits canno t be used inter caba eably . Not Available [facility] (Lab) [address], [place], [address], 06/12/2024 11:33:19 06/11/20 24 06/11/2024 HEMOG LOBIN A1C hemoglobin A1C 6.0 % 4.0-5. 6 high The [facility] n recom mends that a prima ry goal of thera py danielle d be a HBA1C of < 7% and that physi cians shoul d reeva luate the treat ment regim en in patie nts with HBA1C value s consi stent ly > 8%. <5.7% Josefina l 5.7 - 6.4% Incre ased risk for diabe mary grace >=6.5 % Diagn ostic of diabe mary grace <7.0% Goal of thera py >8.0% Actio n sugge sted Not Available [facility] (Lab) [address], [place], [address], 06/12/2024 11:33:19 06/11/20 24 06/11/2024 HIV 1/2 ANTIG EN/AN TIBOD Y, REFLE X CONFI RMATI ON HIV antigen/anti body Nonrea ctive nonrea ctive HIV-1 antig en and HIV-1 /HIV- 2 antib odies were not detec lion. No labor atory evide nce of HIV infec tion. Not Available [facility] (Lab) [address], [place], [address], 06/12/2024 11:33:20 06/11/20 24 06/11/2024 RUBEL LA IGG ANTIB DOUGLAS, QUANT rubella antibodies, IgG Reacti ve reacti ve Not Available [facility] (Lab) [address], [place], [address], 06/12/2024 11:33:20 06/11/20 24 06/11/2024 RUBEL LA IGG ANTIB DOUGLAS, QUANT rubella antibodies, IgG quant 66.9 IU/mL >=10 Non-r eacti ve (Non- Immun e) <10 IU/mL React kriss (Immu ne) > or = 10 IU/mL Not Available [facility] (Lab) [address], [place], [address], 06/12/2024 11:33:20 06/11/20 24 06/11/2024 TYPE/ RH/SC REEN ABO/Rh type O POS Not Available [facility] (Lab) [address], [place], [address], 06/12/2024 11:33:21 06/11/20 24 06/11/2024 TYPE/ RH/SC REEN antibody screen NEG Not Available [facility] (Lab) [address], [place], [address], 06/12/2024 11:33:21 06/11/20 24 06/11/2024 TYPE/ RH/SC REEN exp date 2023 23:59 Not Available [facility] (Lab) [address], [place], [address], 06/12/2024 11:33:21 06/11/20 24 06/11/2024 RPR SCREE N, REFLE X TITER /CONF IRMAT ION RPR screen Nonrea ctive nonrea ctive Not Available [facility] (Lab) [address], [place], [address], 06/12/2024 11:33:21 06/11/20 24 06/11/2024 CULTU RE: URINE result report SEE RESULT S BELOW abnormal Test: Cultu re: Urine Speci men Sourc e: Urine - Clean Catch Speci men Type: Urine Speci men Date: 06/11 1332 Resul t Date: 06/13 1223 Resul t Statu s: Final resul t Abnor mal: Yes Resul ting Lab: [facility] [address] [facility] [address] Tel: CULTU RE ----- ----- ----- --- 10,00 0-25, 000 CFU/m l Strep tococ cus agala ctiae (Grou p B) (Abno rmal) Strep tococ cus agala ctiae (Beta strep Group B Strep ) remai ns unive rsall y susce ptibl e to penic illin , cefaz bentley and vanco mycin . If clind amyci n is being consi dered for intra partu m proph ylaxi s, pleas e conta ct the lab withi n 5 days. Not Available [facility] (Lab) [address], [place], [address], 06/13/2024 13:26:17 08/06/19 25 08/06/2024 GTT - GESTA LO L SCREE N, ACOG OB glucose, 1 hour screen 166 mg/dL 70-135 high Not Available [facility] (Lab) [address], [place], [address], 08/07/2024 06:32:55 08/15/19 25 08/15/2024 GTT - GESTA LO L, 3 HOUR, ACOG OB glucose, fasting (GTT) CANCEL LED Never recei kirsten into lab Not Available [facility] (Lab) [address] [place], [address], 08/24/2024 23:59:01 08/15/19 25 08/15/2024 GTT - GESTA LO L, 3 HOUR, ACOG OB glucose, GTT 1HR CANCEL LED Never recei kirsten into lab Not Available [facility] (Lab) [address], [place], [address], 08/24/2024 23:59:01 08/15/19 25 08/15/2024 GTT - GESTA LO L, 3 HOUR, ACOG -glucose,2 hour (GTT) CANCEL LED Never recei kirsten into lab Not Available [facility] (Lab) [address] [place], [address], 08/24/2024 23:59:01 08/15/19 25 08/15/2024 GTT - GESTA LO L, 3 HOUR, ACOG -glucose, GTT 3HR CANCEL LED Never recei kirsten into lab Not Available [facility] (Lab) [address] [place], [address], 08/24/2024 23:59:01 06/11/20 24 06/11/2024 US, obste tric, nucha l trans lucen cy No observ ation record ed. [facility] [address], [place], [address], 06/11/2024 13:11:53 06/11/20 24 06/11/2024 US, obste tric, nucha l trans lucen cy No observ ation record ed. [email or web address] [facility], [place], [address], 06/12/2024 14:13:26 08/06/19 25 08/06/2024 US, obste tric, 2nd or 3rd trime ster No observ ation record ed. [email or web address] [place] [address], [place], [address], 08/06/2024 13:26:37 08/06/19 25 08/06/2024 US, obste tric, follo w-up No observ ation record ed. [email or web address] [address], [place], [address], 08/12/2024 22:27:50 09/04/19 25 09/03/2024 US, obste tric, follo w-up No observ ation record ed. [email or web address] [place] [address], [place], [address], 09/03/2024 18:45:58 09/04/19 25 09/03/2024 US, obste tric, follo w-up No observ ation record ed. [email or web address] [address], [place], [address], 09/05/2024 17:52:00 09/04/19 25 09/03/2024 elect rocar diogr am No observ ation record ed. [email or web address] [facility] [address], [place], [address], 09/08/2024 09:43:37 09/06/19 25 09/04/2024 elect rocar diogr am No observ ation record ed. [address] (Pulmonary) [address], [place], [address], 09/05/2024 21:14:58 09/12/19 25 09/11/2024 US, obste tric, follo w-up No observ ation record ed. [email or web address] [facility] [address], [place], [address], 09/17/2024 23:01:11 Result Notes None recorded. Problems Name Problem SNOMED Code Status Onset Date Resolution Date Notes Provider Name and Address Organization Details Recorded Time 97997432 Active 2023 Romi payne, [facility] 4 12:48:54 Essential hypertens ion 24527255 Active labetalol 600mg TID, 32 week testing, 37 week delivery CHAPO DAUGHERTY MD [address], [place], [address], [facility] 5 12:26:42 Prediabet es 265853646 Active A1c 6.0%, early 1h GCT at 20 weeks Failed early 1hr gtt sched 3hr gtt unable to complete 3hr gtt - Checking BS SUSIE Myranda Lion elmer, [facility] 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 5 09:37:09 Alpha thalassem ia 90248498 Active + carrier low risk Myranda Lion [facility], [facility] 5 09:41:56 Alpha thalassem ia [id number] Active + carrier low risk Myranda Lion elmer, [facility] 5 09:41:56 Hypertens kriss disorder 47445899 Active 2024 Valeria Rivera null, [facility] 5 12:28:09 Choroid plexus cyst 451484448 Active resolved Yamileth Villegas CNM [address], [place], [address], [facility] 5 12:40:02 Gestation al diabetes mellitus 79468370 Active 2024 BS QID, serial growth DT referral faxed to [facility] 08/20 DT on 08/25 Lantus pen 5u @ bedtime 08/26 increased to 8u @ HS 09/02/24 increase to 12u @ HS 7 increase to 15u @HS Scheduled [facility] 09/11 9:15 Level II US & Consult on 10/07 [facility] managing bs as of 09/08/24 increased lantus 18u @ HS and added 6u novolog TID breakfast , lunch and dinner Myranda payne [facility] 5 16:52:26 Gestation al diabetes mellitus 40575376 Active 2024 BS QID, serial growth DT referral faxed to [facility] 08/20 DT on 08/25 Lantus pen 5u @ bedtime 08/26 increased to 8u @ HS 09/02/24 increase to 12u @ HS 7 increase to 15u @HS Scheduled [facility] 09/11 9:15 Level II US & Consult on 10/07 [facility] managing bs as of 09/08/24 increased lantus 18u @ HS and added 6u novolog TID breakfast , lunch and dinner Myarnda payne [facility] 5 16:52:26 Body mass index 40+ - severely obese [id number] Active BMI 45 [facility] 5 13:08:36 Body mass index 40+ - severely obese 276301793 Active BMI 45 Myranda payne [facility] 5 13:08:36 Notes:Chronic Hypertension - 05/21/24 MM increased labetalol to 600mg TID Some problems listed in Document: #[id number] could not be added to this patient's chart. Please review this document and add these problems to the patient's chart manually as needed. Problem Notes None recorded. Procedures Surgical History Date Name Laterality Status Provider Name and Address Organization Details Recorded Time 03/02/20 24 extraction of wisdom tooth completed Valeria Rivera [facility] 08/06/2024 12:30:03 12/19/19 22 Cholecystectomy completed Romi Xiao [facility] 05/07/2024 16:37:13 Imaging Results Imaging Date Name Status LastModified by Organization Details LastModified Time 06/11/2024 US, obstetric, nuchal translucency completed [email or web address] [facility] [address], [place], [address], 06/11/2024 13:11:53 06/11/2024 US, obstetric, nuchal translucency completed [email or web address] [facility] [address], [place], [address], 06/12/2024 14:13:26 08/06/2024 US, obstetric, 2nd or 3rd trimester completed [email or web address] [facility] [address], [place], [address], 08/06/2024 13:26:37 08/06/2024 US, obstetric, follow-up completed [email or web address] [facility] [address], [place], [address], 08/12/2024 22:27:50 09/03/2024 US, obstetric, follow-up completed [email or web address] [facility] [address], [place], [address], 09/03/2024 18:45:58 09/03/2024 US, obstetric, follow-up completed [facility] [address], [place], [address], 09/05/2024 17:52:00 09/03/2024 electrocardiogram completed [email or web address] [facility] [place] [address], [place], [address], 09/08/2024 09:43:37 09/04/2024 electrocardiogram completed [facility] ([facility]) [address], [place], [address], 09/05/2024 21:14:58 09/11/2024 US, obstetric, follow-up completed [email or web address] [facility] [address], [place], [address], 09/17/2024 23:01:11 Procedure Notes None recorded. Medical Equipment None Reported. Allergies No known drug allergies Medications Name Sig Start Date Stop Date Status Note LastModified by Organization Details LastModified Time amoxicillin 500 mg capsule TAKE 1 CAPSULE BY MOUTH THREE TIMES DAILY UNTIL GONE 05/07 completed Not Available Not Available Not Available labetalol 200 mg tablet TAKE 3 TABLETS BY MOUTH THREE TIMES DAILY DIRECTED 2024 active Not Available Not Available Not Avai lable ibuprofen 800 mg tablet TAKE 1 TABLET [...] and Address Organization Details Last Updated DateTime 07/08/2024 154.94 cm 46.5 kg/m2 978504.7 2302 g 122 mm[Hg] 79 mm[Hg] Romi Xiao [facility] 12:08:08 Date Recorded Body weight Body mass index (BMI) Body height Systolic blood pressure Diastolic blood pressure Provider Name and Address Organization Details Last Updated DateTime 08/06/2024 957304.8 6961 g 47.8 kg/m2 154.94 cm 113 mm[Hg] 72 mm[Hg] Valeria Rivera [facility] 12:26:45 Date Recorded Body height Body mass index (BMI) Body weight Systolic blood pressure Diastolic blood pressure Provider Name and Address Organization Details Last Updated DateTime 09/03/2024 154.94 cm 46.9 kg/m2 468065.9 1 g 136 mm[Hg] 80 mm[Hg] Valeria Rivera [facility] 12:04:13 Social History Question Answer Notes LastModified by Organizat ion Details LastModified Time Tobacco Smoking Status Unknown If Ever Smoked Valeria payne [facility] 08/06/2024 12:29:37 Do You Have An Advance Directive? No [email or web address] Information not available 05/07/2024 What Is Your Level Of Alcohol Consumption? None [email or web address] Information not available 09/03/2024 If You Are , What Was Your Level Of Alcohol Consumption Prior To ? Occasional [email or web address] Information not available 08/06/2024 How Many Years Have You Consumed Alcohol? 6 [email or web address] Information not available 05/07/2024 Are You Blind Or Do You Have Difficulty Seeing? No [email or web address] Information not available 05/07/2024 What Is Your Level Of Caffeine Consumption? Moderate [email or web address] Information not available 05/07/2024 How Much Tobacco Do You Chew? None [email or web address] Information not available 05/07/2024 In The 14 Days Before Symptom Onset, Have You Had Close Contact With A Laboratory-confir med COVID-19 While That Case Was Ill? No [email or web address] Information not available 05/07/2024 In The 14 Days Before Symptom Onset, Have You Had Close Contact With A Person Who Is Under Investigation For COVID-19 While That Person Was Ill? No Information not available 05/07/2024 Have You Been To An Area Known To Be High Risk For COVID-19? No [email or web address] Information not available 05/07/2024 Are You Deaf Or Do You Have Serious Difficulty Hearing? No [email or web address] Information not available 05/07/2024 What Type Of Diet Are You Following? REGULAR [email or web address] Information not available 05/07/2024 What Is The Highest Grade Or Level Of School You Have Completed Or The Highest Degree You Have Received? 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 No [email or web address] Information not available 05/07/2024 Do You Use Protection During Sex? No [email or web address] Information not available 05/07/2024 Do You Use Your Seat Belt Or Car Seat Routinely? Yes [email or web address] Information not available 05/07/2024 Do You Have Smoke And Carbon Monoxide Detectors In Your Home? Yes Information not available 05/07/2024 How Much Tobacco Do You Smoke? No [email or web address] Information not available 05/07/2024 Do You Feel Stressed (tense, Restless, Nervous, Or Anxious, Or Unable To Sleep At Night)? [id number] [email or web address] Information not available 05/07/2024 Do You Use Any Illicit Or Recreational Drugs? No [email or web address] Information not available 05/07/2024 Do You Use Sunscreen Routinely? No [email or web address] Information not available 05/07/2024 Has Tobacco Cessation Counseling Been Provided? No [email or web address] Information not available 08/06/2024 Have You Used IV Drugs? No [email or web address] Information not available 05/07/2024 Do You Or Have You Ever Used Any Other Forms Of Tobacco Or Nicotine? No [email or web address] Information not available 08/06/2024 Sex: Unknown Functional Status Question Answer Note LastModified by Organizat ion Details LastModified Time Do you have difficulty walking or climbing stairs? No [email or web address] Information not available 08/06/2024 Are you able to walk? YESWOREST [email or web address] Information not available 05/07/2024 Are you able to care for yourself? Yes [email or web address] Information not available 08/06/2024 Do you have difficulty dressing or bathing? No [email or web address] Information not available 08/06/2024 What is your exercise level? Moderate [email or web address] Information not available 05/07/2024 Mental Status None recorded. Family History Relationship Description Onset Age of this Age Resolved Age Notes LastModified by Organization Details LastModified Time Maternal Aunt Diabetes mellitus Not available 2023 16:37:12 Mother High risk [email or web address] Not available 2023 16:37:49 Medical History Condition Response Allergies (Food, seasonal, environmental ) N Other N Drug/Latex Allergies/Reactions N Blood Transfusion N Breast Cancer N Dermatologic Disorders N Lung Disease N Defects or Inherited Disease Y Breast Problem N Gestational Diabetes Y Hematologic disorders N Anesthesia Complications N History of STI N Deep Vein Thrombosis N Polycystic ovary syndrome N Anxiety Disorder N Autoimmune disease Y Arthritis N Polyps N Infertility N Acid Reflux (GERD) N History of abnormal pap N Cancer N Varicosities N Stroke N Neurologic/Epilepsy N Endometriosis N High Cholesterol N Fibromyalgia N Headaches N Kidney Disease N Heart Problems N Thyroid Problems N Kidney or Bladder Problems N GI Problems N Eating Disorder [...] SNOMED-CT Code Diagnosis ICD10 Code Diagnosis Note [id number] Poornima Velasquez [facility] [address],[place] [address] 05/07/2024 15:41:58 05/07/2024 16:43:29 [id number] CHAPO DAUGHERTY MD [facility] [address],[place] [address] 05/07/2024 15:42:57 05/08/2024 10:53:36 test positive 346195265 Z32.01 1. Exam today within normal limits.2. Ultrasound today confirms GA and viability. EDC . GC/Emmett a testing done: will f/u as indicated. 4. ACOG guidelines and plan of care for reviewed with patient. All questions answered.5 . Return to office at 12 weeks for new OB visit6. Will need new OB labs at next visit.7. Genetic screening: desires. Chronic hy pertension complicating AND/OR reason for care during 97575899 O16.9 - diagnosed following G1 - previously on amlodipine , transition ed to labetalol 200 TID with - tolerating well, BP 140s/70s-9 0s- discussed daily ASA ppx- will draw baseline labs with new OB labs Past pregn glen history of pre-eclampsia 5946854066 72367 Z87.59 - delivered at 34 weeks for severe preeclamps ia- ASA ppx discussed [id number] China Moss [facility] [address],[facility] [place] [place] [address] 06/11/2024 11:50:43 06/11/2024 12:45:11 screening 865964758 Z36.82 Z3A.12 [id number] Romi Xiao [facility] [address],[place] [address] 06/11/2024 11:51:23 06/11/2024 13:55:53 Chronic hypertension complicating AND/OR reason for care during 90711784 O16.9 - asymptomat ic- well controlled with labetalol 400mg TID- baseline labs ordered at 12 weeks Gestation period, 12 weeks 49420268 Z3A.12 [id number] CHAPO DAUGHERTY MD [facility] [address],[place] [address] 07/08/2024 11:56:33 07/08/2024 12:48:49 Prediabetes in mother during 1829669391 5660673 R73.03 - A1c 6.0%- early 1h GCT Chronic hy pertension complicating AND/OR reason for care during 88729375 O16.9 - asymptomat ic- well controlled with labetalol 400mg TID- baseline labs wnl Gestation period, 16 weeks 02172174 Z3A.16 [id number] [facility] [address],[place] [address] 08/06/2024 11:00:45 08/06/2024 12:37:01 screening for malformation 546543258 Z36.3 Z3A.20 [id number] [facility] [address] [place] [address] 08/06/2024 11:04:02 08/06/2024 12:55:16 Gestation period, 20 weeks 13664720 Z3A.20 [id number] [facility] [address] [place] [address] 09/03/2024 11:02:57 09/03/2024 11:48:18 Gestational diabetes mellitus 79906360 O24.414 O35.8XX0 O10.012 O99.212 Z3A.24 [id number] [facility] [address] [address] 09/03/2024 11:04:18 09/03/2024 12:38:37 Gestation period, 24 weeks 975542640 Z3A.24 Type 2 lenka betes mellitus 25828620 E11.9 Chronic hy pertension complicating AND/OR reason for care during 15421651 O16.9 Health Concerns Section Related Observation LastModified by Organization Detai ls LastModified Time None Recorded Concern Status LastModified by Organization Details LastModified Time None Recorded Advance Directives Directive N: Payers Encounter Date Sequence Insurance Name Policy Number Policy Singh Covered Member ID Singh Member ID Guarantor Name 07/08/2024 1 *SELF PAY* Te una Acosta 08/06/2024 1 [employer] [id number] Khanh Acosta [id number] Cheryl Acosta 08/06/2024 1 [id number] [id number] Khanh Acosta [id number] Cheryl Acosta 09/03/2024 1 [facility] Cheryl Acosta [id number] Cheryl Acosta 09/03/2024 1 [facility] Cheryl Acosta [id number] [facility] Acosta OBGyn Episode Ob Episode Information Episode Created Date Number of Fetuses Patient Bloodtype Patient rh Status Prepregnancy Weight lbs Domestic Partner Domestic Partner Phone Father Name Processing Associate Status 05/07/20 24 1 CLOSED Fetus Data First Name Last Name Admitted to NICU Weight (g) Sex Living Outcome Pediatric Complications Fetus ID Race Codes Race Delivery Type , Spontane ous [id number] Aaron Calculation Initial Aaron Date Initial Exam Date Initial Exam Provider Initial Ultrasound Date Last Menstrual Period Date Ultra Sound Weeks Gestation 0 Eighteen To Twenty Week Aaron Update Ultra Sound Date Fundal Height At Umbil Quickening Date Ultra Sound Latest Weeks Gestation Final Aaron Confirmed By Final Aaron Confirmed Date Final Aaron Date Ultra Sound Latest Days Gestation 0 0 Menstrual History Last Menstrual Date Menses Monthly On Bcp Conception Prior Menses Frequency Hcg Plus Date Menarche Onset Age Delivery Information Delivery Date Delivery Type Labor Anesthesia Weeks Gestation Incision Type Labor Labor Length Hrs Delivered By Post Complications Tubal Sterilization Discharge Date Comments Discharge Information Feeding Method Contraceptive Method Maternal HG B and HCT Levels Ob Episode Information Episode Created Date Number of Fetuses Patient Bloodtype Patient rh Status Prepregnancy Weight lbs Domestic Partner Domestic Partner Phone Father Name Processing Associate Status 06/11/20 24 1 O Positive 244 OPEN Fetus Data First Name Last Name Admitted to NICU Weight (g) Sex Living Outcome Pediatric Complications Fetus ID Race Codes Race Delivery Type [id number] Problems Problem Notes LVEIF Scheduled [facility] 9:15 Level II US & Consult on 10/07 Problem Name Start Date End Date Resolution Snomed Code Not e Choroid plexus cyst [id number] resolved Gestational diabetes mellitus 08/20/2024 81889194 BS QID, serial growth DT referral faxed to [facility] 08/20DT on 08/25 Lantus pen 5u @ bedtime 08/26 increased to 8u @ HS 09/02/24 increase to 12u @ HS 09/05 increase to 15u @HSScheduled [facility] 09/11 9:15 Level II US & Consult on 10/07[facility] managing bs as of 09/08/24 increased lantus 18u @ HS and added 6u novolog TID breakfast, lunch and dinner Body mass index 40+ - severely obese 580712935 BMI 45 Essential hypertension 5389441 0 labetalol 600mg TID, 32 week testing, 37 week delivery 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 356583701 redraw for ref lux to baby - pt discuss at OB appt Alpha thalassemia [id number] + carrier low risk Prediabetes 417094871 A1c 6.0% , early 1h GCT at [...] Date Ultra Sound Latest Days Gestation 0 [email or web address] 06/11/2024 12/22/19 25 0 Pre- Flowsheet Flowsheet Date 06/11/2024 Magallanes Score Blood Edema Fundus Height Fundus Units Glucose Ketones Leukocytes Nitrite Labor Signs Protein Cervic Dilation Cervic Effacement Cervic Station Type Weight in lbs Pre/Post Dialysis Refused Weight 244.286943020985 BP Diastolic BP Location Tested BP Systolic BP Type 87 L arm 133 sitting Fetus Heart Rate Present A 151 Fetus Movement Comments Patient presents to [facility] care. PMH significant for chronic HTN, well [...] Type Weight in lbs Pre/Post Dialysis Refused 246.706915820577 BP Diastolic BP Location Tested BP Systolic [...] Type Weight in lbs Pre/Post Dialysis Refused 253.985314365019 BP Diastolic BP Location Tested BP Systolic BP Type 72 113 Fetus Heart Rate Present Fetus Movement A Yes Comments 600mg labetalol TID, doing w ell, reviewed US, LVEIF, unilateral tree marker, 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, taking BASA daily, [...] Weight in lbs Pre/Post Dialysis Refused Weight 248.627116631734 BP Diastolic BP Location Tested BP Systolic BP Type 80 136 Fetus Heart Rate Present Fetus Movement A Yes Comments Patient trouble breathing, p ain, back pain and discharge. discussed sxs with dr. daugherty, plan stat EKG reviewed precautions, just increased insulin yesterday will have rn f/u on sunday. note given to d/c lifting over 25 lbs, plan f/u at [facility] for diabetes, lynsey is off it seems [...] Domestic Partner Domestic Partner Phone Father Name Processing Associate Status 05/07/20 24 1 CLOSED Fetus Data First Name Last Name Admitted to NICU Weight (g) Sex Living Outcome Pediatric Complications Fetus ID Race Codes Race Delivery Type Prematur e [id number] Vaginal Delivery Aaron Calculation Initial Aaron Date Initial Exam Date Initial Exam Provider Initial Ultrasound Date Last Menstrual Period Date Ultra Sound Weeks Gestation 0 Eighteen To Twenty Week Aaron Update Ultra Sound Date Fundal Height At Umbil Quickening Date Ultra Sound Latest Weeks Gestation Final Aaron Confirmed By Final Aaron Confirmed Date Final Aaron Date Ultra Sound Latest Days Gestation 0 0 Menstrual History Last Menstrual Date Menses Monthly On Bcp Conception Prior Menses Frequency Hcg Plus Date Menarche Onset Age Delivery Information Delivery Date Delivery Type Labor Anesthesia Weeks Gestation Incision Type Labor Labor Length Hrs Delivered By Post Complications Tubal Sterilization Discharge Date Comments 1 Discharge Information Feeding Method Contraceptive Method Maternal HG B and HCT Levels
[2024-09-27 20:42] LABS: Basophils Percent Auto 0.3 % (0.2-1.2); Eosinophils Absolute Auto 0.1 K/mm3 (0-0.3); Hematocrit 31.1 % (37.0-47.0); Hemoglobin 10.5 g/dL (12.0-15.0); Immature Granulocyte Absolute 0.02 K/mm3 (0.00-0.031); Immature Granulocyte Percent A 0.3 % (0-0.5); Lymphocytes Absolute Auto 1.41 K/mm3 (0.9-3.2); Mean Corpuscular HGB Conc 33.8 g/dl (32-36); Mean Corpuscular Hemoglobin 28.1 pg (26-34); Mean Corpuscular Volume 83.2 fl (80-100); Mean Platelet Volume 10.1 fl (7.4-10.4); Monocytes Absolute Auto 0.6 K/mm3 (0.1-0.6); Monocytes Percent Auto 9.2 % (2.6-8.5); Neutrophils Absolute Auto 4.1 K/mm3 (1.3-6.7); Neutrophils Percent Auto 66.2 % (45.5-73.1); Platelet Count Result 235 k/mm3 (150-375); Red Blood Count 3.74 M/mm3 (4.2-5.4); Red Cell Distribution Width 12.6 % (11.5-14.5); White Blood Count 6.1 K/mm3 (4.5-10.0)
[2024-09-27 20:46] VITALS: BP 137/64; PULSE 74
[2024-09-27 20:49] LABS: Add Urine Microscopic? YES; Appearance Urine Cloudy (Clear); Bacteria Urine 1+ /hpf; Bilirubin Urine Negative (Negative); Blood Urine Negative (Negative); Color Urine Yellow (Yellow); Glucose Urine UA Negative (Negative); Ketones Urine Trace mg/dL (Negative); Leukocyte Esterase Ur 1+ LEU/UL (Negative); Nitrate Urine Negative (Negative); Non Pathogenic Casts 0-2; Protein Urine Trace mg/dL (Negative); RBC Urine 0-2 /hpf (0-2); Specific Grav Ur 1.022 (1.001-1.035); Squamous Epithelial Cell Urine Moderate /hpf (Few); WBC Urine 21-50 /hpf (0-3); pH Urine 5.5 (5.0-9.0)
[2024-09-27 20:51] LABS: Creatinine Urine 206.4 mg/dL
[2024-09-27 20:52] LABS: Total Protein Urine Random < 5 mg/dL; Ur Ttl Prot Creatinine Ratio < 0.02 mg/mg (0-0.20)
[2024-09-27 20:54] LABS: Alanine Aminotransferase 42 U/L (6-35); Albumin Level 3.9 g/dL (3.5-5.1); Alkaline Phosphatase 62 U/L (38-126); Anion Gap 9 mmol/L (4-12); Aspartate Amino Transferase 31 U/L (14-36); Bilirubin,Total 0.9 mg/dL (0.2-1.3); Blood Urea Nitrogen 9 mg/dL (7-17); Calcium 9.6 mg/dL (8.4-10.2); Carbon Dioxide 22 mmol/L (22-30); Chloride 105 mmol/L (98-107); Estimated Glomerular Filt Rate > 60; Glucose 83 mg/dL (65-110); Potassium 3.6 mmol/L (3.4-5.0); Sodium 136 mmol/L (137-145); Uric Acid 5.2 mg/dL (2.5-7.5)
[2024-09-27 21:01] VITALS: BP 130/62; PULSE 76
[2024-09-27 21:16] VITALS: BP 132/68; PULSE 72
[2024-09-27 21:20] VITALS: BP 140/83; PULSE 73
[2024-09-27 21:31] VITALS: BP 145/80; PULSE 74
[2024-09-27] MEDS: ACETAMINOPHEN/BUTALBITAL/CAFFEINE 325-50-40 MG TABLET (FIORICET) 1 TAB PO (21:38)
--- NOTE | 2024-09-27 21:45 | PC.NURSE ---
Pt discharged home undelivered in stable condition per order from Dr. Kirk. Discharge instructions explained. Pre-e handsouts given. All questions and concerns answered. Pt ambulated out of department with all belongings.
== END 2024-09-27 21:45 | disposition home or self-care (01) ==
LOC: ANHOBOP 20:12 → ANHOBPP 20:13
PROVIDERS: Visit Provider Obstetrics & Gynecology
DX: O13.9 Gestational [pregnancy-induced] hypertension without significant proteinuria, unspecified trimester (principal); Z3A.00 Weeks of gestation of pregnancy not specified
CPT/HCPCS: 36415; 59025; 80053; 81001; 82570; 84156; 84550; 85025; A9270

== ENCOUNTER 2024-11-14 15:45 | Observation (INO) | payer OTHER, SELFPAY ==
[2024-11-14] VITALS (22 sets, daily range): BP systolic 129–164; BP diastolic 65–120; PULSE 73–102; TEMP 36.9; O2SAT 97–100; BMI 45.7
--- OUTSIDE RECORDS SUMMARY | 2024-11-14 14:38 | XMS_ITS | Clinical Summary ---
Author Organization [facility] Address [address] [place] [address] Phone Care Team Providers Care Area Field Person Name Role Phone Unavailable Primary Care Provider Unavailabl e Allergies No known active allergies Medications Insulin [place], Disposable, (BD Sarah 2nd Gen Pen Needle) 32 gauge x 5/32 NeedleIndicati ons:Insulin controlled gestational diabetes mellitus (GDM) during , antepartum Use 4 pen needles per day with insulin injection 100 Each 6 09/09/19 25 Active aspirin (Adult Aspirin Regimen) 81 mg Tablet, Delayed Release (E.C.) Take 81 mg by mouth daily. Active vit no.126-iron-fa (Classic ) 28 mg iron- 800 mcg Tablet Take 1 Tablet by mouth daily. Active Fioricet 50-300-40 mg capsule 1 Capsule every 4 hours as needed for Headaches. 09/30/19 25 Active labetaloL (NORMODYNE) 200 mg tablet Take 600 mg by mouth every 8 hours. Active acetaminophen (TYLENOL) 500 mg tablet Take 1,000 mg by mouth every 6 hours as needed for Pain. Active Dexcom G7 Sensor DeviceIndicati ons:Insulin controlled gestational diabetes mellitus (GDM) during , antepartum Change sensor every 10 days as directed 3 Each 9 10/08/19 25 Active insulin glargine (Lantus Solostar U-100 Insulin) 100 unit/mL pen syringeIndicat ions:Insulin controlled gestational diabetes mellitus (GDM) during , antepartum Inject 26 units SQ qHS. Max dose 50U/day 15 mL 10/18/19 25 Active insulin lispro (HumaLOG KwikPen Insulin) 100 unit/mL pen syringeIndicat ions:Insulin controlled gestational diabetes mellitus (GDM) during , antepartum Inject 8 Units by subcutaneous injection daily before breakfast AND 18 Units daily before lunch AND 12 Units daily before supper. Inject 6U SQ before breakfast, lunch and dinner. Max dose of 50U/day. 15 mL 10/29/19 25 Active insulin lispro (HumaLOG KwikPen Insulin) 100 unit/mL pen syringeIndicat ions:Insulin controlled gestational diabetes mellitus (GDM) during , antepartum Inject 6U SQ before breakfast, lunch and dinner. Max dose of 50U/day 15 mL 09/09/19 25 025 Discontinued insulin glargine (Lantus Solostar U-100 Insulin) 100 unit/mL pen syringeIndicat ions:Insulin controlled gestational diabetes mellitus (GDM) during , antepartum Inject 22 units SQ qHS. Max dose 50U/day 15 mL 10/08/19 25 025 Discontinued insulin lispro (HumaLOG KwikPen Insulin) 100 unit/mL pen syringeIndicat ions:Insulin controlled gestational diabetes mellitus (GDM) during , antepartum Inject 6 Units by subcutaneous injection daily before breakfast AND 16 Units daily before lunch AND 20 Units daily before supper. Inject 6U SQ before breakfast, lunch and dinner. Max dose of 50U/day. 15 mL 10/18/19 25 025 Discontinued insulin lispro (HumaLOG KwikPen Insulin) 100 unit/mL pen syringeIndicat ions:Insulin controlled gestational diabetes mellitus (GDM) during , antepartum Inject 6 Units by subcutaneous injection daily before breakfast AND 16 Units daily before lunch AND 10 Units daily before supper. Inject 6U SQ before breakfast, lunch and dinner. Max dose of 50U/day. 15 mL 10/18/19 25 025 Discontinued Active Problems Estimated Date of Delivery Comme nts Yes 12/21/2024 No known active problems Encounters Date Type Department Care Team Description 11/11/2024 8:47 AM CDT - 11/11/2024 11:59 PM CDT Hospital Encounter [facility] Maternal and Ground Floor [address] [place] [address] Mesfin Kirk MD Arrived Discharge Disposition: Home or Self Care 11/11/2024 External Device Data STL ABSTRACTION Provider, Abstract 11/11/2024 External Device Data STL ABSTRACTION Provider, Abstract 11/11/2024 External Device Data STL ABSTRACTION Provider, Abstract 11/10/2024 9:08 AM CDT - 11/10/2024 11:59 PM CDT Hospital Encounter [facility] and Ground Floor [address] [place] [place] [address] Christine Yanez MD Arrived Discharge Disposition: Home or Self Care 11/07/2024 Chart Note [facility] Maternal and Medicine - [facility] [place] [facility] [address] [facility] [place] [address] Aisha Herbert MD Gestational Diabetes 11/04/2024 External Device Data STL ABSTRACTION Provider, Abstract 11/03/2024 9:15 AM CDT - 11/03/2024 11:59 PM CDT Hospital Encounter [facility] M[facility] and Ground Floor [address] [place] [address] Christine Yanez MD Discharge Disposition: Home or Self Care 10/28/2024 11:30 AM CDT visit [facility] Maternal and Medicine - [facility] [place] [facility] [address] [facility] [place] [address] Aisha Herbert MD High risk , antepartum (Primary Dx); Insulin controlled gestational diabetes mellitus (GDM) in third trimester; Hypertension affecting in third trimester; Other obesity affecting in third trimester; History of pre-eclampsia; 32 weeks gestation of 10/28/2024 Chart Note [facility] Maternal and Medicine - [facility] [place] [facility] [address] [place] [address] Aisha Herbert MD Gestational Diabetes 10/27/2024 10:26 AM CDT - 10/27/2024 11:59 PM CDT Hospital Encounter [facility] Maternal and Ground Floor [address] [place] [address] Christine Yanez MD Discharge Disposition: Home or Self Care 10/27/2024 10:16 AM CDT - 10/27/2024 11:59 PM CDT Hospital Encounter [facility] Maternal and Ground Floor [address] [place] [address] Christine Yanez MD Discharge Disposition: Home or Self Care 10/17/2024 9:00 AM CDT Video Visit [facility] Maternal and Medicine - [facility] [place] [facility] [address] [facility] [place] [address] Insulin controlled gestational diabetes mellitus (GDM) in third trimester (Primary Dx); Insulin controlled gestational diabetes mellitus (GDM) during , antepartum 10/17/2024 Chart Note [facility] Maternal and Medicine - [facility] [place] [facility] [address] [facility] [place] [address] Aisha Herbert MD Gestational Diabetes 10/14/2024 2:05 PM CDT - 10/14/2024 11:59 PM CDT Hospital Encounter [facility] Maternal and Ground Floor [address] [place] [address] Christine Yanez MD Discharge Disposition: Home or Self Care 10/14/2024 External Device Data STL ABSTRACTION Provider, Abstract 10/14/2024 External Device Data STL ABSTRACTION Provider, Abstract 10/14/2024 External Device Data STL ABSTRACTION Provider, Abstract 10/10/2024 5:00 PM CDT Ancillary Procedure [facility] Obstetrics Emergency Department [address] [place] [address] Lauren Santiago MD 10/10/2024 4:12 PM CDT - 10/10/2024 6:10 PM CDT Emergency [facility] Obstetrics Emergency Department [address] [place] [address] Lauren Santiago MD Vaginal spotting (Primary Dx) Discharge Disposition: Home or Self Care 10/10/2024 Travel 10/07/2024 3:09 PM CDT - 10/07/2024 11:59 PM CDT Hospital Encounter [facility] Maternal and Ground Floor [address] [place] [place] [address] Khanh Arcos MD Discharge Disposition: Home or Self Care 10/07/2024 1:00 PM CDT Initial [facility] Maternal and Medicine - [facility] [place] [facility] [address] [place] [address] Sylvia Parnell MD Supervision of high risk in third trimester (Primary Dx); 29 weeks gestation of ; Gestational diabetes mellitus (GDM) in third trimester, gestational diabetes method of control unspecified 10/07/2024 Orders Only [facility] Maternal and Medicine - [facility] [place] [facility] [address] [place] [address] Sylvia Parnell MD Insulin controlled gestational diabetes mellitus (GDM) during , antepartum (Primary Dx) 10/07/2024 Orders Only [facility] Maternal Medicine [address] [place] [address] Emely Mendosa, RN Insulin controlled gestational diabetes mellitus (GDM) during , antepartum 10/07/2024 Chart Note [facility] Maternal and Medicine - [facility] [place] [address] [place] [address] Diabetes 09/29/2024 Chart Note [facility] Maternal and Medicine - [facility] [place] [facility] [address] [place] [address] Khanh Arcos MD Gestational Diabetes 09/22/2024 Abstract [facility] Maternal and Medicine - [facility] [place] [facility] [address] [place] [address] Jennifer Chase, JOHN 09/22/2024 Chart Note [facility] Maternal and Medicine - [facility] [place] [facility] [address] [place] [address] Sylvia Parnell MD Gestational Diabetes 09/17/2024 External Device Data STL ABSTRACTION Provider, Abstract 09/17/2024 External Device Data STL ABSTRACTION Provider, Abstract 09/16/2024 External Device Data STL ABSTRACTION Provider, Abstract 09/15/2024 Chart Note [facility] Maternal and Medicine - [facility] [place] [address] [place] [address] Lacey Hill MD Gestational Diabetes 09/12/2024 Chart Note [facility] Maternal and Medicine - [facility] [place] [facility] [address] [place] [address] Sylvia Parnell MD Gestational Diabetes 09/11/2024 9:15 AM CDT - 09/11/2024 11:59 PM CDT Hospital Encounter [facility] [address] [place] [address] Angel Villegas NP Discharge Disposition: Home or Self Care 09/09/2024 Telephone [facility] Maternal Medicine [address] [place] [address] José Iqbal MD Diabetes 09/05/2024 Chart Note [facility] Maternal and Medicine - [facility] [place] [facility] [address] [place] [address] Sylvia Parnell MD Gestational Diabetes 09/05/2024 Orders Only [facility] Maternal Medicine [address] [place] [address] Sylvia Parnell MD GDM, class A1 (Primary Dx) 09/04/2024 Abstract [facility] Maternal and Medicine Medical [place] [address] [place] [address] Erin Diaz RN 09/04/2024 Orders Only [facility] Ground [facility] [address] [facility] [address] [place] [address] Angel Villegas NP Chronic hypertension in (Primary Dx); Gestational diabetes mellitus (GDM), antepartum, gestational diabetes method of control unspecified from Last 3 Months Family History Medical History Relation Name Comments Healthy Daughter Relation Name Status Comments Daughter Alive Social History Tobacco Use Types Packs/Day Years Used Date Smoking Tobacco: Never Smokeless Tobacco: Never Tobacco Cessation:Counseling Given: Yes Alcohol Use Standard Drinks/Week Comments Not Currently 0 (1 standard drink = 0.6 oz pur e alcohol) Feeling Safe Answer Date Recorded Are you in a relationship wi th someone who hurts you emotionally and/or physically? No 10/10/2024 Estimated Date of Delivery Comme nts Yes 12/21/2024 Sex and Gender Information Value Date Recorded Sex Assigned at Not on file Legal Sex Female 7:31 AM [employer] Gender Identity Not on file Sexual Orientation Not on file Last Filed Vital Signs Vital Sign Reading Time Taken Comments Blood Pressure 120/78 10/28/2024 11:33 AM CDT Pulse 100 10/28/2024 11:33 AM CDT Temperature 37.2 C (99 F) 10/10/2024 3:19 PM CDT Respiratory Rate 18 10/10/2024 5:39 PM CDT Oxygen Saturation 98% 10/28/2024 11:33 AM CDT Inhaled Oxygen Concentration - - Weight 112.9 kg (249 lb) 10/28/2024 11:33 AM CDT Height 157.5 cm (5' 2 ) 10/17/2024 9:20 AM CDT Body Mass Index 45.54 10/17/2024 9:20 AM CDT Plan of Treatment Upcoming Encounters Date Type Department Care Team (Late st Contact Info) Description 11/17/2024 9:15 AM CDT Appointment [facility] [address] [place] [address] Christine Yanez MD [address] [facility] [place] [address] 11/18/2024 9:45 AM CDT visit [facility] Maternal and Medicine - [facility] [address] [address] Emma Longoria, ISABEL [address] [place] [address] 11/28/2024 10:15 AM CDT Appointment [facility] and Ground [facility] [address] [place] [address] Aisha Herbert MD [address] [address] 11/28/2024 10:45 AM CDT Appointment [facility] and Ground [facility] [address] [place] [address] Christine Yanez MD [address] [facility] [address] [address] 12/01/2024 9:15 AM CDT Appointment [facility] Ground [facility] [address] [place] [address] Christine Yanez MD [address] [facility] [address] [address] 12/08/2024 9:15 AM CDT Appointment [facility] Ground [facility] [address] [place] [address] Christine Yanez MD [address] [facility] [address] [address] 12/15/2024 9:15 AM CDT Appointment [facility] [address] [place] [address] Christine Yanez MD [address], [place] [address] 12/22/2024 9:15 AM CDT Appointment [facility] and Ground [facility] [address] [place] [address] Christine Yanez MD [address], [place] [address] Health Maintenance Due Date Last [...] Name Priority Date/Time Associated Diagnosis Comments US BIOPHYSICAL PROF W NST Routine 11/11/2024 10:15 AM CDT Maternal chronic hypertension in third trimester US BIOPHYSICAL PROF W NST Routine 11/10/2024 12:51 PM CDT Chronic hypertension in Obesity affecting in third trimester US BIOPHYSICAL PROF W NST Routine 11/03/2024 11:32 AM CDT Chronic hypertension in Obesity affecting in third trimester US OB FOLLOW UP PER FETUS Routine 10/27/2024 11:56 AM CDT Chronic hypertension in Obesity affecting in third trimester US MONITORING NST Routine 10/27/2024 11:21 AM CDT Chronic hypertension in Obesity affecting in third trimester US OB FOLLOW UP PER FETUS Routine 10/14/2024 2:37 PM CDT Chronic hypertension in Obesity affecting in third trimester US OB LTD 1 OR MORE FETUSES Stat 10/10/2024 6:17 PM CDT NONSTRESS TEST Stat 10/10/2024 5:09 PM CDT POC URINALYSIS DIPSTICK AUTOMATED Stat 10/10/2024 4:42 PM CDT POC VAGINAL WET PREP Stat 10/10/2024 4:37 PM CDT US OB FOLLOW UP PER FETUS Routine 10/07/2024 4:08 PM CDT Chronic hypertension affecting screening for malformation using ultrasonics US OB DETAIL SINGLE GEST Routine 09/11/2024 10:30 AM CDT Chronic hypertension affecting screening for malformation using ultrasonics from Last 3 Months Results * US BIOPHYSICAL PROF W NST (11/11/2024 10:15 AM CDT) Only the most recent of3 resultswithin the time period is included. Anatomical Region Laterality Modality Pelvis Ultrasound 11/11/2024 9:07 AM CDT Narrative 11/11/2024 10:13 AM CDT BPP WITH NST STUDY ----- Pat. Name: ACOSTA, CHERYL Study Date: 11/11/2024 9:07am Pat. NO: [id number] Referring MD: ANGEL VILLEGAS CNM Site: [facility] [employer]: : 1995 Age: 29 ----- INDICATION ----- Maternal Obesity (BMI>40) Complicating Chronic Hypertension (HTN) Gestational Diabetes, Insulin Controlled CODING ----- Diagnoses Z3A.34: Weeks of gestation O10.013: Pre-existing essential hypertension complicating O99.213: Obesity complicating O24.414: Gestational diabetes mellitus in , insulin controlled Procedures 28042: Limited 1 or more - [facility], position [id number]: biophysical profile; with non-stress testing HISTORY ----- OB History 1 MATERNAL ASSESSMENT ----- Physical Exam Initial weight 112 kg, 248 lb. Initial BMI 45.36 kg/m . Blood pressure 132/68 mmHg. Heart rate 91 bpm METHOD ----- EFM. Transabdominal ultrasound examination. View: Good view ----- Patiño . Number of fetuses: 1 DATING ----- GA by prior assessment 34 w + 2 d GUILLE by prior assessment: 12/21/2024 Method of dating: Restore dating from previous exam Assigned: based on stated GUILLE, selected on 09/11/2024 Assigned GA 34 w + 2 d Assigned GUILLE: 12/21/2024 GENERAL EVALUATION ----- Cardiac activity present. FHR 154 bpm. movements: visualized. Presentation: cephalic NON STRESS TEST ----- NST interpretation: reactive. Test duration 27 min. Baseline FHR 140 bpm. Accelerations: Not Present. Decelerations: Not present. Uterine activity: absent AMNIOTIC FLUID ASSESSMENT ----- Amount of AF: normal amount MVP 3.5 cm. ADRIANA 10.5 cm. Q1 1.5 cm, Q2 3.0 cm, Q3 3.5 cm, Q4 2.6 cm BIOPHYSICAL PROFILE ----- 2: breathing movements 2: Gross body movements 2: tone 2: Amniotic fluid volume NST: reactive 04/10 Biophysical profile score COMMENT ----- Nursing notes: Patient reports positive movement and no bleeding, leaking or jay. Patient scheduled twice weekly. IMPRESSION ----- testing @ 34w 2d for BPP 12/09 yesterday. -The NST is reactive. -Amniotic fluid indices are within normal limits. - The BPP is 04/10 -Reassuring testing. Continue twice weekly testing. Thank you for allowing us to participate in the care of your patient. Procedure Note Christine Yanez MD - 11/11/2024 BPP WITH NST STUDY ----- Pat. Name:Jael ACOSTA Date:11/11/2024 9:07am Pat. NO: [id number] MD:MODE HERNANDEZ [facility]1995Age:29 ----- INDICATION ----- Maternal Obesity (BMI>40) Complicating Chronic Hypertension (HTN) Gestational Diabetes, Insulin Controlled CODING ----- Diagnoses Z3A.34: Weeks of gestation O10.013: Pre-existing essential hypertensioncomplicating O99.213: Obesity complicating O24.414: Gestational diabetes mellitus inpregnancy, insulin controlled Procedures 39291: Limited 1 or more - ADRIANA, R, position 56395: biophysical profile; with non-stresstesting HISTORY ----- OB History 1 MATERNAL ASSESSMENT ----- Physical Exam Initial weight 112 kg, 248 lb. Initial BMI 45.36kg/m . Blood pressure 132/68 mmHg. Heart rate 91 bpm METHOD ----- EFM. Transabdominal ultrasound examination. View: Good view ----- Patiño . Number of fetuses: 1 DATING ----- GA by prior [id number] w + 2 d GUILLE by prior assessment:12/21/2024 Method of dating:Restore dating from previous exam Assigned:based on stated GUILLE, selected on 09/11/2024 Assigned GA34 w + 2 d Assigned GUILLE:12/21/2024 GENERAL EVALUATION ----- Cardiac activity present. FHR 154 bpm. movements: visualized.Presentation: cephalic NON STRESS TEST ----- NST interpretation: reactive. Test duration 27 min. Baseline FHR 140 bpm.Accelerations: Not Present. Decelerations: Not present. Uterine activity: absent AMNIOTIC FLUID ASSESSMENT ----- Amount of AF: normal amount MVP 3.5 cm. ADRIANA 10.5 cm. Q1 1.5 cm, Q2 3.0 cm, Q3 3.5 cm, Q4 2.6 cm BIOPHYSICAL PROFILE ----- 2: breathing movements 2: Gross body movements 2: tone 2: Amniotic fluid volume NST: reactive 04/10 Biophysical profile score COMMENT ----- Nursing notes: Patient reports positive movement and no bleeding,leaking or jay. Patient scheduled twice weekly. IMPRESSION ----- testing @ 34w 2d for BPP 12/09 yesterday. -The NST is reactive. -Amniotic fluid indices are within normal limits. - The BPP is 04/10 -Reassuring testing. Continue twice weekly testing. Thank you for allowing us to participate in the care of your patient. us Mesfin Kirk MD US ORDERABLES Final Result * US OB FOLLOW UP PER FETUS (10/27/2024 11:56 AM CDT) Only the most recent of3 resultswithin the time period is included. Anatomical Region Laterality Modality Pelvis Ultrasound 10/27/2024 11:2 0 AM CDT Narrative 10/27/2024 11:55 AM CDT STL FOLLOW UP ----- Pat. Name: CHERYL ACOSTA Study Date: 10/27/2024 11:20am Pat. 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 Initial weight 112 kg, 248 lb. BMI 46.09 kg/m . Initial BMI 45.36 kg/m . Weight gain 2 kg, 4 lb METHOD ----- Transabdominal ultrasound examination ----- Patiño . Number of fetuses: 1 DATING ----- GA by prior assessment 32 w + 1 d GUILLE by prior assessment: 12/21/2024 Ultrasound examination on: 10/27/2024 GA by U/S based upon: AC, BPD, EFW, Femur, HC GA by U/S 31 w + 6 d GUILLE by U/S: 12/23/2024 Method of dating: Restore dating from previous exam Assigned: based on stated GUILLE, selected on 09/11/2024 Assigned GA 32 w + 1 d Assigned GUILLE: 12/21/2024 BIOMETRY ----- BPD 80.2 mm 32w 1d 43% Hadlock OFD 103.5 mm 33w 5d 84% Valdemar HC 293.7 mm 32w 3d 20% Hadlock AC 279.5 mm 32w 0d 44% Hadlock Femur 60.0 mm 31w 2d 16% Hadlock HC / AC 1.05 44% Nicolaides Weight Calculation: EFW 1,845 g 31w 3d 30% Hadlock EFW (lb,oz) 4 lb 1 oz EFW by Hadlock ([id number]) Head / Face / Neck Biometry: [employer]itor [employer] 2.3 mm Extremities / Bony Struc Biometry: FL / BPD 0.75 FL / HC 0.20 FL / AC 0.21 GENERAL EVALUATION ----- Cardiac activity present. FHR 129 bpm. movements: present. Presentation: cephalic Placenta: Placental site: left lateral Umbilical cord: Cord vessels: 3 vessel cord. Insertion site: placental insertion: normal Amniotic fluid: Amount of AF: normal amount. MVP 4.7 cm. ADRIANA 14.0 cm. Q1 3.3 cm, Q2 2.2 cm, Q3 4.7 cm, Q4 3.7 cm ANATOMY ----- The following structures appear normal: Head / Neck Cranium. Lateral ventricles. Choroid plexus. Midline falx. Cavum septi pellucidi. Heart / Thorax 4-chamber view. LVOT view. Diaphragm. Abdomen Stomach. Kidneys. Bladder. sex: male. GROWTH OVERVIEW ----- Exam date GA BPD (mm) HC (mm) AC (mm) FL (mm) HL (mm) EFW (g) 09/11/2024 25w 4d 65.5 71% 242.4 54% 213.7 51% 44.3 12% 44.8 75% 816 36% 10/07/2024 29w 2d 75.8 73% 269.4 19% 245.0 28% 55.0 28% 1,321 28% 10/27/2024 32w 1d 80.2 43% 293.7 20% 279.5 44% 60.0 16% 1,845 30% COMMENT ----- Patient's name and date of were verified by the endocrinologist prior to the exam IMPRESSION ----- Patiño @ 32w 1d complicated by CHTN and BMI. - The biometry is consistent with dates with the EFW at the 30% percentile. - Amniotic fluid indices are within normal limits. - Limited anatomy is unremarkable. The patient had an NST following the ultrasound; please see separate report for details. A follow up is scheduled in 4 weeks to follow growth. Thank you for allowing us to participate in the care of this patient. Procedure Note Christine Yanez MD - 10/27/2024 [facility] FOLLOW UP ----- Pat. Name:Jael ACOSTA Date:10/27/2024 11:20am Pat. NO: [id number] MD:ANGEL VILLEGAS CNM [facility]David Mg RDMS :1995Age:29 ----- INDICATION ----- Maternal Obesity (BMI>40) Complicating Chronic Hypertension (HTN) CODING ----- Diagnoses Z3A.32: Weeks of gestation O10.013: Pre-existing essential hypertensioncomplicating O99.213: Obesity complicating Procedures 70238: Ultrasound, uterus, real time withimage documentation, follow up, transabdominal approach per fetus HISTORY ----- OB History 1 MATERNAL ASSESSMENT ----- Physical Exam Weight 114 kg. Initial weight 112 kg, 248 lb. BMI46.09 kg/m . Initial BMI 45.36 kg/m . Weight gain 2 kg, 4 lb METHOD ----- Transabdominal ultrasound examination ----- Patiño . Number of fetuses: 1 DATING ----- GA by prior [id number] w + 1 d GUILLE by prior assessment:12/21/2024 Ultrasound examination on:10/27/2024 GA by U/S based upon:AC, BPD, EFW, Femur, HC GA by U/S31 w + 6 d GUILLE by U/S:12/23/2024 Method of dating:Restore dating from previous exam Assigned:based on stated GUILLE, selected on 09/11/2024 Assigned GA32 w + 1 d Assigned GUILLE:12/21/2024 BIOMETRY ----- BPD 80.2 mm 32w 1d 43%Hadlock OFD 103.5 mm 33w 5d 84%Valdemar HC 293.7 mm 32w 3d 20%Hadlock AC 279.5 mm 32w 0d 44%Hadlock Femur 60.0 mm 31w 2d 16%Hadlock HC / AC 1.05 44%Nicolaides Weight Calculation: EFW 1,845 g 31w 3d30% Hadlock EFW (lb,oz) 4 lb 1 oz EFW by Hadlock ([id number]-[id number]-FL) Head / Face / Neck Biometry: Auditor Tax 2.3mm Extremities / Bony Struc Biometry: FL / BPD 0.75 FL / HC 0.20 FL / AC 0.21 GENERAL EVALUATION ----- Cardiac activity present. R [id number]|2024-11-14 14:38:00|2024-11-14 14:37:00|XMS_ITS|SHEREE BARTHOLOMEW|External Medical Summaries|[id number]|" Clinical Summary Created on: November 14, 2024 Cheryl Acosta : 1995 Sex: Female Author Organization [facility] Address [address] [place] [address] Phone Care Team Providers Care Area Field Person Name Role Phone Shantel Calero MD Primary [...] 03/20/2017, 05/25/2014, Additional history exists SARS-COV-2 Immunization (2023- season) 2024 10/26/2020, 10/04/2020 Respiratory Syncytial Virus [...] Health Improving( 4:17 PM CDT) Yes Odessa Quinn LCSW Note: Goal Reviewed with: patient Readiness to change: Ready to change Department associated with goal: [facility] Steps to achieve goal: will identify and verbalize how she would like her relationships with her daughter to be. will identify three ways/habits/skills she believes may have a positive impact on strengthening the relationship she has with her daughter. 3. Will attend individual and/or group therapy at least 1x/month for 8-10 sessions Trauma Behavioral Health Improving( 4:16 PM CDT) No Odessa Quinn LCSW Note: Cheryl will gain insight regarding impact of trauma and gain relief from traumatic stress. Goal Reviewed with: patient today Readiness to change: Ready to change Department associated with goal: [facility] Steps to achieve goal: will share personal trauma story in counseling/psychotherapy sessions. will learn/identify how trauma has impacted personal life, physical health and behavioral health. will identify and practice, at least two, skills/activities/routines, to gain relief from the impact of trauma. Will attend individual or group sessions 1x/mo for at least 8-10 sessions Care Teams Area Field Person Relationship Specialty Start Date End Date shireen Shantel Franklin MD [address] [place] [address] [address] [place] [address] PCP - General Family Medicine 04/03/17 "
--- OUTSIDE RECORDS SUMMARY | 2024-11-14 14:38 | XMS_ITS | Clinical Summary ---
Author Organization [facility] Address [address] [place] [address] Care Team Providers Care Inspector Shells Name Role Phone Bradly Davis MD Unavailable Koel Shahid MD Unavailable [phone] Ericka Lamas NP Unavailable [phone] Patrick Lopez MD Primary Care Provider + [...] 11/28/2022 Assessment & Plan (05/08/2023 3:17 PM HEATING EQUIPMENT REPAIRER): Chronic problem, not at goal. Unfortunately she was unable to tolerate low dose metformin. She is interested now in considering control, prefers non-implantable option at this time. I sent in rx for OCP, she follows regularly with her WEB PRODUCTION MANAGER and is current on her pap smear. [...] (12/20/2021): Added automatically from request for surgery [id number] SAYDA (obstructive sleep apnea) 04/11/2018 Resolved Problems Problem Noted Date Diagnosed Date Resolved Date Acute cholecystitis 12/17/2021 01/06/20 Overview (12/20/2021): Added automatically from request for surgery [id number] Pre-eclampsia in third trimester 09/16/2020 11/28/2022 Gestational diabetes mellitu s (GDM), antepartum 08/31/2020 11/28/2022 Overview (10/08/2020): GCT: 183, 08/09 GTT: 96, 187, 160, 166, 08/12 Last Assessment & Plan: Accelerated AC noted two weeks ago, overall EFW: 2040g, 73%. Hyperglycemia noted with fasting glucoses. Sporadic after meal elevations. Completing testing with primary Dampener Operator twice weekly. Strong efforts with dietary changes. [...] on file Legal Sex Female 1:32 PM HEATING EQUIPMENT REPAIRER Gender Identity Not on file Sexual Orientation [...] Livin g Yang Mandel MD Complications:None Delivery Location:[facility] Last Filed Vital Signs Vital Sign Reading Time Taken Comments Blood Pressure 128/70 05/08/2023 1:44 PM HEATING EQUIPMENT REPAIRER Pulse 93 05/08/2023 1:44 PM HEATING EQUIPMENT REPAIRER Temperature 36 C (96.8 F) 01/05/2022 1:04 PM CDT Respiratory Rate 12 11/28/2022 1:20 PM CDT Oxygen Saturation 96% 01/05/2022 1:04 PM CDT Inhaled Oxygen Concentration - - Weight 107.6 kg (237 lb 3.2 oz) 05/08/2023 1:44 PM HEATING EQUIPMENT REPAIRER Height 157.5 cm (5' 2 ) 05/08/2023 1:44 PM HEATING EQUIPMENT REPAIRER Body Mass Index 43.38 05/08/2023 1:44 PM HEATING EQUIPMENT REPAIRER Plan of Treatment Health Maintenance Due Date [...] last revised on 19. Testing performed by: [facility], [address] [place] [address]., [id number] Hep B core IgM Nonreactive Nonreactive Ton HOWARD [facility] (JONI) Comment: Interpretive Data If HepB Core IgM Ab is reported as Equivocal, a new sample should be drawn in two weeks for testing. Current interpretive data was last revised on 19. Testing performed by: [facility], [address] [place] [address]., [id number] Hep C Ab Nonreactive Nonreactive ARIEL [facility] ([place]ONI) Comment: Interpretive Data Nonreactive: Antibodies to [...] last revised on 2019. Testing performed by: [facility], [address] [place] [address]., [id number] HepBsAg Nonreactive Nonreactive ARIEL GOLDEN (JONI) Comment:Testing performed by : [facility], [address] [place] [address]., [id number] Blood 12/18/2021 5:00 AM CDT 12/18/2021 1:49 PM CDT Breonna Stallings MD LAB MICROBIOLOGY - GENER AL ORDERABLES Final Result ARIEL GOLDEN (JONI) 1 [facility] Department of Laboratories [place], [place] [id number] from Last 3 Months or Most Recently Relevant to Health Maintenance Insurance [place] [employer] [place] [employer] [employer] Advance Directives For more information, please contact: [phone] * Full Code (Latest Code Status on File) Date Activated Date Inactivated Comments 12/21/2021 1:48 PM 12/22/2021 7:39 PM * Full Code Date Activated Date Inactivated Comments 12/18/2021 6:27 AM 12/21/2021 1:48 PM Care Teams Inspector Shells Relationship Specialty Start Date End Date Ericka Lamas EVS TECH [address] [place] [address] [place] [address] PCP - auto transport driver Nurse Practitioner 11/13/22 Patrick Lopez MD [address] [place] [address] [address] [facility] [place] [address] PCP - General Family Medicine 01/16/23 Bradly Davis MD Consulting Physician General Surgery 12/22/21 Kole Shahid MD Consulting Physician Gastroenterology 12/22/21
--- OUTSIDE RECORDS SUMMARY | 2024-11-14 14:38 | XMS_ITS | Clinical Summary ---
Author Organization [facility] Address [address] [place] [address] Care Team Providers Care Retail Merchandiser Name Role Phone Unavailable Primary Care Provider Unavailabl e Source Comments [facility],non-owned Affiliates and Associated Physician Practices is amultiple site organization consisting of ambulatory clinics and hospital sitesin [place], [place], [place] and [place]. This disclosure is being madepursuant to the Care Everywhere program and may not contain all information available regarding this patient. Last updated 18.[facility] Allergies No known active allergies Medications * Be aware that medications may not be up to date on this document. Alwaysverify current medications with the patient. Vit-DSS-Fe Fum-FA ( VITAMIN WITH IRON) tabletIndications:P regnancy Take 1 (one) tablet by mouth once daily Reasons: Active iron polysaccharides (NIFEREX 150) 150 MG capsule Take 1 (one) capsule by mouth once daily 100 capsule 09/20/19 21 Active Additional Information Patient not taking.Reported on 12/20/2023 ibuprofen (MOTRIN) 600 MG tablet Take 1 (one) tablet by mouth every 6 hours as needed for Pain 40 tablet 1 09/20/19 21 Active Additional Information Patient not taking.Reported on 12/20/2023 docusate sodium (COLACE) 100 MG capsule Take 1 (one) capsule by mouth 2 times daily 60 capsule 1 09/20/19 21 Active Additional Information Patient not taking.Reported on 12/20/2023 amLODIPine (Norvasc) 10 MG tablet Take 1 (one) tablet by mouth once daily 07/26/19 24 Active Active Problems Problem Noted Date Diagnosed [...] after meal elevations. Completing testing with primary Marketing Professor twice weekly. Strong efforts with dietary changes. [...] benefits. Assessment & Plan (09/01/2020 12:32 PM WINDOW SHADE RING SEWER): Accelerated AC noted today, overall EFW: 2040g, 73%. ADRIANA: 14.9cm. To begin glucose monitoring [...] office. Assessment & Plan (09/01/2020 12:44 PM WINDOW SHADE RING SEWER): Total weight gain thus far: 12 pounds [...] 2018 Assessment & Plan (09/01/2020 12:29 PM WINDOW SHADE RING SEWER): No treatment offered at time of diagnosis by PCP, no available Hemoglobin A1c available for review. M recommendations: 1. Sent with lab requistion today for hemoglobin A1c, CMP. 2. Requested records from patient's PCP Dr. Kimble. 3. Consider echocardiogram if A1c is elevated, not all imaging obtained today. Irregular menses Resolved Problems Problem Noted Date Diagnosed Date Resolved Date Obesity 09/01/2020 Immunizations Immunization Administration Dates Next Due MMR 09/18/2020(Deferred: See [...] care, and heating? Not very hard 12/20/2023 [facility] of Occupat ional Health - Occupational Stress [...] place to sleep or slept in a longterm (including now)? No 12/20/2023 [place] Depression Scale Answer Date Recorded [place] Depression Scale Total 0 12/20/2023 The thought of harming myself has occurred to me . Never 12/20/2023 Comments No Sex and Gender Information Value Date Recorded Sex Assigned at Female 03/21/2021 1:30 PM CDT Legal Sex Female 3:32 PM WINDOW SHADE RING SEWER Gender Identity Female 03/21/2021 1:30 PM CDT [...] - 19+ 3-dose series) 02/06/2016 COVID-19 VACCINE ( - season) 2024 DEPRESSION SCREENING 07/02/2024 12/20/2023 INFLUENZA VACCINE (Season Ended) 2025 04/18/2023, 05/07/2022, 06/01/2020, Additional history exists ZOSTER VACCINE (1 of 2) 2047 HEPATITIS [...] infection. Jamie Leija MD LAB - CHEMISTRY ORDERABLES [facility] Result [facility] [address] [place] [address] from Last 3 Months or Most Recently Relevant to Health Maintenance Insurance ANTHEM ANTHEM Advance Directives * Full Code (Latest Code Status on File) Date Activated Date Inactivated Comments 09/16/2020 12:00 PM 09/19/2020 2:43 PM * Full Code Date Activated Date Inactivated Comments 09/15/2020 8:25 PM 09/16/2020 12:00 PM * Full Code Date Activated Date Inactivated Comments 09/15/2020 4:53 PM 09/15/2020 8:25 PM
--- OUTSIDE RECORDS SUMMARY | 2024-11-14 14:38 | XMS_ITS | Referral Summary ---
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 Unfortunately she was unable to tolerate low dose metformin. She is interested now in considering control, prefers non-implantable option at this time. I sent in rx for OCP, she follows regularly with her GANG MINER and is current on her pap smear. [...] (12/20/2021): Added automatically from request for surgery [id number] SAYDA (obstructive sleep apnea) 04/11/2018 Resolved Problems Problem Noted Date Diagnosed Date Resolved Date Acute cholecystitis 12/17/2021 01/06/20 Overview (12/20/2021): Added automatically from request for surgery [id number] Pre-eclampsia in third trimester 09/16/2020 11/28/2022 Gestational diabetes mellitu s (GDM), antepartum 08/31/2020 11/28/2022 Overview (10/08/2020): GCT: 183, 08/09 GTT: 96, 187, 160, 166, 08/12 Last Assessment & Plan: Accelerated AC noted two weeks ago, overall EFW: 2040g, 73%. Hyperglycemia noted with fasting glucoses. Sporadic after meal elevations. Completing testing with primary Training Developer twice weekly. Strong efforts with dietary changes. [...] on file Legal Sex Female 1:32 PM GAS PLANT DISPATCHER Gender Identity Not on file Sexual Orientation Not on file Last Filed Vital Signs Vital Sign Reading Time Taken Comments Blood Pressure 128/70 05/08/2023 1:44 PM GAS PLANT DISPATCHER Pulse 93 05/08/2023 1:44 PM GAS PLANT DISPATCHER Temperature 36 C (96.8 F) 01/05/2022 1:04 PM CDT Respiratory Rate 12 11/28/2022 1:20 PM CDT Oxygen Saturation 96% 01/05/2022 1:04 PM CDT Inhaled Oxygen Concentration - - Weight 107.6 kg (237 lb 3.2 oz) 05/08/2023 1:44 PM GAS PLANT DISPATCHER Height 157.5 cm (5' 2 ) 05/08/2023 1:44 PM GAS PLANT DISPATCHER Body Mass Index 43.38 05/08/2023 1:44 PM GAS PLANT DISPATCHER Plan of Treatment Not on file Procedures [...] last revised on 19. Testing performed by: [address] [place]., [address] Hep B core IgM Nonreactive Nonreactive Ton GOLDEN (JONI) Comment: Interpretive Data If HepB Core IgM Ab is reported as Equivocal, a new sample should be drawn in two weeks for testing. Current interpretive data was last revised on 19. Testing performed by: [address] [address] Hep C Ab Nonreactive Nonreactive ARIEL GOLDEN [...] last revised on 2019. Testing performed by: [facility], [address] [place] [address]., [id number] HepBsAg Nonreactive Nonreactive ARIEL GOLDEN (JONI) Comment:Testing performed by : [address] [address] Blood 12/18/2021 5:00 AM CDT 12/18/2021 1:49 PM CDT Breonna Stallings MD LAB MICROBIOLOGY - GENER AL ORDERABLES Final Result ARIEL GOLDEN (JONI) 1 [facility] [place] [address] from Last 3 Months or Most Recently Relevant to Health Maintenance Insurance [employer] ACC[employer] OOS [employer] OOS Advance Directives For more information, please contact: [phone] * Full Code (Latest Code Status on File) Date Activated Date Inactivated Comments 12/21/2021 1:48 PM 12/22/2021 7:39 PM * Full Code Date Activated Date Inactivated Comments 12/18/2021 6:27 AM 12/21/2021 1:48 PM Care Teams Die Cutting Machine Operator Relationship Specialty Start Date End Date Ericka Lamas NP [address] [place] [address] [place] [address] PCP - motorized squad captain Nurse Practitioner 11/13/22 Patrick Lopez MD [address] [place] [address] [address] [place] [address] PCP - General Family Medicine 01/16/23 Bradly Davis MD Consulting Physician General Surgery 12/22/21 Kole Shahid MD Consulting Physician Gastroenterology 12/22/21
--- NOTE | 2024-11-14 14:55 | OBADM ---
This patient, Cheryl Acosta, admitted to the OB room Labor/Delivery/Recovery 119 for observation. Patient/family oriented to hospital policies and general routines including ID bracelet, bed and alarms, visiting hours, pain management, procedures, bathroom and other care routines, personal items, smoking policy, room service/diet, and visiting hours. Patient/Family are encouraged to report perceived risks to care and to ask questions if they do not understand what they are told or what they should do.
[2024-11-14 15:16] LABS: Basophils Percent Auto 0.2 % (0.2-1.2); Eosinophils Absolute Auto 0.1 K/mm3 (0-0.3); Hematocrit 31.5 % (37.0-47.0); Hemoglobin 9.9 g/dL (12.0-15.0); Immature Granulocyte Absolute 0.03 K/mm3 (0.00-0.031); Immature Granulocyte Percent A 0.6 % (0-0.5); Lymphocytes Percent Auto 19.5 % (18.3-44.2); Mean Corpuscular HGB Conc 31.4 g/dl (32-36); Mean Corpuscular Hemoglobin 26.3 pg (26-34); Mean Corpuscular Volume 83.6 fl (80-100); Mean Platelet Volume 10.1 fl (7.4-10.4); Monocytes Absolute Auto 0.5 K/mm3 (0.1-0.6); Monocytes Percent Auto 10.3 % (2.6-8.5); Neutrophils Absolute Auto 3.5 K/mm3 (1.3-6.7); Neutrophils Percent Auto 68.4 % (45.5-73.1); Platelet Count Result 263 k/mm3 (150-375); Red Blood Count 3.77 M/mm3 (4.2-5.4); Red Cell Distribution Width 13.1 % (11.5-14.5); White Blood Count 5.1 K/mm3 (4.5-10.0)
[2024-11-14 15:24] LABS: Add Urine Microscopic? YES; Appearance Urine Cloudy (Clear); Bacteria Urine 1+ /hpf; Bilirubin Urine Negative (Negative); Blood Urine Negative (Negative); Color Urine Yellow (Yellow); Glucose Urine UA Negative (Negative); Ketones Urine Trace mg/dL (Negative); Leukocyte Esterase Ur Trace LEU/UL (Negative); Nitrate Urine Negative (Negative); Non Pathogenic Casts 0-2; Protein Urine Trace mg/dL (Negative); RBC Urine 0-2 /hpf (0-2); Specific Grav Ur 1.019 (1.001-1.035); Squamous Epithelial Cell Urine Many /hpf (Few); WBC Urine 0-5 /hpf (0-3)
[2024-11-14 15:36] LABS: Alanine Aminotransferase 121 U/L (6-35); Albumin Level 3.7 g/dL (3.5-5.1); Alkaline Phosphatase 93 U/L (38-126); Anion Gap 7 mmol/L (4-12); Aspartate Amino Transferase 66 U/L (14-36); Bilirubin,Total 0.6 mg/dL (0.2-1.3); Blood Urea Nitrogen 7 mg/dL (7-17); Carbon Dioxide 22 mmol/L (22-30); Chloride 107 mmol/L (98-107); Estimated Glomerular Filt Rate > 60; Glucose 87 mg/dL (65-110); Sodium 136 mmol/L (137-145); Uric Acid 5.1 mg/dL (2.5-7.5)
[2024-11-14 15:58] LABS: Creatinine Urine 122.5 mg/dL; Total Protein Urine Random < 5 mg/dL; Ur Ttl Prot Creatinine Ratio < 0.04 mg/mg (0-0.20)
[2024-11-14] MEDS: NIFEdipine 10 MG CAPSULE PO (16:22)
--- NOTE | 2024-11-14 16:51 | P.HP_ITS ---
H&P: HPI History of Present Illness Date/Time: 11/14/24 16:51 Chief Complaint: Elevated blood pressures Narrative: This patient is a 29-year-old 3 para 0111 at 34 weeks and 5 days. She is dated by her last menstrual period. It is supported by a 6 week and 6 day ultrasound. Patient presented the office with elevated blood pressures. She was sent to Labor and delivery for monitoring. Labs were drawn and preeclampsia laboratory set was completed. She had elevated liver enzymes. During her period of observation in Labor delivery she showed some severe range blood pressures. Nifedipine protocol was started. Magnesium sulfate was started. Steroids were withheld due to her blood sugar concerns. We will defer to Maternal Medicine. This patient has been comanaged by Maternal- medi cine for her insulin-dependent gestational diabetes and her chronic hypertension, now with superimposed preeclampsia. She denies any headache, blurry vision, epigastric pain. She denies any contractions, loss of fluid, vaginal bleeding. 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 She is obese. The fetus had a choroid plexus cyst at 20 weeks. It has resolved. Patient started on magnesium sulfate. She will be transferred to [facility]. Dr. Cedillo has agreed to take the transfer. Review of Systems Review of Systems: All systems reviewed & are unremarkable except as noted in HPI and below Constitutional: Constitutional: Denies chills, Denies fatigue, Denies fever(s) and Denies weakness Eyes: Eyes: Denies blurry vision, Denies change in vision, Denies loss of peripheral vision, Denies loss of vision, Denies other visual disturbances and Denies eye pain ENT: Denies vertigo, Denies dizziness, Denies hearing loss, Denies mouth pain, Denies nasal obstruction, Denies neck mass and Denies neck pain Cardiovascular: Cardiovascular: Denies chest pain, Denies diaphoresis, Denies syncope, Denies leg edema and Denies dyspnea Respiratory: Respiratory: Denies chest congestion, Denies cough, Denies hemoptysis, Denies dyspnea and Denies wheezing Gastrointestinal: Gastrointestinal: Denies abdominal pain, Denies constipation, Denies diarrhea, Denies nausea and Denies vomiting Genitourinary: Genitourinary: Denies hematuria, Denies change in libido, Denies nocturia, Denies genital lesions, Denies flank pain and Denies urinary urgency Musculoskeletal: Musculoskeletal: Denies abnormal gait, Denies back pain, Denies myalgias, Denies arthralgias, Denies joint swelling, Denies muscle weakness and Denies neck pain Integumentary/Breasts: Skin/Breast: Denies swelling, Denies breast pain, Denies breast mass, Denies dry skin, Denies nipple discharge, Denies unusual bruising and Denies jaundice Neurologic: Denies Neuro-related abnormal movements, Denies Abnormal speech present, Denies abnormal gait, Denies behavioral changes, Denies confusion, Denies vertigo, Denies dizziness, Denies syncope, Denies loss of vision, Denies memory loss, Denies convulsions and Denies weakness Psychiatric: Psychiatric: Denies abnormal sleep pattern, Denies behavioral changes, Denies change in libido, Denies confusion, Denies depression, Denies anhedonia and Denies memory loss Endocrine: Endocrine: Reports no additional endocrine complaints, Denies change in libido and Denies fatigue Hematologic/Lymphatic: Hematologic/Lymphatic: Reports no additional hematologic/lymphatic complaints Allergic/Immunologic: Allergic/Immunologic: Reports no additional allergic/immunologic complaints and Denies wheezing PMFSH Past Medical History Medical History History of hypertension Preeclampsia Surgical History Surgical History No significant past surgical history Social History Social History Smoking status: Never smoker Alcohol intake: never Substance use: never Meds Home Medications and Allergies Allergies Allergy/AdvReac Type Severity Reaction Status Date / Time No Known Allergies Allergy Verified 12/11/23 12:59 Vital Signs Vital Signs - 24 hr 11/14/24 15:01 11/14/24 15:16 11/14/24 15:31 Pulse Rate 88 84 78 Blood Pressure 141/80 H 139/79 147/86 H 11/14/24 15:46 11/14/24 16:01 11/14/24 16:16 Pulse Rate 80 83 79 Blood Pressure 151/88 H 155/89 H 164/89 H 11/14/24 16:31 11/14/24 16:33 11/14/24 16:46 Pulse Rate 78 73 88 Blood Pressure 157/120 H 154/95 H 145/74 H Exam Const: General: cooperative, healthy appearing, comfortable and no acute distress Orientation/consciousness: oriented to person, oriented to place and oriented to time HENMT: Head: normal to inspection Ears: external ears normal Face/Nose/Sinus: Normal external nose present and normal facial exam Face and sinus: normal facial exam Eyes: General: appearance normal, both eyes and all related structures Neck: Neck: normal visual inspection, trachea midline and supple Resp: Auscultation: clear to auscultation bilaterally, no crackles, no rales, no rhonchi and no wheezes Cardio: Rate: regular rate Rhythm: regular rhythm Heart sounds: no click, no murmurs and no rubs GI: GI Palp: No abdominal tenderness, No Soft to palpation, No Tenderness to palpation present (GI) and No Palpable mass present Auscultation: normal bowel sounds Skin: General skin exam: normal color and no rashes or lesions noted Neuro: General: oriented to person, oriented to place and oriented to time Extrem: General: normal to inspection, no joint enlargement, no clubbing, cyanosis or edema, no pedal edema and no calf tenderness Psych: Appearance: grossly normal Mental Status: mental status grossly nor mal Speech and movement: Normal speech and movement present H&P: Results Labs Labs: Short CBC 11/14/24 Range/Units 14:55 WBC 5.1 (4.5-10.0) K/mm3 Hgb 9.9 L (12.0-15.0) g/dL Hct 31.5 L (37.0-47.0) % Plt Count 263 (150-375) k/mm3 BMP 11/14/24 14:55 Sodium 136 L Potassium 4.0 Chloride 107 Carbon Dioxide 22 BUN 7 Creatinine 0.71 Glucose 87 Calcium 9.0 Liver Function 11/14/24 Range/Units 14:55 Total Bilirubin 0.6 (0.2-1.3) mg/dL AST 66 H (14-36) U/L ALT 121 H (6-35) U/L Alkaline Phosphatase 93 (38-126) U/L Albumin 3.7 (3.5-5.1) g/dL Urine 11/14/24 Range/Units 14:55 Urine Color Yellow (Yellow) Urine Appearance Cloudy H (Clear) Urine pH 6.0 (5.0-9.0) Ur Specific [place] 1.019 (1.001-1.035) Urine Protein Trace (Negative) mg/dL Urine Glucose (UA) Negative (Negative) mg/dL Assessment and Plan Assessment and plan (1) Gestational diabetes mellitus (GDM) affecting fourth : Code(s): O24.419 - Gestational diabetes mellitus in , unspecified control Status: Acute (2) Preeclampsia, severe: Code(s): O14.10 - Severe pre-eclampsia, unspecified trimester Status: Acute (3) Chronic hypertension affecting : Code(s): O10.919 - Unspecified pre-existing hypertension complicating , unspecified trimester Status: Acute Plan This patient is a 29-year-old 3 para 0111 at 34 weeks and 5 days. She is dated by her last menstrual period. It is supported by a 6 week and 6 day ultrasound. Patient presented the office with elevated blood pressures. She was sent to Labor and delivery for monitoring. Labs were drawn and preeclampsia laboratory set was completed. She had elevated liver enzymes. During her period of observation in Labor delivery she showed some severe range blood pressures. Nifedipine protocol was started. Magnesium sulfate was started. Steroids were withheld due to her blood sugar concerns. We will defer to Maternal Medicine. This patient has been comanaged by Maternal- medicine for her insulin-dependent gestational diabetes and her chronic hypertension, now with superimposed preeclampsia. She denies any headache, blurry vision, epigastric pain. She denies any contractions, loss of fluid, vaginal bleeding. 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 She is obese. The fetus had a choroid plexus cyst at 20 weeks. It has resolved. Patient started on magnesium sulfate. She will be transferred to [facility]. Dr. Cedillo has agreed to take the transfer.
--- NOTE | 2024-11-14 17:00 | P.TS_ITS ---
Transfer Discharge Sum: Prov Provider Date of admission: 11/14/2024 Primary care physician: [facility] [employer] Admitting clinician: Tristen DS: Admitting Diagnosis Discharge Date 11/14/2024 Admitting Diagnosis Chronic hypertension DS: Discharge Diagnosis Discharge Diagnosis (1) Preeclampsia, severe: Code(s): O14.10 - Severe pre-eclampsia, unspecified trimester Status: Acute Transfer Discharge Sum: Hosp Hospital Course Hospital course: This patient is a 29-year-old 3 para 0111 at 34 weeks and 5 days. She is dated by her last menstrual period. It is supported by a 6 week and 6 day ultrasound. Patient presented the office with elevated blood pressures. She was sent to Labor and delivery for monitoring. Labs were drawn and preeclampsia laboratory set was completed. She had elevated liver enzymes. During her period of observation in Labor delivery she showed some severe range blood pressures. Nifedipine protocol was started. Magnesium sulfate was started. Steroids were withheld due to her blood sugar concerns. We will defer to [facility]. This patient has been comanaged by [facility] for her insulin-dependent gestational diabetes and her chronic hypertension, now with superimposed preeclampsia. She denies any headache, blurry vision, epigastric pain. She denies any contractions, loss of fluid, vaginal bleeding. 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 She is obese. The fetus had a choroid plexus cyst at 20 weeks. It has resolved. Patient started on magnesium sulfate. [facility]. Dr. Cedillo has agreed to take the transfer. Time Spent with Patient Time attestation: Total time spent providing and/or coordinating transfer services: DS: Data Data Completed and Pending Labs on day of discharge: Labs from last 24 hours 11/14/24 14:55 WBC 5.1 RBC 3.77 L Hgb 9.9 L Hct 31.5 L MCV 83.6 MCH 26.3 MCHC 31.4 L RDW 13.1 Plt Count 263 MPV 10.1 Immature Gran % (Auto) 0.6 H Neut % (Auto) 68.4 Lymph % (Auto) 19.5 Gordon % (Auto) 10.3 H Eos % (Auto) 1.0 Baso % (Auto) 0.2 Lymph # (Auto) 1.00 Gordon # (Auto) 0.5 Eos # (Auto) 0.1 Baso # (Auto) 0.0 Abs Immat Gran (auto) 0.03 Absolute Neuts (auto) 3.5 Absolute Nucleated RBC 0.000 Nucleated RBC % 0.0 Sodium 136 L Potassium 4.0 Chloride 107 Carbon Dioxide 22 Anion Gap 7 BUN 7 Creatinine 0.71 Estim Creat Clear Calc Not Reportable Estimated GFR > 60 Glucose 87 Uric Acid 5.1 Calcium 9.0 Total Bilirubin 0.6 AST 66 H ALT 121 H Alkaline Phosphatase 93 Total Protein 7.0 Albumin 3.7 Urine Color Yellow Urine Appearance Cloudy H Urine pH 6.0 Ur Specific [place] 1.019 Urine Protein Trace Urine Glucose (UA) Negative Urine Ketones Trace H Ur Blood (Man) Negative Urine Nitrate Negative Urine Bilirubin Negative Urine Urobilinogen 1.0 Leukocyte Esterase Rfl Trace H Urine RBC 0-2 Urine WBC 0-5 Ur Squamous Epith Cells Many H Urine Bacteria 1+ H Urine Casts 0-2 U Random Total Protein < 5 Urine Creatinine 122.5 Protein/Creat Ratio 2 < 0.04
[2024-11-14] MEDS: LACTATED RINGERS 1,000 ML 75 ML IV CONT (17:37)
[2024-11-14] MEDS: MAGNESIUM SULF 4 GM/WATER100ML 4 GM/100 ML BAG IVPB (17:46)
[2024-11-14] MEDS: MAGNESIUM SULF 20GM/WATER500ML 500 ML 50 MG IV CONT (18:19)
== END 2024-11-14 18:50 | disposition short-term general hospital (02) ==
LOC: ANHOBOP 18:48 → ANHLDR 18:48
PROVIDERS: Advanced Practice Midwife; Admitting Provider Obstetrics & Gynecology; Visit Provider Obstetrics & Gynecology
DX: O14.13 Severe pre-eclampsia, third trimester (principal); O10.913 Unspecified pre-existing hypertension complicating pregnancy, third trimester; O24.419 Gestational diabetes mellitus in pregnancy, unspecified control; O99.213 Obesity complicating pregnancy, third trimester; E66.9 Obesity, unspecified; O99.013 Anemia complicating pregnancy, third trimester; D57.3 Sickle-cell trait; Z3A.34 34 weeks gestation of pregnancy
CPT/HCPCS: 36415; 80053; 81001; 82570; 84156; 84550; 85025; 96374; 96376; A9270; G0378; G0379; J3475; J7120